=== PATIENT | male | born 1940 | race American Indian/Alaskan Native ===

== ENCOUNTER 2018-12-06 16:12 | Inpatient (IN) | payer MEDICARE ==
[2018-12-06 21:04] VITALS: BMI 27.4
[2018-12-07] MEDS ORDERED: Glucagon Recombinant 1 mg Inj IM PRN ×2 (00:03→12:53)
[2018-12-07] MEDS ORDERED: Dextrose 50% SYRINGE Inj (50 ml) IV PRN ×2 (00:03→12:53)
--- NOTE | 2018-12-07 00:13 | CP.PCM.HP ---
History of Present Illness - History of Present Illness History of Present Illness: This is a 77 year old Male who comes in because of RUE and RLE weakness s/p CVA transferred [place] [facility]. PT was also at the time having a change in mental status at that time and he is here with the inability to feed hi meself. He has a pmhx of DM, CAD s/p 2 stents, as mentioned before CVA, PVD, and s/p right TMA. He has no current compaints at this time. Present on Admission - Present on Admission Any Indicators Present on Admission: No History of DVT/PE: No History of Uncontrolled Diabetes: No Urinary Catheter: No Decubitus Ulcer Present: No Review of Systems - Review of Systems Systems not reviewed;Unavailable: Uncooperative - Constitutional Constitutional: absent: As Per HPI, Anorexia, Chills, Daytime Sleepiness, Excessive Sweating, Fatigue, Fever, Frequent Falls, Headache, Increased Appetite, Lethargy, Malaise, Night Sweats, Snoring, Sleep Apnea, Weight Gain, Weight Loss, Weakness, Other - EENT Eyes: absent: As Per HPI, Blind Spots, Blurred Vision, Change in Vision, Decreased Night Vision, Diplopia, Discharge, Dry Eye, Exophthalmos, Floaters, Irritation, Itchy Eyes, Loss of Peripheral Vision, Pain, Photophobia, Requires Corrective Lenses, Sees Flashes, Spots in Vision, Tunnel Vision, Other Visual Disturbances, Loss of Vision, Other Ears: absent: As Per HPI, Decreased Hearing, Ear Discharge, Ear Pain, Tinnitus, Abnormal Hearing, Disequilibrium, Dizziness, Other - Cardiovascular Cardiovascular: absent: As Per HPI, Acrocyanosis, Chest Pain, Chest Pain at Rest, Chest Pain with Activity, Claudication, Diaphoresis, Dyspnea, Dyspnea on Exertion, Edema, Irregular Heart Rhythm, Pain Radiating to Arm/Neck/Jaw, Leg Edema, Leg Ulcers, Lightheadedness, Orthopnea, Palpitations, Paroxysmal Nocturnal Dyspnea, Pedal Edema, Radiating Pain, Rapid Heart Rate, Slow Heart Rate, Syncope, Other - Respiratory Respiratory: absent: As Per HPI, Cough, Dyspnea, Hemoptysis, Dyspnea on Exertion, Wheezing, Snoring, Stridor, Pain on Inspiration, Chest Congestion, Excessive Mucous Production, Change in Mucous Color, Pain with Coughing, Other - Gastrointestinal Gastrointestinal: absent: As Per HPI, Abdominal Pain, Belching, Bloating, Change in Bowel Habits, Change in Stool Character, Coffee Ground Emesis, Constipation, Cramping, Diarrhea, Dyspepsia, Dysphagia, Early Satiety, Excessive Flatus, Fecal Incontinence, Heartburn, Hematemesis, Hematochezia, Loose Stools, Melena, Nausea, Odynophagia, Temesmus, Vomiting, Other - Musculoskeletal Musculoskeletal: Muscle Weakness - Integumentary Integumentary: absent: As Per HPI, Acne, Alopecia, Bleeding Lesions, Change in Hair, Change in Nails, Change in Pigmentation, Changing Lesions, Dry Skin, Erythema, Furuncle, Hirsutism, Lesions, New Lesions, Non-Healing Lesions, Photosensitivity, Pruritus, Rash, Skin Pain, Skin Ulcer, Sores, Striae, Swelling, Unusual Bruising, Wounds, Jaundice, Other Past Patient History - Past Medical History & Family History Past Medical History?: Yes - Past Social History Smoking Status: Unknown If Ever Smoked - CARDIAC Hx Cardiac Disorders: Yes (history of CAD) Hx Angina: Yes (Stable ANgina) Hx Atrial Fibrillation: No Hx Cardia Arrhythmia: No Hx Circulatory Problems: Yes (severe perpheral artery disease) Hx Congestive Heart Failure: No Hx Heart Attack: No Hx Heart Murmur: Yes (systolic murmur at lsb grade 2/6) Hx Hypercholesterolemia: Yes Hx Hypertension: Yes - PULMONARY Hx Respiratory Disorders: No - NEUROLOGICAL Hx Neurological Disorder: No - HEENT Hx HEENT Problems: No - RENAL Hx Chronic Kidney Disease: No - ENDOCRINE/METABOLIC Hx Diabetes Mellitus Type 1: No Hx Diabetes Mellitus Type 2: Yes (on insulin) - HEMATOLOGICAL/ONCOLOGICAL Hx Blood Disorders: No - INTEGUMENTARY Hx Dermatological Problems: No - MUSCULOSKELETAL/RHEUMATOLOGICAL Hx Musculoskeletal Disorders: No Hx Falls: No - GASTROINTESTINAL Hx Gastrointestinal Disorders: No - GENITOURINARY/GYNECOLOGICAL Hx Genitourinary Disorders: No - PSYCHIATRIC Hx Substance Use: No - SURGICAL HISTORY Hx Amputation: Yes (rt. transmetatarsal amputation.) Hx Coronary Stent: Yes (x2) - ANESTHESIA Hx Anesthesia: Yes Hx Anesthesia Reactions: No Hx Malignant Hyperthermia: No Meds Allergies/Adverse Reactions: Allergies Allergy/AdvReac Type Severity Reaction Status Date / Time No Known Allergies Allergy Verified 12/06/18 21:01 Physical Exam - Constitutional Appears: Well, No Acute Distress - Head Exam Head Exam: ATRAUMATIC, NORMAL INSPECTION, NORMOCEPHALIC - Eye Exam Eye Exam: EOMI, Normal appearance, PERRL Pupil Exam: NORMAL ACCOMODATION - ENT Exam ENT Exam: Mucous Membranes Moist, Normal Exam - Respiratory Exam Respiratory Exam: Clear to Auscultation Bilateral, NORMAL BREATHING PATTERN - Cardiovascular Exam Cardiovascular Exam: REGULAR RHYTHM - GI/Abdominal Exam GI & Abdominal Exam: Normal Bowel Sounds - Rectal Exam Rectal Exam: NORMAL INSPECTION - Extremities Exam Extremities exam: Positive for: normal inspection - Back Exam Back exam: NORMAL INSPECTION - Neurological Exam Neurological exam: Alert, CN II-XII Intact, Oriented x3 Additional comments: right upper and lower extremity weakness - Psychiatric Exam Psychiatric exam: Normal Affect, Normal Mood - Skin Skin Exam: Normal Color, Warm Assessment & Plan - Assessment and Plan (Free Text) Assessment: Patient with a pmhx of DM, CAD s/p 2 stents, CVA with residual right sided weakness, HTN, old NM with 2 stents, PVD, s/p TMA. Plan: transferred to Rehab from [facility] - Physiatry with Dr. West - Will restart all of home meds - carbohydarte controlled diet - swallow eval - Accuchecks ac and HS - restart humulin 70-/30 25 units BId as per home dose - restart aggrenox - restart gabapentin - draw am LABS further recommendations s/p labs - Date & Time Date: 12/07/18 Time: 00:24
[2018-12-07 07:36] LABS: BASO % 0.3 % (0.0-2.0); EOS # 0.1 K/uL (0.0-0.7); EOS % 1.7 % (0.0-4.0); HEMOGLOBIN 10.8 g/dL (12.0-18.0); LYMPH # 1.8 K/uL (1.0-4.3); LYMPH % 37.9 % (20.0-40.0); MEAN CELL VOLUME 80.6 fl (80.0-94.0); MEAN CORPUSCULAR HEMOGLOBIN 24.7 pg (27.0-31.0); MEAN CORPUSCULAR HGB CONC 30.6 g/dL (33.0-37.0); MEAN PLATELET VOLUME 10.7 fl (7.2-11.7); MONO # 0.4 K/uL (0.0-0.8); MONO % 8.5 % (0.0-10.0); NEUT # 2.5 K/uL (1.8-7.0); NEUT % 51.6 % (50.0-75.0); NRBC % 0.2 % (0.0-0.0); PLATELET COUNT 216 K/uL (130-400); RBC 4.39 Mil/uL (4.40-5.90); RED CELL DISTRIBUTION WIDTH 29.1 % (11.5-14.5); WHITE BLOOD COUNT 4.8 K/uL (4.8-10.8)
[2018-12-07 07:42] LABS: ALBUMIN 3.5 g/dL (3.5-5.0); ALT/SGPT 29 U/L (21-72); AST/SGOT 31 U/L (17-59); BLOOD UREA NITROGEN 19 mg/dl (9-20); CALCIUM 8.9 mg/dL (8.4-10.2); GFR NON-AFRICAN AMERICAN > 60; HDL CHOLESTEROL 57 MG/DL (30-70)
[2018-12-07 07:52] LABS: LDL CHOLESTEROL 99 mg/dL (0-129)
[2018-12-07] MEDS ORDERED: Insulin NPH Human 100 Units/ml Inj SC SCH (09:00)
[2018-12-07] MEDS: Aspirin-Dipyridamole 200-25 mg ER Cap PO SCH ×2 (09:19→17:14)
[2018-12-07] MEDS: Insulin Lispro Mix 75/25 100 units/ml (HumaLog) 10ml SC SCH ×2 (09:23→17:18)
[2018-12-07 10:31] LABS: BANDS 1 % (0-2); EOSINOPHIL 6 % (0-7); LYMPHOCYTE 25 % (20-50); MONOCYTE 5 % (0-10); NEUTROPHIL 63 % (42-75); PLATELET ESTIMATE NORMAL (NORMAL); TOTAL CELLS COUNTED 100
[2018-12-07 10:34] LABS: ANISOCYTOSIS SLIGHT; POIKILOCYTOSIS SLIGHT
[2018-12-07 10:35] LABS: BURR CELLS SLIGHT; GIANT PLATELETS PRESENT; LARGE PLATELETS PRESENT; OVALOCYTES SLIGHT; TARGET CELLS SLIGHT; TEARDROP CELLS SLIGHT
--- NOTE | 2018-12-07 13:50 | CP.PCM.CON ---
History of Present Illness - History of Present Illness History of Present Illness: Patient seen/examined. full consult to follow. continue amiodarone 200 mg daily. once cleared from neuro standpoint, will recommend Xarelto 20 mg daily. Past Patient History - Past Medical History & Family History Past Medical History?: Yes - Past Social History Smoking Status: Unknown If Ever Smoked - CARDIAC Hx Cardiac Disorders: Yes (history of CAD) Hx Angina: Yes (Stable ANgina) Hx Atrial Fibrillation: No Hx Cardia Arrhythmia: No Hx Circulatory Problems: Yes (severe perpheral artery disease) Hx Congestive Heart Failure: No Hx Heart Attack: No Hx Heart Murmur: Yes (systolic murmur at lsb grade 2/6) Hx Hypercholesterolemia: Yes Hx Hypertension: Yes - PULMONARY Hx Respiratory Disorders: No - NEUROLOGICAL Hx Neurological Disorder: No - HEENT Hx HEENT Problems: No - RENAL Hx Chronic Kidney Disease: No - ENDOCRINE/METABOLIC Hx Diabetes Mellitus Type 1: No Hx Diabetes Mellitus Type 2: Yes (on insulin) - HEMATOLOGICAL/ONCOLOGICAL Hx Blood Disorders: No - INTEGUMENTARY Hx Dermatological Problems: No - MUSCULOSKELETAL/RHEUMATOLOGICAL Hx Musculoskeletal Disorders: No Hx Falls: No - GASTROINTESTINAL Hx Gastrointestinal Disorders: No - GENITOURINARY/GYNECOLOGICAL Hx Genitourinary Disorders: No - PSYCHIATRIC Hx Substance Use: No - SURGICAL HISTORY Hx Amputation: Yes (rt. transmetatarsal amputation.) Hx Coronary Stent: Yes (x2) - ANESTHESIA Hx Anesthesia: Yes Hx Anesthesia Reactions: No Hx Malignant Hyperthermia: No Meds Allergies/Adverse Reactions: Allergies Allergy/AdvReac Type Severity Reaction Status Date / Time No Known Allergies Allergy Verified 12/06/18 21:01 - Medications Medications: Current Medications Amiodarone HCl (Cordarone) 200 mg PO DAILY [facility] Last Admin: 12/07/18 09:18 Dose: 200 mg Atorvastatin Calcium (Lipitor) 80 mg PO HS NARESH Azithromycin (Zithromax) 250 mg PO DAILY NARESH; Protocol Stop: 12/10/18 09:01 Last Admin: 12/07/18 09:19 Dose: 250 mg Dextrose (Dextrose 50% Inj) 0 ml IV STAT PRN; Protocol PRN Reason: Hypoglycemia Protocol Dextrose (Glutose 15) 0 gm PO ONCE PRN; Protocol PRN Reason: Hypoglycemia Protocol Dextrose (Dextrose 50% Inj) 0 ml IV STAT PRN; Protocol PRN Reason: Hypoglycemia Protocol Dextrose (Glutose 15) 0 gm PO ONCE PRN; Protocol PRN Reason: Hypoglycemia Protocol Dipyridamole/Aspirin (Aggrenox 25-200 Mg) 1 ea PO BID [facility] Last Admin: 12/07/18 09:19 Dose: 1 ea Gabapentin (Neurontin) 300 mg PO BID [facility] Last Admin: 12/07/18 09:17 Dose: 300 mg Glucagon (Glucagen Diagnostic Kit) 0 mg IM STAT PRN; Protocol PRN Reason: Hypoglycemia Protocol Glucagon (Glucagen Diagnostic Kit) 0 mg IM STAT PRN; Protocol PRN Reason: Hypoglycemia Protocol Insulin Human Lispro (Humalog) 0 units SC ACHS [facility]; Protocol Insulin Lispro Protam/Lispro Human (Humalog Mix 75/25) 20 units SC DIN NARESH Insulin Lispro Protam/Lispro Human (Humalog Mix 75/25) 25 units SC BRK [facility] Last Admin: 12/07/18 09:23 Dose: 25 units Pregabalin (Lyrica) 50 mg PO BID [facility] Last Admin: 12/07/18 09:25 Dose: 50 mg Results - Vital Signs Recent Vital Signs: Last Vital Signs Temp 98.1 F 12/07/18 08:00 Pulse 85 12/07/18 09:18 Resp 20 12/07/18 08:00 BP 126/78 12/07/18 09:18 Pulse Ox 99 12/07/18 08:18 - Labs Result Diagrams: 12/07/18 05:30 12/07/18 05:30 Labs: Laboratory Results - last 24 hr 12/07/18 12/07/18 12/07/18 02:13 05:30 05:30 WBC 4.8 RBC 4.39 L Hgb 10.8 L Hct 35.4 MCV 80.6 MCH 24.7 L MCHC 30.6 L RDW 29.1 H Plt Count 216 MPV 10.7 Neut % (Auto) 51.6 Lymph % (Auto) 37.9 [place] % (Auto) 8.5 Eos % (Auto) 1.7 Baso % (Auto) 0.3 Neut # (Auto) 2.5 Lymph # (Auto) 1.8 [place] # (Auto) 0.4 Eos # (Auto) 0.1 Baso # (Auto) 0.0 Neutrophils % (Manual) 63 Band Neutrophils % 1 Lymphocytes % (Manual) 25 Monocytes % (Manual) 5 Eosinophils % (Manual) 6 Platelet Estimate Normal Large Platelets Present Giant Platelets Present Poikilocytosis (manual Slight Anisocytosis (manual) Slight Macrocytosis (manual) Slight Target Cells Slight Tear Drop Cells Slight Ovalocytes Slight [place] Cells Slight Sodium 140 Potassium 3.8 Chloride 106 Carbon Dioxide 24 Anion Gap 14 BUN 19 Creatinine 0.8 Est GFR ( Amer) > 60 Est GFR (Non-Af Amer) > 60 POC Glucose (mg/dL) 153 H Random Glucose 88 Calcium 8.9 Magnesium 2.1 Total Bilirubin 0.5 AST 31 ALT 29 Alkaline Phosphatase 107 Total Protein 6.9 Albumin 3.5 Globulin 3.4 Albumin/Globulin Ratio 1.0 Triglycerides 66 Cholesterol 178 LDL Cholesterol Direct 99 HDL Cholesterol 57 TSH 3rd Generation 2.74 12/07/18 12/07/18 12/07/18 05:52 11:02 12:24 WBC RBC Hgb Hct MCV MCH MCHC RDW Plt Count MPV Neut % (Auto) Lymph % (Auto) [place] % (Auto) Eos % (Auto) Baso % (Auto) Neut # (Auto) Lymph # (Auto) [place] # (Auto) Eos # (Auto) Baso # (Auto) Neutrophils % (Manual) Band Neutrophils % Lymphocytes % (Manual) Monocytes % (Manual) Eosinophils % (Manual) Platelet Estimate Large Platelets Giant Platelets Poikilocytosis (manual Anisocytosis (manual) Macrocytosis (manual) Target Cells Tear Drop Cells Ovalocytes [place] Cells Sodium Potassium Chloride Carbon Dioxide Anion Gap BUN Creatinine Est GFR ( Amer) Est GFR (Non-Af Amer) POC Glucose (mg/dL) 99 362 H 259 H Random Glucose Calcium Magnesium Total Bilirubin AST ALT Alkaline Phosphatase Total Protein Albumin Globulin Albumin/Globulin Ratio Triglycerides Cholesterol LDL Cholesterol Direct HDL Cholesterol TSH 3rd Generation
--- NOTE | 2018-12-07 13:50 | CP.PCM.CON ---
History of Present Illness - History of Present Illness History of Present Illness: I was asked to see patient by Dr Rocha. Patient seen 12/07/18 1300 Patient is a 77 year old male with HTN PAF, hypercholesterolemia, PAD who presents for rehab. The patient was admitted to [facility] [place] with r sided hemiparesis, and found to have an ischemic stroke. He previously was on Xarelto but this was discontinued due to anemia and presumed GI bleed. He has has multiple admissions for anemia requiring blood transfusion. He has no current chest pain or dyspnea. Review of Systems - Constitutional Constitutional: absent: As Per HPI, Anorexia, Chills, Daytime Sleepiness, Excessive Sweating, Fatigue, Fever, Frequent Falls, Headache, Increased Appetite, Lethargy, Malaise, Night Sweats, Snoring, Sleep Apnea, Weight Gain, Weight Loss, Weakness, Other - EENT Eyes: absent: As Per HPI, Blind Spots, Blurred Vision, Change in Vision, Decreased Night Vision, Diplopia, Discharge, Dry Eye, Exophthalmos, Floaters, Irritation, Itchy Eyes, Loss of Peripheral Vision, Pain, Photophobia, Requires Corrective Lenses, Sees Flashes, Spots in Vision, Tunnel Vision, Other Visual Disturbances, Loss of Vision, Other Ears: absent: As Per HPI, Decreased Hearing, Ear Discharge, Ear Pain, Tinnitus, Abnormal Hearing, Disequilibrium, Dizziness, Other Nose/Mouth/Throat: absent: As Per HPI, Epistaxis, Nasal Congestion, Nasal Discharge, Nasal Obstruction, Nasal Trauma, Nose Pain, Post Nasal Drip, Sinus Pain, Sinus Pressure, Bleeding Gums, Change in Voice, Dental Pain, Dry Mouth, Dysphagia, Halitosis, Hoarsness, Lip Swelling, Mouth Lesions, Mouth Pain, Odynophagia, Sore Throat, Throat Swelling, Tongue Swelling, Facial Pain, Neck Pain, Neck Mass, Other - Cardiovascular Cardiovascular: absent: As Per HPI, Acrocyanosis, Chest Pain, Chest Pain at Rest, Chest Pain with Activity, Claudication, Diaphoresis, Dyspnea, Dyspnea on Exertion, Edema, Irregular Heart Rhythm, Pain Radiating to Arm/Neck/Jaw, Leg Edema, Leg Ulcers, Lightheadedness, Orthopnea, Palpitations, Paroxysmal Nocturnal Dyspnea, Pedal Edema, Radiating Pain, Rapid Heart Rate, Slow Heart Rat e, Syncope, Other - Respiratory Respiratory: absent: As Per HPI, Cough, Dyspnea, Hemoptysis, Dyspnea on Exertion, Wheezing, Snoring, Stridor, Pain on Inspiration, Chest Congestion, Excessive Mucous Production, Change in Mucous Color, Pain with Coughing, Other - Gastrointestinal Gastrointestinal: absent: As Per HPI, Abdominal Pain, Belching, Bloating, Change in Bowel Habits, Change in Stool Character, Coffee Ground Emesis, Constipation, Cramping, Diarrhea, Dyspepsia, Dysphagia, Early Satiety, Excessive Flatus, Fecal Incontinence, Heartburn, Hematemesis, Hematochezia, Loose Stools, Melena, Nausea, Odynophagia, Temesmus, Vomiting, Other - Genitourinary Genitourinary: absent: As Per HPI, Change in Urinary Stream, Difficulty Urinating, Dysuria, Flank Pain, Hematuria, Pyuria, Nocturia, Urinary Incontinence, Urinary Frequency, Urinary Hesitance, Urinary Urgency, Voiding Freq/Small Amts, Freq UTI, Hx Renal/Bladder Calculi, Hx /Renal Surgery, Bladder Distension, Other - Musculoskeletal Musculoskeletal: absent: As Per HPI, Abnormal Gait, Arthralgias, Atrophy, Back Pain, Deformity, Joint Swelling, Limited Range of Motion, Loss of Height, Muscle Cramps, Muscle Weakness, Myalgias, Neck Pain, Numbness, Radiating Pain into Limb, Stiffness, Tingling, Other - Integumentary Integumentary: absent: As Per HPI, Acne, Alopecia, Bleeding Lesions, Change in Hair, Change in Nails, Change in Pigmentation, Changing Lesions, Dry Skin, Erythema, Furuncle, Hirsutism, Lesions, New Lesions, Non-Healing Lesions, Photosensitivity, Pruritus, Rash, Skin Pain, Skin Ulcer, Sores, Striae, Swelling, Unusual Bruising, Wounds, Jaundice, Other - Neurological Neurological: Weakness - Psychiatric Psychiatric: absent: As Per HPI, Abnormal Sleep Pattern, Anhedonia, Anxiety, Auditory Hallucinations, Behavioral Changes, Change in Appetite, Change in Libido, Confusion, Depression, Difficulty Concentrating, Hallucinations, Homicidal Ideation, Hopelessness, Irritability, Memory Loss, Mood Swings, Panic Attacks, Paranoia, Suicidal Ideation, Visual Hallucinations, Tactile Hallucinations, Other - Endocrine Endocrine: absent: As Per HPI, Change in Body Appearance, Change in Libido, Cold Intolorance, Deepening of Voice, Excessive Sweating, Fatigue, Flushing, Heat Intolorance, Increase in Ring/Shoe/Hat Size, Palpitations, Polydipsia, Polyphagia, Polyuria, Other - Hematologic/Lymphatic Hematologic: absent: As Per HPI, Easy Bleeding, Easy Bruising, Lymphadenopathy, Other Past Patient History - Past Medical History & Family History Past Medical History?: Yes - Past Social History Smoking Status: Unknown If Ever Smoked - CARDIAC Hx Cardiac Disorders: Yes (history of CAD) Hx Angina: Yes (Stable ANgina) Hx Atrial Fibrillation: No Hx Cardia Arrhythmia: No Hx Circulatory Problems: Yes (severe perpheral artery disease) Hx Congestive Heart Failure: No Hx Heart Attack: No Hx Heart Murmur: Yes (systolic murmur at lsb grade 2/6) Hx Hypercholesterolemia: Yes Hx Hypertension: Yes - PULMONARY Hx Respiratory Disorders: No - NEUROLOGICAL Hx Neurological Disorder: No - HEENT Hx HEENT Problems: No - RENAL Hx Chronic Kidney Disease: No - ENDOCRINE/METABOLIC Hx Diabetes Mellitus Type 1: No Hx Diabetes Mellitus Type 2: Yes (on insulin) - HEMATOLOGICAL/ONCOLOGICAL Hx Blood Disorders: No - INTEGUMENTARY Hx Dermatological Problems: No - MUSCULOSKELETAL/RHEUMATOLOGICAL Hx Musculoskeletal Disorders: No Hx Falls: No - GASTROINTESTINAL Hx Gastrointestinal Disorders: No - GENITOURINARY/GYNECOLOGICAL Hx Genitourinary Disorders: No - PSYCHIATRIC Hx Substance Use: No - SURGICAL HISTORY Hx Amputation: Yes (rt. transmetatarsal amputation.) Hx Coronary Stent: Yes (x2) - ANESTHESIA Hx Anesthesia: Yes Hx Anesthesia Reactions: No Hx Malignant Hyperthermia: No Meds Allergies/Adverse Reactions: Allergies Allergy/AdvReac Type Severity Reaction Status Date / Time No Known Allergies Allergy Verified 12/06/18 21:01 - Medications Medications: Current Medications Amiodarone HCl (Cordarone) 200 mg PO DAILY [facility] Last Admin: 12/07/18 09:18 Dose: 200 mg Atorvastatin Calcium (Lipitor) 80 mg PO HS NARESH Azithromycin (Zithromax) 250 mg PO DAILY NARESH; Protocol Stop: 12/10/18 09:01 Last Admin: 12/07/18 09:19 Dose: 250 mg Dextrose (Dextrose 50% Inj) 0 ml IV STAT PRN; Protocol PRN Reason: Hypoglycemia Protocol Dextrose (Glutose 15) 0 gm PO ONCE PRN; Protocol PRN Reason: Hypoglycemia Protocol Dextrose (Dextrose 50% Inj) 0 ml IV STAT PRN; Protocol PRN Reason: Hypoglycemia Protocol Dextrose (Glutose 15) 0 gm PO ONCE PRN; Protocol PRN Reason: Hypoglycemia Protocol Dipyridamole/Aspirin (Aggrenox 25-200 Mg) 1 ea PO BID [facility] Last Admin: 12/07/18 09:19 Dose: 1 ea Gabapentin (Neurontin) 300 mg PO BID [facility] Last Admin: 12/07/18 09:17 Dose: 300 mg Glucagon (Glucagen Diagnostic Kit) 0 mg IM STAT PRN; Protocol PRN Reason: Hypoglycemia Protocol Glucagon (Glucagen Diagnostic Kit) 0 mg IM STAT PRN; Protocol PRN Reason: Hypoglycemia Protocol Insulin Human Lispro (Humalog) 0 units SC ACHS [facility]; Protocol Insulin Lispro Protam/Lispro Human (Humalog Mix 75/25) 20 units SC DIN NARESH Insulin Lispro Protam/Lispro Human (Humalog Mix 75/25) 25 units SC BRK [facility] Last Admin: 12/07/18 09:23 Dose: 25 units Pregabalin (Lyrica) 50 mg PO BID [facility] Last Admin: 12/07/18 09:25 Dose: 50 mg Physical Exam - Constitutional Appears: Non-toxic - Head Exam Head Exam: NORMAL INSPECTION - Eye Exam Eye Exam: Normal appearance - ENT Exam ENT Exam: Mucous Membranes Moist - Neck Exam Neck exam: Positive for: Full Rom - Respiratory Exam Respiratory Exam: NORMAL BREATHING PATTERN - Cardiovascular Exam Cardiovascular Exam: REGULAR RHYTHM - GI/Abdominal Exam GI & Abdominal Exam: Normal Bowel Sounds - Rectal Exam Rectal Exam: Deferred - Extremities Exam Extremities exam: Negative for: pedal edema - Back Exam Back exam: NORMAL INSPECTION - Neurological Exam Neurological exam: Alert, Oriented x3 - Psychiatric Exam Psychiatric exam: Normal Affect - Skin Skin Exam: Normal Color Results - Vital Signs Recent Vital Signs: Last Vital Signs Temp 98.1 F 12/07/18 08:00 Pulse 85 12/07/18 09:18 Resp 20 12/07/18 08:00 BP 126/78 12/07/18 09:18 Pulse Ox 99 12/07/18 08:18 - Labs Result Diagrams: 12/07/18 05:30 12/07/18 05:30 Labs: Laboratory Results - last 24 hr 12/07/18 12/07/18 12/07/18 02:13 05:30 05:30 WBC 4.8 RBC 4.39 L Hgb 10.8 L Hct 35.4 MCV 80.6 MCH 24.7 L MCHC 30.6 L RDW 29.1 H Plt Count 216 MPV 10.7 Neut % (Auto) 51.6 Lymph % (Auto) 37.9 [place] % (Auto) 8.5 Eos % (Auto) 1.7 Baso % (Auto) 0.3 Neut # (Auto) 2.5 Lymph # (Auto) 1.8 [place] # (Auto) 0.4 Eos # (Auto) 0.1 Baso # (Auto) 0.0 Neutrophils % (Manual) 63 Band Neutrophils % 1 Lymphocytes % (Manual) 25 Monocytes % (Manual) 5 Eosinophils % (Manual) 6 Platelet Estimate Normal Large Platelets Present Giant Platelets Present Poikilocytosis (manual Slight Anisocytosis (manual) Slight Macrocytosis (manual) Slight Target Cells Slight Tear Drop Cells Slight Ovalocytes Slight [place] Cells Slight Sodium 140 Potassium 3.8 Chloride 106 Carbon Dioxide 24 Anion Gap 14 BUN 19 Creatinine 0.8 Est GFR ( Amer) > 60 Est GFR (Non-Af Amer) > 60 POC Glucose (mg/dL) 153 H Random Glucose 88 Calcium 8.9 Magnesium 2.1 Total Bilirubin 0.5 AST 31 ALT 29 Alkaline Phosphatase 107 Total Protein 6.9 Albumin 3.5 Globulin 3.4 Albumin/Globulin Ratio 1.0 Triglycerides 66 Cholesterol 178 LDL Cholesterol Direct 99 HDL Cholesterol 57 TSH 3rd Generation 2.74 12/07/18 12/07/18 12/07/18 05:52 11:02 12:24 WBC RBC Hgb Hct MCV MCH MCHC RDW Plt Count MPV Neut % (Auto) Lymph % (Auto) [place] % (Auto) Eos % (Auto) Baso % (Auto) Neut # (Auto) Lymph # (Auto) [place] # (Auto) Eos # (Auto) Baso # (Auto) Neutrophils % (Manual) Band Neutrophils % Lymphocytes % (Manual) Monocytes % (Manual) Eosinophils % (Manual) Platelet Estimate Large Platelets Giant Platelets Poikilocytosis (manual Anisocytosis (manual) Macrocytosis (manual) Target Cells Tear Drop Cells Ovalocytes [place] Cells Sodium Potassium Chloride Carbon Dioxide Anion Gap BUN Creatinine Est GFR ( Amer) Est GFR (Non-Af Amer) POC Glucose (mg/dL) 99 362 H 259 H Random Glucose Calcium Magnesium Total Bilirubin AST ALT Alkaline Phosphatase Total Protein Albumin Globulin Albumin/Globulin Ratio Triglycerides Cholesterol LDL Cholesterol Direct HDL Cholesterol TSH 3rd Generation - EKG Data EKG Interpreted by: Myself EKG shows normal: Sinus rhythm Assessment & Plan (1) PAF (paroxysmal atrial fibrillation) Assessment and Plan: ideally patient would benefit from anticaogulant therapy. will defer to neruology Status: Acute (2) PAD (peripheral artery disease) Assessment and Plan: on antiplatelet therapy Status: Acute (3) Ischemic stroke Assessment and Plan: as above. neuro following Status: Acute
--- NOTE | 2018-12-07 15:10 | CP.PCM.CON ---
History of Present Illness - History of Present Illness History of Present Illness: Neurology Consultation Note: Consult requested by Dr. Rocha Mr. Trivedi is a 77-year-old man with a past medical history of HTN, HLD, CAD s/p stenting with 2 previous VT, PVD s/p TMA, RLE angioplasty, DM, neuropathy, spinal stenosis, previous ischemic stroke who was admitted recently to [facility] for acute onset of right side hemiplegia, suspected of having a new ischemic stroke. He was transferred to [facility] acute rehab yesterday. Neurology was consulted to assist with the management and care. He is currently on Aggrenox and Lipitor 80 mg daily for secondary stroke prevention. The patient had no new complaints today. Review of Systems - Constitutional Constitutional: As Per HPI - EENT Eyes: absent: As Per HPI, Blind Spots, Blurred Vision, Change in Vision, Decreased Night Vision, Diplopia, Discharge, Dry Eye, Exophthalmos, Floaters, Irritation, Itchy Eyes, Loss of Peripheral Vision, Pain, Photophobia, Requires Corrective Lenses, Sees Flashes, Spots in Vision, Tunnel Vision, Other Visual Disturbances, Loss of Vision, Other Ears: absent: As Per HPI, Decreased Hearing, Ear Discharge, Ear Pain, Tinnitus, Abnormal Hearing, Disequilibrium, Dizziness, Other Nose/Mouth/Throat: absent: As Per HPI, Epistaxis, Nasal Congestion, Nasal Discharge, Nasal Obstruction, Nasal Trauma, Nose Pain, Post Nasal Drip, Sinus Pain, Sinus Pressure, Bleeding Gums, Change in Voice, Dental Pain, Dry Mouth, Dysphagia, Halitosis, Hoarsness, Lip Swelling, Mouth Lesions, Mouth Pain, Odynophagia, Sore Throat, Throat Swelling, Tongue Swelling, Facial Pain, Neck Pain, Neck Mass, Other - Cardiovascular Cardiovascular: absent: As Per HPI, Acrocyanosis, Chest Pain, Chest Pain at Rest, Chest Pain with Activity, Claudication, Diaphoresis, Dyspnea, Dyspnea on Exertion, Edema, Irregular Heart Rhythm, Pain Radiating to Arm/Neck/Jaw, Leg Edema, Leg Ulcers, Lightheadedness, Orthopnea, Palpitations, Paroxysmal Nocturnal Dyspnea, Pedal Edema, Radiating Pain, Rapid Heart Rate, Slow Heart Rate, Syncope, Other - Respiratory Respiratory: absent: As Per HPI, Cough, Dyspnea, Hemoptysis, Dyspnea on Exertion, Wheezing, Snoring, Stridor, Pain on Inspiration, Chest Congestion, Excessive Mucous Production, Change in Mucous Color, Pain with Coughing, Other - Gastrointestinal Gastrointestinal: absent: As Per HPI, Abdominal Pain, Belching, Bloating, Change in Bowel Habits, Change in Stool Character, Coffee Ground Emesis, Constipation, Cramping, Diarrhea, Dyspepsia, Dysphagia, Early Satiety, Excessive Flatus, Fecal Incontinence, Heartburn, Hematemesis, Hematochezia, Loose Stools, Melena, Nausea, Odynophagia, Temesmus, Vomiting, Other - Musculoskeletal Musculoskeletal: absent: As Per HPI, Abnormal Gait, Arthralgias, Atrophy, Back Pain, Deformity, Joint Swelling, Limited Range of Motion, Loss of Height, Muscle Cramps, Muscle Weakness, Myalgias, Neck Pain, Numbness, Radiating Pain into Limb, Stiffness, Tingling, Other - Neurological Neurological: As Per HPI - Psychiatric Psychiatric: absent: As Per HPI, Abnormal Sleep Pattern, Anhedonia, Anxiety, Auditory Hallucinations, Behavioral Changes, Change in Appetite, Change in Libido, Confusion, Depression, Difficulty Concentrating, Hallucinations, Homicidal Ideation, Hopelessness, Irritability, Memory Loss, Mood Swings, Panic Attacks, Paranoia, Suicidal Ideation, Visual Hallucinations, Tactile Hallucinations, Other - Endocrine Endocrine: absent: As Per HPI, Change in Body Appearance, Change in Libido, Cold Intolorance, Deepening of Voice, Excessive Sweating, Fatigue, Flushing, Heat Intolorance, Increase in Ring/Shoe/Hat Size, Palpitations, Polydipsia, Polyphagia, Polyuria, Other - Hematologic/Lymphatic Hematologic: absent: As Per HPI, Easy Bleeding, Easy Bruising, Lymphadenopathy, Other Past Patient History - Past Medical History & Family History Past Medical History?: Yes - Past Social History Smoking Status: Unknown If Ever Smoked - CARDIAC Hx Cardiac Disorders: Yes (history of CAD) Hx Angina: Yes (Stable ANgina) Hx Atrial Fibrillation: No Hx Cardia Arrhythmia: No Hx Circulatory Problems: Yes (severe perpheral artery disease) Hx Congestive Heart Failure: No Hx Heart Attack: No Hx Heart Murmur: Yes (systolic murmur at lsb grade 2/6) Hx Hypercholesterolemia: Yes Hx Hypertension: Yes - PULMONARY Hx Respiratory Disorders: No - NEUROLOGICAL Hx Neurological Disorder: No - HEENT Hx HEENT Problems: No - RENAL Hx Chronic Kidney Disease: No - ENDOCRINE/METABOLIC Hx Diabetes Mellitus Type 1: No Hx Diabetes Mellitus Type 2: Yes (on insulin) - HEMATOLOGICAL/ONCOLOGICAL Hx Blood Disorders: No - INTEGUMENTARY Hx Dermatological Problems: No - MUSCULOSKELETAL/RHEUMATOLOGICAL Hx Musculoskeletal Disorders: No Hx Falls: No - GASTROINTESTINAL Hx Gastrointestinal Disorders: No - GENITOURINARY/GYNECOLOGICAL Hx Genitourinary Disorders: No - PSYCHIATRIC Hx Substance Use: No - SURGICAL HISTORY Hx Amputation: Yes (rt. transmetatarsal amputation.) Hx Coronary Stent: Yes (x2) - ANESTHESIA Hx Anesthesia: Yes Hx Anesthesia Reactions: No Hx Malignant Hyperthermia: No Meds Allergies/Adverse Reactions: Allergies Allergy/AdvReac Type Severity Reaction Status Date / Time No Known Allergies Allergy Verified 12/06/18 21:01 - Medications Medications: Current Medications Amiodarone HCl (Cordarone) 200 mg PO DAILY COUNT [facility]CLUDES [facility] Last Admin: 12/07/18 09:18 Dose: 200 mg Atorvastatin Calcium (Lipitor) 80 mg PO HS COUNT INCLUDES [facility] Azithromycin (Zithromax) 250 mg PO DAILY COUNT INCLUDES [facility]; Protocol Stop: 12/10/18 09:01 Last Admin: 12/07/18 09:19 Dose: 250 mg Dextrose (Dextrose 50% Inj) 0 ml IV STAT PRN; Protocol PRN Reason: Hypoglycemia Protocol Dextrose (Glutose 15) 0 gm PO ONCE PRN; Protocol PRN Reason: Hypoglycemia Protocol Dextrose (Dextrose 50% Inj) 0 ml IV STAT PRN; Protocol PRN Reason: Hypoglycemia Protocol Dextrose (Glutose 15) 0 gm PO ONCE PRN; Protocol PRN Reason: Hypoglycemia Protocol Dipyridamole/Aspirin (Aggrenox 25-200 Mg) 1 ea PO BID COUNT [facility]CLUDES [facility] Last Admin: 12/07/18 09:19 Dose: 1 ea Gabapentin (Neurontin) 300 mg PO BID COUNT [facility]CLUDES [facility] Last Admin: 12/07/18 09:17 Dose: 300 mg Glucagon (Glucagen Diagnostic Kit) 0 mg IM STAT PRN; Protocol PRN Reason: Hypoglycemia Protocol Glucagon (Glucagen Diagnostic Kit) 0 mg IM STAT PRN; Protocol PRN Reason: Hypoglycemia Protocol Insulin Human Lispro (Humalog) 0 units SC ACHS COUNT INCLUDES [facility]; Protocol Insulin Lispro Protam/Lispro Human (Humalog Mix 75/25) 20 units SC DIN COUNT INCLUDES [facility] Insulin Lispro Protam/Lispro Human (Humalog Mix 75/25) 25 units SC BRK COUNT INCLUDES THE [facility] Last Admin: 12/07/18 09:23 Dose: 25 units Pregabalin (Lyrica) 50 mg PO BID NARESH Last Admin: 12/07/18 09:25 Dose: 50 mg Physical Exam - Constitutional Appears: Well - Head Exam Head Exam: ATRAUMATIC, NORMAL INSPECTION, NORMOCEPHALIC - Eye Exam Eye Exam: EOMI, Normal appearance, PERRL Pupil Exam: NORMAL ACCOMODATION, PERRL - ENT Exam ENT Exam: Mucous Membranes Moist, Normal Exam - Neck Exam Neck exam: Positive for: Normal Inspection - Respiratory Exam Respiratory Exam: Clear to Auscultation Bilateral, NORMAL BREATHING PATTERN - Cardiovascular Exam Cardiovascular Exam: REGULAR RHYTHM, +S1, +S2 - GI/Abdominal Exam GI & Abdominal Exam: Normal Bowel Sounds, Soft. absent: Tenderness - Extremities Exam Extremities exam: Positive for: normal inspection - Back Exam Back exam: NORMAL INSPECTION - Neurological Exam Neurological exam: Alert, CN II-XII Intact, Oriented x3 Additional comments: Right facial droop noted, speech is slightly dysarthric, but not aphasic. Reflexes are brisk on the right side. He has a slight left side visual field cut. Strength is 3/5 in right upper extremity and 4/5 in right lower extremity. Sensation is symmetrical throughout. Strength on the left side is 4/5 in both upper and lower extremities. NIHSS = 5 - Psychiatric Exam Psychiatric exam: Normal Affect, Normal Mood - Skin Skin Exam: Dry, Intact, Normal Color, Warm Results - Vital Signs Recent Vital Signs: Last Vital Signs Temp 97 F L 12/07/18 13:00 Pulse 75 12/07/18 13:00 Resp 20 12/07/18 13:00 BP 145/65 12/07/18 13:00 Pulse Ox 98 12/07/18 13:00 - Labs Result Diagrams: 12/07/18 05:30 12/07/18 05:30 Labs: Laboratory Results - last 24 hr 12/07/18 12/07/18 12/07/18 02:13 05:30 05:30 WBC 4.8 RBC 4.39 L Hgb 10.8 L Hct 35.4 MCV 80.6 MCH 24.7 L MCHC 30.6 L RDW 29.1 H Plt Count 216 MPV 10.7 Neut % (Auto) 51.6 Lymph % (Auto) 37.9 [place] % (Auto) 8.5 Eos % (Auto) 1.7 Baso % (Auto) 0.3 Neut # (Auto) 2.5 Lymph # (Auto) 1.8 [place] # (Auto) 0.4 Eos # (Auto) 0.1 Baso # (Auto) 0.0 Neutrophils % (Manual) 63 Band Neutrophils % 1 Lymphocytes % (Manual) 25 Monocytes % (Manual) 5 Eosinophils % (Manual) 6 Platelet Estimate Normal Large Platelets Present Giant Platelets Present Poikilocytosis (manual Slight Anisocytosis (manual) Slight Macrocytosis (manual) Slight Target Cells Slight Tear Drop Cells Slight Ovalocytes Slight [place] Cells Slight Sodium 140 Potassium 3.8 Chloride 106 Carbon Dioxide 24 Anion Gap 14 BUN 19 Creatinine 0.8 Est GFR ( Amer) > 60 Est GFR (Non-Af Amer) > 60 POC Glucose (mg/dL) 153 H Random Glucose 88 Calcium 8.9 Magnesium 2.1 Total Bilirubin 0.5 AST 31 ALT 29 Alkaline Phosphatase 107 Total Protein 6.9 Albumin 3.5 Globulin 3.4 Albumin/Globulin Ratio 1.0 Triglycerides 66 Cholesterol 178 LDL Cholesterol Direct 99 HDL Cholesterol 57 TSH 3rd Generation 2.74 12/07/18 12/07/18 12/07/18 05:52 11:02 12:24 WBC RBC Hgb Hct MCV MCH MCHC RDW Plt Count MPV Neut % (Auto) Lymph % (Auto) [place] % (Auto) Eos % (Auto) Baso % (Auto) Neut # (Auto) Lymph # (Auto) [place] # (Auto) Eos # (Auto) Baso # (Auto) Neutrophils % (Manual) Band Neutrophils % Lymphocytes % (Manual) Monocytes % (Manual) Eosinophils % (Manual) Platelet Estimate Large Platelets Giant Platelets Poikilocytosis (manual Anisocytosis (manual) Macrocytosis (manual) Target Cells Tear Drop Cells Ovalocytes [place] Cells Sodium Potassium Chloride Carbon Dioxide Anion Gap BUN Creatinine Est GFR ( Amer) Est GFR (Non-Af Amer) POC Glucose (mg/dL) 99 362 H 259 H Random Glucose Calcium Magnesium Total Bilirubin AST ALT Alkaline Phosphatase Total Protein Albumin Globulin Albumin/Globulin Ratio Triglycerides Cholesterol LDL Cholesterol Direct HDL Cholesterol TSH 3rd Generation Assessment & Plan (1) Ischemic stroke Assessment and Plan: Continue Aggrenox for secondary stroke prevention along with high dose Lipitor 80 mg daily. Will evaluate the degree of damage and evolution of the recent ischemic stroke with a non-contrast CT scan of the head. PT/OT per the rehab team. Continue adequate hydration with 2-3 liters daily to maintain cerebral pe rfusion. Treat underlying risk factors. Thank you for this consultation. Status: Acute
--- NOTE | 2018-12-07 15:31 | PCM.OPOC ---
Physiatry Overall Plan of Care - Overall Plan of Care Estimated Length of Stay in Weeks: 3 Rehab Impairment: Mobility, Gait, Cognition, Speech, Balance, Coordination Etiologic Diagnosis: Cerebrovascular Accident Rehab/Medical Prognosis: Fair - Anticipated Interventions Physical Therapy:: Yes Number of Hours: 1 Number of times per week: 5 Number of Week(s) Duration: 3 Occupational Therapy:: Yes Number of Hours: 1 Number of times per week: 5 Number of Week(s) Duration: 3 Speech Therapy:: Yes Number of Hours: 1 Number of times per week: 5 Number of Week(s) Duration: 3 Recreational Therapy:: Yes Number of Hours: 1 Number of times per week: 5 Number of Week(s) Duration: 3 - Therapy Goals Bed Mobility: Independent Ambulation: Contact Guard Functional Positional Changes:: Supervision - Functional Status Prior to Admission: Independent Current Status: needs assistance in adls, transfers and gait - Functional Outcomes Functional Outcomes: fair - Discharge Plan Identification of Barriers to Discharge: Cognition Discharge Destination: Home
--- NOTE | 2018-12-07 15:35 | PCM.CPAPS ---
History of Present Illness - History of Present Illness History of Present Illness: 77 year male with diagnosis of CVA, CAD s/p stents, MT, PVD, R TMA, admitted to acute rehab Review of Systems - Musculoskeletal Musculoskeletal: Abnormal Gait, Muscle Weakness - Neurological Neurological: Abnormal Gait, Weakness Past Patient History - Past Medical History & Family History Past Medical History?: Yes - Past Social History Smoking Status: Unknown If Ever Smoked - CARDIAC Hx Cardiac Disorders: Yes (history of CAD) Hx Angina: Yes (Stable ANgina) Hx Atrial Fibrillation: No Hx Cardia Arrhythmia: No Hx Circulatory Problems: Yes (severe perpheral artery disease) Hx Congestive Heart Failure: No Hx Heart Attack: No Hx Heart Murmur: Yes (systolic murmur at lsb grade 2/6) Hx Hypercholesterolemia: Yes Hx Hypertension: Yes - PULMONARY Hx Respiratory Disorders: No - NEUROLOGICAL Hx Neurological Disorder: No - HEENT Hx HEENT Problems: No - RENAL Hx Chronic Kidney Disease: No - ENDOCRINE/METABOLIC Hx Diabetes Mellitus Type 1: No Hx Diabetes Mellitus Type 2: Yes (on insulin) - HEMATOLOGICAL/ONCOLOGICAL Hx Blood Disorders: No - INTEGUMENTARY Hx Dermatological Problems: No - MUSCULOSKELETAL/RHEUMATOLOGICAL Hx Musculoskeletal Disorders: No Hx Falls: No - GASTROINTESTINAL Hx Gastrointestinal Disorders: No - GENITOURINARY/GYNECOLOGICAL Hx Genitourinary Disorders: No - PSYCHIATRIC Hx Substance Use: No - SURGICAL HISTORY Hx Amputation: Yes (rt. transmetatarsal amputation.) Hx Coronary Stent: Yes (x2) - ANESTHESIA Hx Anesthesia: Yes Hx Anesthesia Reactions: No Hx Malignant Hyperthermia: No Meds Allergies/Adverse Reactions: Allergies Allergy/AdvReac Type Severity Reaction Status Date / Time No Known Allergies Allergy Verified 12/06/18 21:01 - Medications Medications: Current Medications Amiodarone HCl (Cordarone) 200 mg PO DAILY NARESH Last Admin: 12/07/18 09:18 Dose: 200 mg Atorvastatin Calcium (Lipitor) 80 mg PO HS NARESH Azithromycin (Zithromax) 250 mg PO DAILY NARESH; Protocol Stop: 12/10/18 09:01 Last Admin: 12/07/18 09:19 Dose: 250 mg Dextrose (Dextrose 50% Inj) 0 ml IV STAT PRN; Protocol PRN Reason: Hypoglycemia Protocol Dextrose (Glutose 15) 0 gm PO ONCE PRN; Protocol PRN Reason: Hypoglycemia Protocol Dextrose (Dextrose 50% Inj) 0 ml IV STAT PRN; Protocol PRN Reason: Hypoglycemia Protocol Dextrose (Glutose 15) 0 gm PO ONCE PRN; Protocol PRN Reason: Hypoglycemia Protocol Dipyridamole/Aspirin (Aggrenox 25-200 Mg) 1 ea PO BID [facility] Last Admin: 12/07/18 09:19 Dose: 1 ea Gabapentin (Neurontin) 300 mg PO BID [facility] Last Admin: 12/07/18 09:17 Dose: 300 mg Glucagon (Glucagen Diagnostic Kit) 0 mg IM STAT PRN; Protocol PRN Reason: Hypoglycemia Protocol Glucagon (Glucagen Diagnostic Kit) 0 mg IM STAT PRN; Protocol PRN Reason: Hypoglycemia Protocol Insulin Human Lispro (Humalog) 0 units SC ACHS [facility]; Protocol Insulin Lispro Protam/Lispro Human (Humalog Mix 75/25) 20 units SC DIN NARESH Insulin Lispro Protam/Lispro Human (Humalog Mix 75/25) 25 units SC BRK [facility] Last Admin: 12/07/18 09:23 Dose: 25 units Pregabalin (Lyrica) 50 mg PO BID [facility] Last Admin: 12/07/18 09:25 Dose: 50 mg Physical Exam - Constitutional Appears: Well - Head Exam Head Exam: ATRAUMATIC, NORMAL INSPECTION, NORMOCEPHALIC - Eye Exam Eye Exam: EOMI, Normal appearance Pupil Exam: NORMAL ACCOMODATION, PERRL - ENT Exam ENT Exam: Mucous Membranes Moist, Normal Exam - Neck Exam Neck exam: Positive for: Normal Inspection - Respiratory Exam Respiratory Exam: Clear to Auscultation Bilateral, NORMAL BREATHING PATTERN - Cardiovascular Exam Cardiovascular Exam: REGULAR RHYTHM - GI/Abdominal Exam GI & Abdominal Exam: Normal Bowel Sounds - Rectal Exam Rectal Exam: NORMAL INSPECTION - Exam External exam: NORMAL EXTERNAL EXAM - Extremities Exam Extremities exam: Positive for: normal inspection Additional comments: right arm and right leg weakness, R TMA - Back Exam Back exam: NORMAL INSPECTION - Neurological Exam Neurological exam: Alert Additional comments: right arm and right leg weakness - Psychiatric Exam Psychiatric exam: Normal Mood - Skin Skin Exam: Dry, Normal Color Results - Vital Signs Recent Vital Signs: Last Vital Signs Temp 97 F L 12/07/18 13:00 Pulse 75 12/07/18 13:00 Resp 20 12/07/18 13:00 BP 145/65 12/07/18 13:00 Pulse Ox 98 12/07/18 13:00 - Labs Result Diagrams: 12/07/18 05:30 12/07/18 05:30 Labs: Laboratory Results - last 24 hr 12/07/18 12/07/18 12/07/18 02:13 05:30 05:30 WBC 4.8 RBC 4.39 L Hgb 10.8 L Hct 35.4 MCV 80.6 MCH 24.7 L MCHC 30.6 L RDW 29.1 H Plt Count 216 MPV 10.7 Neut % (Auto) 51.6 Lymph % (Auto) 37.9 [place] % (Auto) 8.5 Eos % (Auto) 1.7 Baso % (Auto) 0.3 Neut # (Auto) 2.5 Lymph # (Auto) 1.8 [place] # (Auto) 0.4 Eos # (Auto) 0.1 Baso # (Auto) 0.0 Neutrophils % (Manual) 63 Band Neutrophils % 1 Lymphocytes % (Manual) 25 Monocytes % (Manual) 5 Eosinophils % (Manual) 6 Platelet Estimate Normal Large Platelets Present Giant Platelets Present Poikilocytosis (manual Slight Anisocytosis (manual) Slight Macrocytosis (manual) Slight Target Cells Slight Tear Drop Cells Slight Ovalocytes Slight [place] Cells Slight Sodium 140 Potassium 3.8 Chloride 106 Carbon Dioxide 24 Anion Gap 14 BUN 19 Creatinine 0.8 Est GFR ( Amer) > 60 Est GFR (Non-Af Amer) > 60 POC Glucose (mg/dL) 153 H Random Glucose 88 Calcium 8.9 Magnesium 2.1 Total Bilirubin 0.5 AST 31 ALT 29 Alkaline Phosphatase 107 Total Protein 6.9 Albumin 3.5 Globulin 3.4 Albumin/Globulin Ratio 1.0 Triglycerides 66 Cholesterol 178 LDL Cholesterol Direct 99 HDL Cholesterol 57 TSH 3rd Generation 2.74 12/07/18 12/07/18 12/07/18 05:52 11:02 12:24 WBC RBC Hgb Hct MCV MCH MCHC RDW Plt Count MPV Neut % (Auto) Lymph % (Auto) [place] % (Auto) Eos % (Auto) Baso % (Auto) Neut # (Auto) Lymph # (Auto) [place] # (Auto) Eos # (Auto) Baso # (Auto) Neutrophils % (Manual) Band Neutrophils % Lymphocytes % (Manual) Monocytes % (Manual) Eosinophils % (Manual) Platelet Estimate Large Platelets Giant Platelets Poikilocytosis (manual Anisocytosis (manual) Macrocytosis (manual) Target Cells Tear Drop Cells Ovalocytes [place] Cells Sodium Potassium Chloride Carbon Dioxide Anion Gap BUN Creatinine Est GFR ( Amer) Est GFR (Non-Af Amer) POC Glucose (mg/dL) 99 362 H 259 H Random Glucose Calcium Magnesium Total Bilirubin AST ALT Alkaline Phosphatase Total Protein Albumin Globulin Albumin/Globulin Ratio Triglycerides Cholesterol LDL Cholesterol Direct HDL Cholesterol TSH 3rd Generation Assessment & Plan (1) Ischemic stroke Assessment and Plan: plan for physical, occupational, rec and speech therapy covering for Dr West Status: Acute - Functional Status Prior to Admission: independent Current Status: needs assistance in adls, transfers and gait Impairment Code: 01.2 CVA
[2018-12-07] MEDS: Insulin Lispro (humaLOG) 100 Units/ml Inj SC SCH ×2 (17:15→21:32)
--- NOTE | 2018-12-07 19:41 | HP ---
CHIEF COMPLAINT: The patient was sent for acute rehab after suffering acute CVA. HISTORY OF PRESENT ILLNESS: This is a 77-year-old male, who was admitted to [facility] for right upper and right lower extremity weakness and after stabilizing, the patient was transferred to acute rehab in for further management. REVIEW OF SYSTEMS: At this time is positive for right-sided weakness. Review of systems otherwise is negative for headache, dizziness, syncope, loss of consciousness, chest pain, shortness of breath, nausea, vomiting, diarrhea, constipation, and any new joint or extremity pain. Review of systems of all other organ system is unremarkable. PAST MEDICAL HISTORY: Significant for diabetes, coronary artery disease, CVA, peripheral vascular disease. PAST SURGICAL HISTORY: Remarkable for amputation, transmetatarsal, right lower extremity. PERSONAL HISTORY: The patient is currently nonsmoker, nondrinker. No substance abuse. MEDICATIONS: The patient is on multiple medications, which was as per reconciliation sheet, which was reviewed and ordered. ALLERGIES: THE PATIENT IS NOT ALLERGIC TO ANY MEDICATIONS. FAMILY HISTORY: Noncontributory. PHYSICAL EXAMINATION: GENERAL: Well-built, well-nourished 77-year-old male, in no acute distress. VITAL SIGNS: Temperature 97.3, pulse 63, respirations 20, blood pressure 167/77. HEENT: Pupils reacting to light. No JVD. No thyromegaly. No lymphadenopathy. No nystagmus. Normocephalic, atraumatic skull. HEART: S1 and S2, normal and regular. No significant murmur, gallop, or rub is heard. LUNGS: Good bilateral air exchange. No rales or rhonchi. ABDOMEN: Soft and nontender. No organomegaly. No fluid. Bowel sounds are plus and normal. EXTREMITIES: No edema. No calf swelling. No tenderness. No acute ischemia. The patient is status post amputation. CENTRAL NERVOUS SYSTEM: Essentially reviewed. The patient with right hemiparesis. DIAGNOSTIC DATA: Available diagnostic data reviewed. WBC 4.8, hemoglobin 10.8, hematocrit 35.4, platelets 216. Sodium 140, potassium 3.8, chloride 106, bicarb 24, BUN 19, creatinine 0.8. Accu-Cheks is 99 and 153. ADMITTING IMPRESSION: 1. Acute cerebrovascular accident. 2. Type 2 diabetes. 3. Hypertension. 4. Elevated cholesterol. 5. Cardiac arrhythmia. PLAN: As ordered. Case and plan discussed with the patient. Husam Rocha MD
[2018-12-08] MEDS: Insulin Lispro (humaLOG) 100 Units/ml Inj SC SCH ×4 (06:46→21:03)
[2018-12-08] MEDS: Aspirin-Dipyridamole 200-25 mg ER Cap PO SCH ×2 (08:02→17:05)
[2018-12-08] MEDS: Insulin Lispro Mix 75/25 100 units/ml (HumaLog) 10ml SC SCH ×2 (08:04→17:06)
--- NOTE | 2018-12-08 10:19 | CT ---
Date of service: 12/07/2018 PROCEDURE: CT HEAD WITHOUT CONTRAST. HISTORY: ischemic stroke COMPARISON: 2011 CT scan TECHNIQUE: Axial computed tomography images were obtained through the head/brain without intravenous contrast. Radiation dose: Total exam DLP = 1612.36 mGy-cm. This CT exam was performed using one or more of the following dose reduction techniques: Automated exposure control, adjustment of the mA and/or kV according to patient size, and/or use of iterative reconstruction technique. FINDINGS: HEMORRHAGE: No intracranial hemorrhage or extra-axial collection is noted. No cortical effacement is seen. BRAIN: There are chronic areas of mild encephalomalacia seen in the bilateral occipital lobe region consistent with chronic infarcts. Diffuse cerebral cortical atrophy is seen elsewhere with scattered small vessel changes noted in the white matter tracts. Posterior fossa is also noted to have a small chronic area of possible encephalomalacia in the inferior right cerebellar hemisphere. No tonsillar ectopia is seen. No sellar masses are noted. VENTRICLES: Unremarkable. No hydrocephalus. CALVARIUM: Unremarkable. PARANASAL SINUSES: Mild mucosal changes are seen in the sinuses without fluid level. MASTOID AIR CELLS: Unremarkable as visualized. No inflammatory changes. OTHER FINDINGS: None. IMPRESSION: No evidence of recent infarct or intracranial hemorrhage. Chronic areas of mild encephalomalacia in the occipital lobe regions suggesting chronic infarct. No hydrocephalus. Age related cerebral atrophy. This agrees with preliminary report.
--- NOTE | 2018-12-08 11:39 | CP.PCM.PN ---
Subjective - Date & Time of Evaluation Date of Evaluation: 12/08/18 Time of Evaluation: 11:00 - Subjective Subjective: patient is sitting in a chair. he is comfortable. Objective - Vital Signs/Intake and Output Vital Signs (last 24 hours): Temp Pulse Resp BP Pulse Ox 97.3 F L 78 20 144/78 98 12/08/18 09:36 12/08/18 09:36 12/08/18 09:36 12/08/18 09:36 12/08/18 09:36 - Medications Medications: Current Medications Amiodarone HCl (Cordarone) 200 mg PO DAILY [facility] Last Admin: 12/08/18 08:03 Dose: 200 mg Atorvastatin Calcium (Lipitor) 80 mg PO HS [facility] Last Admin: 12/07/18 21:28 Dose: 80 mg Azithromycin (Zithromax) 250 mg PO DAILY [facility]; Protocol Stop: 12/10/18 09:01 Last Admin: 12/08/18 08:05 Dose: 250 mg Dextrose (Dextrose 50% Inj) 0 ml IV STAT PRN; Protocol PRN Reason: Hypoglycemia Protocol Dextrose (Glutose 15) 0 gm PO ONCE PRN; Protocol PRN Reason: Hypoglycemia Protocol Dextrose (Dextrose 50% Inj) 0 ml IV STAT PRN; Protocol PRN Reason: Hypoglycemia Protocol Dextrose (Glutose 15) 0 gm PO ONCE PRN; Protocol PRN Reason: Hypoglycemia Protocol Dipyridamole/Aspirin (Aggrenox 25-200 Mg) 1 ea PO BID [facility] Last Admin: 12/08/18 08:02 Dose: 1 ea Gabapentin (Neurontin) 300 mg PO BID [facility] Last Admin: 12/08/18 08:04 Dose: 300 mg Glucagon (Glucagen Diagnostic Kit) 0 mg IM STAT PRN; Protocol PRN Reason: Hypoglycemia Protocol Glucagon (Glucagen Diagnostic Kit) 0 mg IM STAT PRN; Protocol PRN Reason: Hypoglycemia Protocol Insulin Human Lispro (Humalog) 0 units SC ACHS [facility]; Protocol Last Admin: 12/08/18 06:46 Dose: Not Given Insulin Lispro Protam/Lispro Human (Humalog Mix 75/25) 20 units SC DIN [facility] Last Admin: 12/07/18 17:18 Dose: 20 units Insulin Lispro Protam/Lispro Human (Humalog Mix 75/25) 25 units SC BRK [facility] Last Admin: 12/08/18 08:04 Dose: 25 units Pregabalin (Lyrica) 50 mg PO BID [facility] Last Admin: 12/08/18 08:07 Dose: 50 mg - Labs Labs: 12/07/18 05:30 12/07/18 05:30 - Constitutional Appears: Non-toxic - Head Exam Head Exam: NORMAL INSPECTION - Eye Exam Eye Exam: Normal appearance - ENT Exam ENT Exam: Mucous Membranes Moist - Neck Exam Neck Exam: Full ROM - Respiratory Exam Respiratory Exam: NORMAL BREATHING PATTERN - Cardiovascular Exam Cardiovascular Exam: REGULAR RHYTHM - GI/Abdominal Exam GI & Abdominal Exam: Normal Bowel Sounds - Rectal Exam Rectal Exam: Deferred - Extremities Exam Extremities Exam: absent: Pedal Edema - Back Exam Back Exam: NORMAL INSPECTION - Neurological Exam Neurological Exam: Alert Neuro motor strength exam: Right Upper Extremity: 3, Right Lower Extremity: 3 - Psychiatric Exam Psychiatric exam: Normal Affect - Skin Skin Exam: Normal Color Assessment and Plan (1) PAF (paroxysmal atrial fibrillation) Assessment & Plan: remains in sinus rhythm. maintian amiodarone. not on anticoagulation at this time. Status: Acute (2) PAD (peripheral artery disease) Status: Acute (3) Ischemic stroke Status: Acute
[2018-12-09] MEDS: Insulin Lispro (humaLOG) 100 Units/ml Inj SC SCH ×4 (06:32→22:14)
--- NOTE | 2018-12-09 08:25 | PN ---
DATE: 12/08/2018 SUBJECTIVE: The patient was seen and examined. Interim events noted. The patient remains in acute rehab unit. The patient denies any specific complaint. No chest pain or shortness of breath. PHYSICAL EXAMINATION: GENERAL: The patient is in no acute distress. VITAL SIGNS: Stable. HEART: S1 and S2. Normal and regular. LUNGS: Good bilateral air exchange. ABDOMEN: Soft and nontender. EXTREMITIES: No edema. No calf swelling. No tenderness. No acute ischemia. CENTRAL NERVOUS SYSTEM: Essentially unchanged and the patient remains with right-sided hemiparesis. DIAGNOSTIC DATA: Available diagnostic data reviewed. ASSESSMENT AND PLAN: Overall, the patient is clinically stable. Plan as ordered. Husam Rocha MD
--- NOTE | 2018-12-09 08:53 | CARD ---
APPROVED REPORT Date of service: 12/09/2018 EKG Measurement Heart [id number] <Conclusion> Sinus rhythm with frequent premature ventricular complexes Left anterior fascicular block Minimal voltage criteria for LVH, may be normal variant Nonspecific ST and T wave abnormality Abnormal ECG
[2018-12-09] MEDS: Aspirin-Dipyridamole 200-25 mg ER Cap PO SCH ×2 (09:13→18:48)
[2018-12-09] MEDS: Insulin Lispro Mix 75/25 100 units/ml (HumaLog) 10ml SC SCH ×2 (09:19→16:14)
--- NOTE | 2018-12-09 13:20 | CP.PCM.PN ---
Subjective - Date & Time of Evaluation Date of Evaluation: 12/09/18 Time of Evaluation: 13:18 - Subjective Subjective: Neuro Follow-Up Note: Mr. Zhang was evaluated this afternoon in the acute rehab. He is doing well and offers no concerns other than a mild headache (approx 3/10). He is doing well with PT. He is frustrated that his right arm is still weak despite doing therapy. Otherwise, ROS is unremarkable. Objective - Vital Signs/Intake and Output Vital Signs (last 24 hours): Temp Pulse Resp BP Pulse Ox 98.2 F 84 17 121/70 99 12/09/18 09:49 12/09/18 11:40 12/09/18 09:49 12/09/18 09:49 12/09/18 11:40 - Medications Medications: Current Medications Amiodarone HCl (Cordarone) 200 mg PO DAILY [facility] Last Admin: 12/09/18 09:13 Dose: 200 mg Atorvastatin Calcium (Lipitor) 80 mg PO HS [facility] Last Admin: 12/08/18 21:02 Dose: 80 mg Azithromycin (Zithromax) 250 mg PO DAILY [facility]; Protocol Stop: 12/10/18 09:01 Last Admin: 12/09/18 09:13 Dose: 250 mg Dextrose (Dextrose 50% Inj) 0 ml IV STAT PRN; Protocol PRN Reason: Hypoglycemia Protocol Dextrose (Glutose 15) 0 gm PO ONCE PRN; Protocol PRN Reason: Hypoglycemia Protocol Dextrose (Dextrose 50% Inj) 0 ml IV STAT PRN; Protocol PRN Reason: Hypoglycemia Protocol Dextrose (Glutose 15) 0 gm PO ONCE PRN; Protocol PRN Reason: Hypoglycemia Protocol Dipyridamole/Aspirin (Aggrenox 25-200 Mg) 1 ea PO BID [facility] Last Admin: 12/09/18 09:13 Dose: 1 ea Gabapentin (Neurontin) 300 mg PO BID [facility] Last Admin: 12/09/18 09:13 Dose: 300 mg Glucagon (Glucagen Diagnostic Kit) 0 mg IM STAT PRN; Protocol PRN Reason: Hypoglycemia Protocol Glucagon (Glucagen Diagnostic Kit) 0 mg IM STAT PRN; Protocol PRN Reason: Hypoglycemia Protocol Insulin Human Lispro (Humalog) 0 units SC ACHS [facility]; Protocol Last Admin: 12/09/18 12:10 Dose: 1 units Insulin Lispro Protam/Lispro Human (Humalog Mix 75/25) 20 units SC DIN [facility] Last Admin: 12/08/18 17:06 Dose: 20 units Insulin Lispro Protam/Lispro Human (Humalog Mix 75/25) 25 units SC BRK [facility] Last Admin: 12/09/18 09:19 Dose: 25 units Pregabalin (Lyrica) 50 mg PO BID [facility] Last Admin: 12/09/18 09:12 Dose: 50 mg - Labs Labs: 12/07/18 05:30 12/07/18 05:30 - Constitutional Appears: Well, Non-toxic, No Acute Distress - Head Exam Head Exam: ATRAUMATIC, NORMAL INSPECTION, NORMOCEPHALIC - Eye Exam Eye Exam: EOMI, Normal appearance, PERRL Pupil Exam: NORMAL ACCOMODATION, PERRL Additional comments: slight left sided visual field deficit - ENT Exam ENT Exam: Mucous Membranes Moist - Neck Exam Neck Exam: Full ROM - Respiratory Exam Respiratory Exam: NORMAL BREATHING PATTERN - Extremities Exam Extremities Exam: absent: Full ROM Additional comments: RUE weakness, proximal 3/5, distal 0/5 (unable to cancer registry coordinator). - Neurological Exam Neurological Exam: Alert, Awake, CN II-XII Intact, Oriented x3 Neuro motor strength exam: Left Upper Extremity: 5 (distal 5/5), Right Upper Extremity: 3 (distal 0/5; unable to cancer registry coordinator), Left Lower Extremity: 5 (distal 5/5), Right Lower Extremity: 4 (distal 4/5) Additional comments: Speech clear, fluid Slight right facial droop noted RUE weakness with sensory deficit. + dysmetria on right; + pronator drift on right No sensory deficit to RLE, LLE, LUE No tremors or abnormal movements - Psychiatric Exam Psychiatric exam: Normal Affect, Normal Mood - Skin Skin Exam: Normal Color Assessment and Plan (1) Ischemic stroke Assessment & Plan: Imaging reviewed: -CT Head (12/08/18): No evidence of recent infarct or intracranial hemorrhage. Chronic areas of mild encephalomalacia in the occipital lobe regions suggesting chronic infarct. No hydrocephalus. Age related cerebral atrophy. This agrees with preliminary report. -Continue Aggrenox and Lipitor for secondary stroke prevention. -Cardio on board for h/o paroxysmal afib---was on Xarelto prior to admission---will defer the decision to restart AC to cardio. -Continue management of other medical issues and risk factor modification for secondary stroke prevention as well. -Continue PT. -Tylenol 650 mg PO Q6 hours prn h/a or pain (mild to moderate) -Notify neuro team of any acute changes to pt's condition. Karlene Harvey DNP, CHIEF OF SERVICE d/w Dr. Seay Status: Acute NIHSS Stroke Scale - Date/Time Evaluation Performed Date Performed: 12/09/18 Time Performed: 13:18 When Was NIHSS Performed: Re-evaluation - How Severe is the Stroke Level of Consciousness: 0=Alert LOC to Questions: 0=Both comments correct LOC to commands: 0=Obeys both correctly Best Gaze: 0=Normal Visual: 1=Partial hemianopia Facial: 1=Minor asymmetry Motor Arm - Left: 0=No drift Motor Arm - Right: 1=Drift noted before 10 sec Motor Leg - Left: 0=No drift Motor Leg - Right: 0=No drift Limb Ataxia: 0=Absent Sensory: 1=Mild to moderate loss Best Language: 0=No aphasia Dysarthia: 0=Normal articulation Extinction & Inattention (Neglect): 0=Normal, no object Score: 4
--- NOTE | 2018-12-09 14:34 | CP.PCM.PN ---
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 Some cognitive issues also perceived on examination as well Objective - Vital Signs/Intake and Output Vital Signs (last 24 hours): Temp Pulse Resp BP Pulse Ox 98.2 F 84 17 121/70 99 12/09/18 09:49 12/09/18 11:40 12/09/18 09:49 12/09/18 09:49 12/09/18 11:40 - Medications Medications: Current Medications Acetaminophen (Tylenol 325mg Tab) 650 mg PO Q6 PRN PRN Reason: Headache or mild/moderate pain Amiodarone HCl (Cordarone) 200 mg PO DAILY [facility] Last Admin: 12/09/18 09:13 Dose: 200 mg Atorvastatin Calcium (Lipitor) 80 mg PO HS [facility] Last Admin: 12/08/18 21:02 Dose: 80 mg Azithromycin (Zithromax) 250 mg PO DAILY [facility]; Protocol Stop: 12/10/18 09:01 Last Admin: 12/09/18 09:13 Dose: 250 mg Dextrose (Dextrose 50% Inj) 0 ml IV STAT PRN; Protocol PRN Reason: Hypoglycemia Protocol Dextrose (Glutose 15) 0 gm PO ONCE PRN; Protocol PRN Reason: Hypoglycemia Protocol Dextrose (Dextrose 50% Inj) 0 ml IV STAT PRN; Protocol PRN Reason: Hypoglycemia Protocol Dextrose (Glutose 15) 0 gm PO ONCE PRN; Protocol PRN Reason: Hypoglycemia Protocol Dipyridamole/Aspirin (Aggrenox 25-200 Mg) 1 ea PO BID [facility] Last Admin: 12/09/18 09:13 Dose: 1 ea Gabapentin (Neurontin) 300 mg PO BID [facility] Last Admin: 12/09/18 09:13 Dose: 300 mg Glucagon (Glucagen Diagnostic Kit) 0 mg IM STAT PRN; Protocol PRN Reason: Hypoglycemia Protocol Glucagon (Glucagen Diagnostic Kit) 0 mg IM STAT PRN; Protocol PRN Reason: Hypoglycemia Protocol Insulin Human Lispro (Humalog) 0 units SC ACHS [facility]; Protocol Last Admin: 12/09/18 12:10 Dose: 1 units Insulin Lispro Protam/Lispro Human (Humalog Mix 75/25) 20 units SC DIN [facility] Last Admin: 12/08/18 17:06 Dose: 20 units Insulin Lispro Protam/Lispro Human (Humalog Mix 75/25) 25 units SC BRK [facility] Last Admin: 12/09/18 09:19 Dose: 25 units Pregabalin (Lyrica) 50 mg PO BID [facility] Last Admin: 12/09/18 09:12 Dose: 50 mg - Labs Labs: 12/07/18 05:30 12/07/18 05:30 - Constitutional Appears: Non-toxic, No Acute Distress - Head Exam Head Exam: ATRAUMATIC, NORMAL INSPECTION, NORMOCEPHALIC - Eye Exam Eye Exam: EOMI - ENT Exam ENT Exam: Mucous Membranes Moist - Respiratory Exam Respiratory Exam: NORMAL BREATHING PATTERN - Cardiovascular Exam Cardiovascular Exam: REGULAR RHYTHM - GI/Abdominal Exam GI & Abdominal Exam: absent: Guarding - Extremities Exam Extremities Exam: absent: Calf Tenderness - Neurological Exam Neurological Exam: Alert Neuro motor strength exam: Left Upper Extremity: 5, Right Upper Extremity: 3, Left Lower Extremity: 5, Right Lower Extremity: 3 - Psychiatric Exam Psychiatric exam: Normal Affect, Normal Mood - Skin Skin Exam: Warm (right TMA) Assessment and Plan - Assessment and Plan (Free Text) Assessment: PT/OT to continue to help increase functional independence Team conference for d/c planning Pain: controlled Vascular: no evidence of DVT GI: No evidence of constipation or diarrhea Patient continues to be an excellent acute rehabilitation candidate and will have continued focused speech, PT, OT and recreational therapy to help facilitate a safe and appropriate d/c plan
--- NOTE | 2018-12-10 03:55 | PN ---
DATE: 12/09/2018 SUBJECTIVE: The patient seen and examined. Interim events noted. The patient remains in acute rehab unit doing physical therapy, feels okay, denies any specific complaint. No chest pain. No shortness of breath. PHYSICAL EXAMINATION: GENERAL: The patient is in no acute distress. VITAL SIGNS: Stable. HEART: S1, S2 normal, regular. LUNGS: Good bilateral air exchange. ABDOMEN: Soft, nontender. EXTREMITIES: No edema. No calf swelling. No tenderness. No acute ischemia. CENTRAL NERVOUS SYSTEM: Essentially unchanged. The patient does have right hemiparesis. DIAGNOSTIC DATA: Available diagnostic data reviewed. Accu-Chek is 173. ASSESSMENT AND PLAN: Stemhole Borer and Neurology followup and intervention noted and appreciated. Overall, the patient is medically stable. EKG showed normal sinus rhythm with occasional PVCs. Plan as ordered. Husam Rocha MD
[2018-12-10] MEDS: Insulin Lispro (humaLOG) 100 Units/ml Inj SC SCH ×4 (07:50→21:14)
[2018-12-10] MEDS: Aspirin-Dipyridamole 200-25 mg ER Cap PO SCH ×2 (08:37→16:29)
[2018-12-10] MEDS: Insulin Lispro Mix 75/25 100 units/ml (HumaLog) 10ml SC SCH ×2 (08:39→16:34)
--- NOTE | 2018-12-10 13:09 | PCM.PSYTMC ---
Acute Rehab Team Conference - - Vital Signs: Vital Signs (Last 8 Hours): Vital Signs 12/10/18 12/10/18 12/10/18 07:34 08:15 08:38 Temperature 97.2 F L 97.2 F L Pulse Rate 80 80 Respiratory 20 Rate Blood Pressure 139/71 139/71 O2 Sat by Pulse 96 Oximetry 12/10/18 12/10/18 09:00 09:15 Temperature 97.2 F L 97.2 F L Pulse Rate 80 80 Respiratory 20 20 Rate Blood Pressure 139/71 139/71 O2 Sat by Pulse Oximetry Pain: 0 - Precautions: Precautions: Fall Prevention, Cardiac/Pulmonary - Medications/Other Issues: Comment: To ff-up w/ Dr. Armstrong if Xarelto can be resume for AFib - Consults: Comment: Dr. Gracy Armstrong Cardiology. Dr. Renteria Neurologist - Skin: Incision Site: N/A - Toileting: Toileting: Maximal Assistance - Bladder Management: Bladder Pattern: Normal Voiding Method: Toilet, Urinal Bladder Management: Moderate Assistance - Transfers: Transfers: Moderate Assistance - ADL's: ADL's: Moderate Assistance - Pain Management: Other Intervention:: Tylenol 650 mg every 6 hrs for headache - Patient/Family Teaching: Other Intervention:: Safe transfer. Medication. S/S of hypo and hypergylcemia. S/S of Stroke - Goals/Time Frame: Comment: Next Team Rehab Conference - Provider: Registered Nurse:: Liliana Salguero Physical Therapy - Bed Mobility Bed Mobility: Verbal Cues, Minimal Assistance Comment: vc for sequencing, attn to task, safety and reorientation. - Transfers Wheelchair to Mat: Verbal Cues, Minimal Assistance Sit to Stand: Verbal Cues, Minimal Assistance Comment: vc for sequencing, attn to task, safety and reorientation. Greatest vc needed for hand placement during t/f laurie RUE - Ambulation Level of Assistance: Verbal Cues, Minimal Assistance Distance (ft.): 125 Assistive Devices: Narrow base quad cane Comment: 1st bout - 12' w/ L wall bar CG/min A. improved quality of gait noted compared to PT IE on 12/07/18. Initiated NBQC amb - 15' x1, 100' x 2, 125' x 1. Pt performs 2 point gait without cueing. vc for upright posture, safety, to incr awareness to R side of environment. difficulty negotiating turns and close quarters, narrow LEO, unsteady. decr'd push off R foot - Stair Negotiation Stairs: Level of Assistance: Verbal Cues, Moderate Assistance Number of Stairs: 4 Handrails: Bilateral Comment: 4-6 in steps, min A x1 w/ SBA x1 and mod/max A to advance RUE along HR. vc/tc for sequencing, to incr LEO during task, step to pattern. greater difficulty advancing RUE along HR than advancing RLE on steps. to incr awareness to R side of environment, laurie RUE - Standing Balance Static Stand: Minimal Assistance Comment: w/ NBQC - Pain Pain (assessed during therapy session): 0 Comment: c/o intermittent chronic RUE pain, denied during session - Insight/Carryover Insight/Carryover: Fair - Patient/Family Education Comment: DME, fxnl mob, pain mgmt, reorientation, CVA recovery related topics, DBE, posture, PT goals, POC, safety - Assessment/Plan Assessment: 77 yo male admitted to [facility] acute rehab unit s/p CVA. Pt is AO x1, pleasantly confused and displays decr'd insight into deficits as well as decr'd awareness to the right side of the environment, laurie RUE. Pt requires min/mod A for all ambulatory activities. Cont'd skilled acute rehab PT recommended to maximize fxnl mob, balance and safety. - Goals Timeframe: 3 weeks Goals: Pt will ambulate 300 ft with SPC and close S. Pt will negotiate flight of stairs with handrail and supervision. sit < > stand transfers close S with SPC. sit < > supine close S - Provider Physical Therapist:: Tierney Castellano License Number:: [id number] Occupational Therapy - Arousal/Attention/Orientation Level of Consciousness: Awake, Alert Patient Orientation: Person, Place, Time - ADL/IADL Self Feeding: Supervision, Verbal Cues, Set-up Help Grooming: Verbal Cues, Set-up Help, Minimal Assistance, Moderate Assistance Dressing-Upper Ext: Verbal Cues, Set-up Help, Minimal Assistance Dressing-Lower Ext: Verbal Cues, Maximum Assistance Comment: Bathing to be assessed. - Sitting Balance Static Sitting: Contact Guard Assist Dynamic Sitting: Reaches across midline, Reaches out of base of support, Reaches within base of support, Minimal Assistance Comment: Seated in w/c w/o support. - Transfers Wheelchair to Bed Transfers: Verbal Cues, Set-up Help, Moderate Assistance Toilet Transfers: Verbal Cues, Set-up Help, Moderate Assistance Comment: Shower transfer to be assesed. - Wheelchair Management Level of Assistance: Maximum Assistance Distance (ft.): 20 - Upper Extremity Status Right Upper Extremity Comment: PROM is WFL. AROM is impaired. RUE shoulder flexion and abduction is 3/5. RUE elbow flexion and extension 3/5. RUE forearm and pronation 1/5. RUE wrist/flexion 2-/5 Left Upper Extremity Comment: WFL AROM and PROM - Pain Pain (assessed during therapy session): 0 Comment: No pain on 12/09/18. - Insight/Carryover Insight/Carryover: Fair - Patient/Family Education Comment: -Ongoing training for ADLs, transfers, and functional mobility, RUE hemitechniques, ROM. -educated on rehab OT goals and POC, energy consevation techniques, safety techniques, RUE attention, use of call fox. -patient needs ongoing training for above, - Assessment/Plan Assessment: Patient participated in 90 min. OT session focusing on ADL participation, improving RUE strength, and improving functional activity tolerance. Patient requires frequent rest breaks secondary to decreased functional activity tolerance. Patient able to perform upper body dressing with min. assistance, shaving face with moderate assistance, and lower body dressing tasks with max. assistance secondary to right side weakness. Patient demonstrated improved right shoulder and elbow AROM since eval. Patient performed wrist flexion and extension in against gravity plane in order to increase wrist strength. Patient requires min. verbal cues for safety awareness. Patient will continue to benefit from skiled OT services in order to maximize independence in ADLs, transfers, and mobility, RUE strength and coordination. - Goals Timeframe: 8 days Comment: -Feeding: I/set up. -Grooming: S/set up. -Upper body dressing: S/set up w/ cues. -Lower body dressig: min. assistance w/ cues. -Toileting: min. assistance w/ cues. -Dynamic sitting balance: S w/ cues. -RUE strength: 3+/5 in right shoulder/elbow, 3-/5 forearm, wrist, and hand in order to improve performance in ADLs. -Functional transfers: min. 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 Pt with impaired insight into these deficits. He would benefit f rom skilled speech tx for improved cognition and safety. Plan: Continue Speech/Language Therapy Frequency: 3-5 times per week Duration: 1 week Goals/Timeframe: Please see IE completed 12/09/18 for complete goals/POC Recommendations: Speech tx 3-5x/week - Provider Therapist: Judi Saenz License Number: [id number] Recreational Therapy - Participation Participation: Monitors His/Her Own Leisure Time - Attendance Attendance: 3-5 times per week - Activities Leisure Activities: Cards and Games - Socialization Level of Socialization: Initiates/interacts freely with care givers and peer - Diversional Time Diversional Time: watching sports - Assessment Assessment/Plan: Pt is agreeable to participate in recreation therapy sessions. Pt was oriented to benefits and purpose of participating in sessions throughout stay on unit. Pt required mod A to complete connect four task 2' decrease carryover of task rules and decrease problem solving strategies. Pt presents with decrease insight of deficits and safety awareness. Pt will benefit from participating in recreation therapy sessions to improve motor control, direction following, attention to task, and overall activity tolerance level. Problems Currently Limiting Participation: R UE weakness, decrease insight of deficits, impaired safety insight, decrease leisure awareness level Goals and Time Frame: Pt will tolerate participating in 30 minutes of recreation therapy sessions with min A to improve command following by date of discharge. - Provider Therapist: Georgina Delarosa Nutrition - Current Diet Current Diet/Supplement/Feedings: Moderate consistent CHO Heart healthy diet - Appetite Percent Meal Consumed: 75-100% - Assessment/Goals/Time Frame Assessments/Goals/Time Frame: Pt at high nutritional risk. goals: 1) Pt to consume at least 75% meals without GI upset or s/s aspiration x 5 days. 2) Pt to have glucose controlled 80-180mg/dL x 5. Follow-up due on 12/12/2018 - Provider Provider: Raquel Rios Case Management - Psychosocial Assessment Support Systems: Sherine Trivedi (spouse) - [phone] Psychological Interventions/Needs: Patient is awake, alert, and pleasantly confused. Patient is able to verbalize and make needs known. Discharge Concerns: Patient's PLOF was independent and pt's reports for attends her own treatment during the say. Patient/Family Meeting: CM met with patient and rehab team. Intervention/Goal/Outcome: 1. Goal: 24 hr supervision/care 2. Plan: [facility] vs home with VNS pending progress 3. discuss DME needs 4. f/u appts 5. caregiver training with daughter? 6. discuss discharge planning options with family 7. continued emotional support - Discharge Plan Discharge Plan: Subacute care - Provider Provider: Heidi Lemus License Number: [id number] Rehabilitation Plan - Treatment Plan Treatment Plan: Physical Therapy, Occupational Therapy, Speech, Dietary, Patient/Family Education - Discharge Plan Estimated Date of Discharge: 12/22/18 Discharge to: Subacute
--- NOTE | 2018-12-10 13:54 | CP.PCM.PN ---
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 Some cognitive issues also perceived on examination as well. Objective - Vital Signs/Intake and Output Vital Signs (last 24 hours): Temp Pulse Resp BP Pulse Ox 97.2 F L 80 20 139/71 96 12/10/18 09:15 12/10/18 09:15 12/10/18 09:15 12/10/18 09:15 12/10/18 07:34 - Medications Medications: Current Medications Acetaminophen (Tylenol 325mg Tab) 650 mg PO Q6 PRN PRN Reason: Headache Amiodarone HCl (Cordarone) 200 mg PO DAILY [facility] Last Admin: 12/10/18 08:38 Dose: 200 mg Atorvastatin Calcium (Lipitor) 80 mg PO HS [facility] Last Admin: 12/09/18 21:26 Dose: 80 mg Dextrose (Dextrose 50% Inj) 0 ml IV STAT PRN; Protocol PRN Reason: Hypoglycemia Protocol Dextrose (Glutose 15) 0 gm PO ONCE PRN; Protocol PRN Reason: Hypoglycemia Protocol Dextrose (Dextrose 50% Inj) 0 ml IV STAT PRN; Protocol PRN Reason: Hypoglycemia Protocol Dextrose (Glutose 15) 0 gm PO ONCE PRN; Protocol PRN Reason: Hypoglycemia Protocol Dipyridamole/Aspirin (Aggrenox 25-200 Mg) 1 ea PO BID [facility] Last Admin: 12/10/18 08:37 Dose: 1 ea Gabapentin (Neurontin) 300 mg PO BID [facility] Last Admin: 12/10/18 08:37 Dose: 300 mg Glucagon (Glucagen Diagnostic Kit) 0 mg IM STAT PRN; Protocol PRN Reason: Hypoglycemia Protocol Glucagon (Glucagen Diagnostic Kit) 0 mg IM STAT PRN; Protocol PRN Reason: Hypoglycemia Protocol Insulin Human Lispro (Humalog) 0 units SC ACHS [facility]; Protocol Last Admin: 12/10/18 12:09 Dose: 2 units Insulin Lispro Protam/Lispro Human (Humalog Mix 75/25) 20 units SC DIN [facility] Last Admin: 12/09/18 16:14 Dose: 20 units Insulin Lispro Protam/Lispro Human (Humalog Mix 75/25) 25 units SC BRK [facility] Last Admin: 12/10/18 08:39 Dose: 25 units Pregabalin (Lyrica) 50 mg PO BID [facility] Last Admin: 12/10/18 08:41 Dose: 50 mg - Labs Labs: 12/07/18 05:30 12/07/18 05:30 - Constitutional Appears: Non-toxic, No Acute Distress - Head Exam Head Exam: ATRAUMATIC, NORMAL INSPECTION - Eye Exam Eye Exam: EOMI - ENT Exam ENT Exam: Mucous Membranes Moist - Respiratory Exam Respiratory Exam: NORMAL BREATHING PATTERN - GI/Abdominal Exam GI & Abdominal Exam: absent: Distended, Guarding - Extremities Exam Extremities Exam: absent: Calf Tenderness - Neurological Exam Neurological Exam: Alert - Skin Skin Exam: Warm Assessment and Plan - Assessment and Plan (Free Text) Assessment: PT/OT to continue to help increase functional independence. + cognitive issues with poor carryover and awareness Team conference for d/c planning Pain: controlled Vascular: no evidence of DVT GI: No evidence of constipation or diarrhea Patient continues to be an excellent acute rehabilitation candidate and will have continued focused speech, PT, OT and recreational therapy to help faci litate a safe and appropriate d/c plan The patients plan was discussed in great detail in team conference. This was then discussed with the patient at length. The discussions directly impact on the patients plan of care. Please see the note for more details
[2018-12-11] MEDS: Insulin Lispro (humaLOG) 100 Units/ml Inj SC SCH ×4 (07:31→21:31)
[2018-12-11] MEDS: Insulin Lispro Mix 75/25 100 units/ml (HumaLog) 10ml SC SCH ×2 (08:02→17:01)
[2018-12-11] MEDS: Aspirin-Dipyridamole 200-25 mg ER Cap PO SCH ×2 (08:04→16:16)
--- NOTE | 2018-12-11 08:31 | CP.PCM.PN ---
<Napoleon Salmon - Last Filed: 12/11/18 11:20> Subjective - Date & Time of Evaluation Date of Evaluation: 12/11/18 Time of Evaluation: 07:00 - Subjective Subjective: 77 y/o M was seen and examined by bedside with dr Rocha. Pt reports feeling well, able to complete physical therapy sessions. Lower back pain improving. Pt is afe brile, tolerating PO with NO acute events overnight. Pt denies headache, dizziness, chest pain, SOB, N/D/D. Objective - Vital Signs/Intake and Output Vital Signs (last 24 hours): Temp Pulse Resp BP Pulse Ox 97.9 F 75 18 132/57 L 98 12/11/18 07:26 12/11/18 08:03 12/11/18 07:26 12/11/18 08:03 12/11/18 07:26 - Medications Medications: Current Medications Acetaminophen (Tylenol 325mg Tab) 650 mg PO Q6 PRN PRN Reason: Headache Amiodarone HCl (Cordarone) 200 mg PO DAILY [facility] Last Admin: 12/11/18 08:03 Dose: 200 mg Atorvastatin Calcium (Lipitor) 80 mg PO HS [facility] Last Admin: 12/10/18 21:13 Dose: 80 mg Dextrose (Dextrose 50% Inj) 0 ml IV STAT PRN; Protocol PRN Reason: Hypoglycemia Protocol Dextrose (Glutose 15) 0 gm PO ONCE PRN; Protocol PRN Reason: Hypoglycemia Protocol Dextrose (Dextrose 50% Inj) 0 ml IV STAT PRN; Protocol PRN Reason: Hypoglycemia Protocol Dextrose (Glutose 15) 0 gm PO ONCE PRN; Protocol PRN Reason: Hypoglycemia Protocol Dipyridamole/Aspirin (Aggrenox 25-200 Mg) 1 ea PO BID [facility] Last Admin: 12/11/18 08:04 Dose: 1 ea Gabapentin (Neurontin) 300 mg PO BID [facility] Last Admin: 12/11/18 08:03 Dose: 300 mg Glucagon (Glucagen Diagnostic Kit) 0 mg IM STAT PRN; Protocol PRN Reason: Hypoglycemia Protocol Glucagon (Glucagen Diagnostic Kit) 0 mg IM STAT PRN; Protocol PRN Reason: Hypoglycemia Protocol Insulin Human Lispro (Humalog) [address] [facility]; Protocol Last Admin: 12/11/18 07:31 Dose: Not Given Insulin Lispro Protam/Lispro Human (Humalog Mix 75/25) 20 units SC DIN [facility] Last Admin: 12/10/18 16:34 Dose: 20 units Insulin Lispro Protam/Lispro Human (Humalog Mix 75/25) 25 units SC BRK [facility] Last Admin: 12/11/18 08:02 Dose: 25 units Pregabalin (Lyrica) 50 mg PO BID [facility] Last Admin: 12/11/18 08:02 Dose: 50 mg - Labs Labs: 12/07/18 05:30 12/07/18 05:30 - Constitutional Appears: No Acute Distress - Head Exam Head Exam: ATRAUMATIC, NORMAL INSPECTION - Eye Exam Eye Exam: EOMI, Normal appearance, PERRL - ENT Exam ENT Exam: Mucous Membranes Moist - Neck Exam Neck Exam: Full ROM, Normal Inspection. absent: Meningismus - Respiratory Exam Respiratory Exam: Clear to Ausculation Bilateral, NORMAL BREATHING PATTERN - Cardiovascular Exam Cardiovascular Exam: REGULAR RHYTHM, +S1, +S2 - GI/Abdominal Exam GI & Abdominal Exam: Soft, Normal Bowel Sounds. absent: Distended, Firm, Guarding, Rigid, Tenderness - Extremities Exam Extremities Exam: absent: Calf Tenderness, Pedal Edema - Neurological Exam Neurological Exam: Alert, Awake, Oriented x3 Assessment and Plan - Assessment and Plan (Free Text) Assessment: 77 year old Male with a PMHx of CAD, DM and CVA admitted to acute rehabilitation unit due to RUE and RLE weakness s/p CVA, [place] [facility] [place]AN: >Right sided weakness --Stable, afebrile --Continue physical therapy --Neurology on board, Dr Renteria. --Physiatry on board. --Continue management as ordered. >IDDM --Continue with home medications --insulin sliding scale and hypoglycemia protocol. >CAD --Continue home medications >DVT Prophylaxis --On Aggrenox. --SCD's Case discussed with Dr Josefina Salmon PGY-2 <Husam Rocha - Last Filed: 12/11/18 12:23> Objective - Vital Signs/Intake and Output Vital Signs (last 24 hours): Temp Pulse Resp BP Pulse Ox 97.9 F 82 18 132/57 L 98 12/11/18 07:26 12/11/18 08:32 12/11/18 07:26 12/11/18 08:03 12/11/18 08:32 - Medications Medications: Current Medications Acetaminophen (Tylenol 325mg Tab) 650 mg PO Q6 PRN PRN Reason: Headache Amiodarone HCl (Cordarone) 200 mg PO DAILY [facility] Last Admin: 12/11/18 08:03 Dose: 200 mg Atorvastatin Calcium (Lipitor) 80 mg PO HS [facility] Last Admin: 12/10/18 21:13 Dose: 80 mg Dextrose (Dextrose 50% Inj) 0 ml IV STAT PRN; Protocol PRN Reason: Hypoglycemia Protocol Dextrose (Glutose 15) 0 gm PO ONCE PRN; Protocol PRN Reason: Hypoglycemia Protocol Dextrose (Dextrose 50% Inj) 0 ml IV STAT PRN; Protocol PRN Reason: Hypoglycemia Protocol Dextrose (Glutose 15) 0 gm PO ONCE PRN; Protocol PRN Reason: Hypoglycemia Protocol Dipyridamole/Aspirin (Aggrenox 25-200 Mg) 1 ea PO BID [facility] Last Admin: 12/11/18 08:04 Dose: 1 ea Gabapentin (Neurontin) 300 mg PO BID [facility] Last Admin: 12/11/18 08:03 Dose: 300 mg Glucagon (Glucagen Diagnostic Kit) 0 mg IM STAT PRN; Protocol PRN Reason: Hypoglycemia Protocol Glucagon (Glucagen Diagnostic Kit) 0 mg IM STAT PRN; Protocol PRN Reason: Hypoglycemia Protocol Insulin Human Lispro (Humalog) 0 units SC ACHS [facility]; Protocol Last Admin: 12/11/18 11:32 Dose: 3 units Insulin Lispro Protam/Lispro Human (Humalog Mix 75/25) 25 units SC BRK [facility] Last Admin: 12/11/18 08:02 Dose: 25 units Insulin Lispro Protam/Lispro Human (Humalog Mix 75/25) 15 units SC DIN [facility] Pregabalin (Lyrica) 50 mg PO BID [facility] Last Admin: 12/11/18 08:02 Dose: 50 mg - Labs Labs: 12/07/18 05:30 12/07/18 05:30 Assessment and Plan - Assessment and Plan (Free Text) Assessment: Patient was personally seen and examined by me in rounds with residents. Available labs and diagnostic data reviewed. Case, Patient's condition and management plan discussed with residents in rounds. Agree with resident's progress note. Plan: As ordered.
--- NOTE | 2018-12-11 18:00 | CP.PCM.PN ---
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 Some cognitive issues also perceived on examination as well. Objective - Vital Signs/Intake and Output Vital Signs (last 24 hours): Temp Pulse Resp BP Pulse Ox 97.9 F 82 18 132/57 L 98 12/11/18 07:26 12/11/18 08:32 12/11/18 07:26 12/11/18 08:03 12/11/18 08:32 - Medications Medications: Current Medications Acetaminophen (Tylenol 325mg Tab) 650 mg PO Q6 PRN PRN Reason: Headache Amiodarone HCl (Cordarone) 200 mg PO DAILY [facility] Last Admin: 12/11/18 08:03 Dose: 200 mg Atorvastatin Calcium (Lipitor) 80 mg PO HS [facility] Last Admin: 12/10/18 21:13 Dose: 80 mg Dextrose (Dextrose 50% Inj) 0 ml IV STAT PRN; Protocol PRN Reason: Hypoglycemia Protocol Dextrose (Glutose 15) 0 gm PO ONCE PRN; Protocol PRN Reason: Hypoglycemia Protocol Dextrose (Dextrose 50% Inj) 0 ml IV STAT PRN; Protocol PRN Reason: Hypoglycemia Protocol Dextrose (Glutose 15) 0 gm PO ONCE PRN; Protocol PRN Reason: Hypoglycemia Protocol Dipyridamole/Aspirin (Aggrenox 25-200 Mg) 1 ea PO BID [facility] Last Admin: 12/11/18 16:16 Dose: 1 ea Gabapentin (Neurontin) 300 mg PO BID [facility] Last Admin: 12/11/18 16:16 Dose: 300 mg Glucagon (Glucagen Diagnostic Kit) 0 mg IM STAT PRN; Protocol PRN Reason: Hypoglycemia Protocol Glucagon (Glucagen Diagnostic Kit) 0 mg IM STAT PRN; Protocol PRN Reason: Hypoglycemia Protocol Insulin Human Lispro (Humalog) 0 units SC ACHS [facility]; Protocol Last Admin: 12/11/18 17:01 Dose: 1 units Insulin Lispro Protam/Lispro Human (Humalog Mix 75/25) 25 units SC BRK [facility] Last Admin: 12/11/18 08:02 Dose: 25 units Insulin Lispro Protam/Lispro Human (Humalog Mix 75/25) 15 units SC DIN [facility] Last Admin: 12/11/18 17:01 Dose: 15 units Pregabalin (Lyrica) 50 mg PO BID [facility] Last Admin: 12/11/18 16:15 Dose: 50 mg Rivaroxaban (Xarelto) 20 mg PO DAILY [facility]; Protocol Last Admin: 12/11/18 14:00 Dose: 20 mg - Labs Labs: 12/07/18 05:30 12/07/18 05:30 - Constitutional Appears: Non-toxic, No Acute Distress - Head Exam Head Exam: ATRAUMATIC, NORMAL INSPECTION - Eye Exam Eye Exam: EOMI - ENT Exam ENT Exam: Mucous Membranes Moist - Respiratory Exam Respiratory Exam: NORMAL BREATHING PATTERN - GI/Abdominal Exam GI & Abdominal Exam: absent: Distended, Guarding - Extremities Exam Extremities Exam: absent: Calf Tenderness - Neurological Exam Neurological Exam: Alert - Psychiatric Exam Psychiatric exam: Normal Affect, Normal Mood - Skin Skin Exam: Warm Assessment and Plan - Assessment and Plan (Free Text) Assessment: PT/OT to continue to help increase functional independence Team conference for d/c planning Pain: controlled Vascular: no evidence of DVT GI: No evidence of constipation or diarrhea Patient continues to be an excellent acute rehabilitation candidate and will have continued focused speech, PT, OT and recreational therapy to help facilitate a safe and appropriate d/c plan
[2018-12-11] MEDS ORDERED: Insulin Lispro (humaLOG) 100 Units/ml Inj SC ONE (21:10)
[2018-12-12] MEDS: Insulin Lispro (humaLOG) 100 Units/ml Inj SC SCH ×4 (07:49→21:15)
[2018-12-12] MEDS: Aspirin-Dipyridamole 200-25 mg ER Cap PO SCH ×2 (08:05→17:13)
--- NOTE | 2018-12-12 08:21 | CP.PCM.PN ---
<Napoleon Salmon - Last Filed: 12/12/18 08:17> Subjective - Date & Time of Evaluation Date of Evaluation: 12/12/18 Time of Evaluation: 07:20 - Subjective Subjective: 77 y/o M was seen and examined by bedside with Dr Rocha. Pt reports feeling well. 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 Pt afebrile, tolerating PO with NO acute events overnight. BP noted to be elevated. Serum glucose elevated last afternoon. Objective - Vital Signs/Intake and Output Vital Signs (last 24 hours): Temp Pulse Resp BP Pulse Ox 97.5 F L 71 18 144/73 100 12/12/18 07:55 12/12/18 08:06 12/12/18 07:55 12/12/18 08:06 12/12/18 07:55 - Medications Medications: Current Medications Acetaminophen (Tylenol 325mg Tab) 650 mg PO Q6 PRN PRN Reason: Headache Amiodarone HCl (Cordarone) 200 mg PO DAILY [facility] Last Admin: 12/12/18 08:06 Dose: 200 mg Atorvastatin Calcium (Lipitor) 80 mg PO HS [facility] Last Admin: 12/11/18 21:38 Dose: 80 mg Dextrose (Dextrose 50% Inj) 0 ml IV STAT PRN; Protocol PRN Reason: Hypoglycemia Protocol Dextrose (Glutose 15) 0 gm PO ONCE PRN; Protocol PRN Reason: Hypoglycemia Protocol Dextrose (Dextrose 50% Inj) 0 ml IV STAT PRN; Protocol PRN Reason: Hypoglycemia Protocol Dextrose (Glutose 15) 0 gm PO ONCE PRN; Protocol PRN Reason: Hypoglycemia Protocol Dipyridamole/Aspirin (Aggrenox 25-200 Mg) 1 ea PO BID [facility] Last Admin: 12/12/18 08:05 Dose: 1 ea Gabapentin (Neurontin) 300 mg PO BID [facility] Last Admin: 12/12/18 08:06 Dose: 300 mg Glucagon (Glucagen Diagnostic Kit) 0 mg IM STAT PRN; Protocol PRN Reason: Hypoglycemia Protocol Glucagon (Glucagen Diagnostic Kit) 0 mg IM STAT PRN; Protocol PRN Reason: Hypoglycemia Protocol Insulin Human Lispro (Humalog) 0 units SC [facility]; Protocol Last Admin: 12/12/18 07:49 Dose: Not Given Insulin Lispro Protam/Lispro Human (Humalog Mix 75/25) 25 units SC BRK [facility] Last Admin: 12/11/18 08:02 Dose: 25 units Insulin Lispro Protam/Lispro Human (Humalog Mix 75/25) 15 units SC DIN [facility] Last Admin: 12/11/18 17:01 Dose: 15 units Pregabalin (Lyrica) 50 mg PO BID [facility] Last Admin: 12/12/18 08:06 Dose: 50 mg Ramipril (Altace) 2.5 mg PO DAILY [facility] Rivaroxaban (Xarelto) 20 mg PO DAILY [facility]; Protocol Last Admin: 12/12/18 08:06 Dose: 20 mg - Labs Labs: 12/07/18 05:30 12/07/18 05:30 - Constitutional Appears: Well, No Acute Distress - Head Exam Head Exam: ATRAUMATIC, NORMAL INSPECTION, NORMOCEPHALIC - Eye Exam Eye Exam: EOMI, Normal appearance - ENT Exam ENT Exam: Mucous Membranes Moist - Neck Exam Neck Exam: Full ROM. absent: Lymphadenopathy, Meningismus, Normal Inspection - Respiratory Exam Respiratory Exam: Clear to Ausculation Bilateral, NORMAL BREATHING PATTERN - Cardiovascular Exam Cardiovascular Exam: +S1, +S2 - GI/Abdominal Exam GI & Abdominal Exam: Soft. absent: Distended, Firm, Guarding, Tenderness - Extremities Exam Extremities Exam: absent: Calf Tenderness, Pedal Edema Additional comments: R upper extremity strength decreased but improved as per patient. - Neurological Exam Neurological Exam: Alert, Awake Assessment and Plan - Assessment and Plan (Free Text) Assessment: 77 year old Male with a PMHx of CAD, DM and CVA admitted to acute rehabilitation unit due to RUE and RLE weakness s/p CVA, [place] [facility] [place]AN: >Right sided weakness --Stable, afebrile --Continue physical therapy --Neurology on board, Dr Renteria. --Physiatry on board. --Continue management as ordered. >HTN --BP noted to be elevated. --Initiate Ramipril 2.5mg PO daily. >Paroxysmal AFib --Xarelto re-initiated as recommended by cardiology after neurology cleared. --On Amiodarone. >IDDM --Continue with home medications --Hyperglycemia yesterday, insulin therapy modified. --Insulin sliding scale and hypoglycemia protocol. >CAD --Continue home medications >DVT Prophylaxis --On Aggrenox and Xarelto. --SCD's <Husam Rocha - Last Filed: 12/15/18 11:37> Objective - Vital Signs/Intake and Output Vital Signs (last 24 hours): Temp Pulse Resp BP Pulse Ox 96.6 F L 64 20 153/56 H 95 12/15/18 07:37 12/15/18 08:15 12/15/18 07:37 12/15/18 08:15 12/15/18 07:37 - Medications Medications: Current Medications Acetaminophen (Tylenol 325mg Tab) 650 mg PO Q6 PRN PRN Reason: Headache Last Admin: 12/15/18 09:09 Dose: 650 mg Amiodarone HCl (Cordarone) 200 mg PO DAILY [facility] Last Admin: 12/15/18 08:15 Dose: 200 mg Atorvastatin Calcium (Lipitor) 80 mg PO HS [facility] Last Admin: 12/14/18 21:22 Dose: 80 mg Dextrose (Dextrose 50% Inj) 0 ml IV STAT PRN; Protocol PRN Reason: Hypoglycemia Protocol Dextrose (Glutose 15) 0 gm PO ONCE PRN; Protocol PRN Reason: Hypoglycemia Protocol Dextrose (Dextrose 50% Inj) 0 ml IV STAT PRN; Protocol PRN Reason: Hypoglycemia Protocol Dextrose (Glutose 15) 0 gm PO ONCE PRN; Protocol PRN Reason: Hypoglycemia Protocol Dipyridamole/Aspirin (Aggrenox 25-200 Mg) 1 ea PO BID [facility] Last Admin: 12/15/18 08:15 Dose: 1 ea Gabapentin (Neurontin) 300 mg PO BID [facility] Last Admin: 12/15/18 08:15 Dose: 300 mg Glucagon (Glucagen Diagnostic Kit) 0 mg IM STAT PRN; Protocol PRN Reason: Hypoglycemia Protocol Glucagon (Glucagen Diagnostic Kit) 0 mg IM STAT PRN; Protocol PRN Reason: Hypoglycemia Protocol Insulin Human Lispro (Humalog) 0 units SC ACHS [facility]; Protocol Last Admin: 12/15/18 07:39 Dose: 1 units Insulin Lispro Protam/Lispro Human (Humalog Mix 75/25) 25 units SC BRK [facility] Last Admin: 12/15/18 08:19 Dose: 25 units Insulin Lispro Protam/Lispro Human (Humalog Mix 75/25) 15 units SC DIN [facility] Last Admin: 12/14/18 16:44 Dose: 15 units Pregabalin (Lyrica) 50 mg PO BID [facility] Last Admin: 12/15/18 08:16 Dose: 50 mg Ramipril (Altace) 2.5 mg PO DAILY [facility] Last Admin: 12/14/18 08:05 Dose: 2.5 mg Rivaroxaban (Xarelto) 20 mg PO DAILY [facility]; Protocol Last Admin: 12/15/18 08:14 Dose: 20 mg - Labs Labs: 12/07/18 05:30 12/07/18 05:30 Assessment and Plan - Assessment and Plan (Free Text) Assessment: Patient was personally seen and examined by me in rounds with residents. Available labs and diagnostic data reviewed. Case, Patient's condition and management plan discussed with residents in rounds. Agree with resident's progress note. Plan: As ordered.
[2018-12-12] MEDS: Insulin Lispro Mix 75/25 100 units/ml (HumaLog) 10ml SC SCH ×2 (08:51→17:16)
[2018-12-13] MEDS: Insulin Lispro (humaLOG) 100 Units/ml Inj SC SCH ×4 (06:45→21:44)
[2018-12-13] MEDS: Aspirin-Dipyridamole 200-25 mg ER Cap PO SCH ×2 (08:12→16:40)
[2018-12-13] MEDS: Insulin Lispro Mix 75/25 100 units/ml (HumaLog) 10ml SC SCH ×2 (08:13→16:44)
--- NOTE | 2018-12-13 09:18 | CP.PCM.PN ---
<Napoleon Salmon - Last Filed: 12/13/18 09:14> Subjective - Date & Time of Evaluation Date of Evaluation: 12/13/18 Time of Evaluation: 07:10 - Subjective Subjective: 77 y/o M was seen and examined by bedside with Dr Rocha. Pt reports feeling well, performing speech and physical therapy. Pt afebrile, tolerating PO with NO acute events overnight. Objective - Vital Signs/Intake and Output Vital Signs (last 24 hours): Temp Pulse Resp BP Pulse Ox 97.7 F 70 18 130/60 98 12/13/18 08:22 12/13/18 08:22 12/13/18 08:22 12/13/18 08:22 12/13/18 08:22 - Medications Medications: Current Medications Acetaminophen (Tylenol 325mg Tab) 650 mg PO Q6 PRN PRN Reason: Headache Amiodarone HCl (Cordarone) 200 mg PO DAILY [facility] Last Admin: 12/13/18 08:12 Dose: 200 mg Atorvastatin Calcium (Lipitor) 80 mg PO HS [facility] Last Admin: 12/12/18 21:15 Dose: 80 mg Dextrose (Dextrose 50% Inj) 0 ml IV STAT PRN; Protocol PRN Reason: Hypoglycemia Protocol Dextrose (Glutose 15) 0 gm PO ONCE PRN; Protocol PRN Reason: Hypoglycemia Protocol Dextrose (Dextrose 50% Inj) 0 ml IV STAT PRN; Protocol PRN Reason: Hypoglycemia Protocol Dextrose (Glutose 15) 0 gm PO ONCE PRN; Protocol PRN Reason: Hypoglycemia Protocol Dipyridamole/Aspirin (Aggrenox 25-200 Mg) 1 ea PO BID [facility] Last Admin: 12/13/18 08:12 Dose: 1 ea Gabapentin (Neurontin) 300 mg PO BID [facility] Last Admin: 12/13/18 08:14 Dose: 300 mg Glucagon (Glucagen Diagnostic Kit) 0 mg IM STAT PRN; Protocol PRN Reason: Hypoglycemia Protocol Glucagon (Glucagen Diagnostic Kit) 0 mg IM STAT PRN; Protocol PRN Reason: Hypoglycemia Protocol Insulin Human Lispro (Humalog) 0 units SC [facility]; Protocol Last Admin: 12/13/18 06:45 Dose: Not Given Insulin Lispro Protam/Lispro Human (Humalog Mix 75/25) 25 units SC BRK [facility] Last Admin: 12/13/18 08:13 Dose: 25 units Insulin Lispro Protam/Lispro Human (Humalog Mix 75/25) 15 units SC DIN [facility] Last Admin: 12/12/18 17:16 Dose: 15 units Pregabalin (Lyrica) 50 mg PO BID [facility] Last Admin: 12/13/18 09:01 Dose: 50 mg Ramipril (Altace) 2.5 mg PO DAILY [facility] Last Admin: 12/13/18 08:14 Dose: 2.5 mg Rivaroxaban (Xarelto) 20 mg PO DAILY [facility]; Protocol Last Admin: 12/13/18 08:14 Dose: 20 mg - Labs Labs: 12/07/18 05:30 12/07/18 05:30 - Additional Findings Additional findings: - Constitutional Appears: Well, No Acute Distress - Head Exam Head Exam: ATRAUMATIC, NORMAL INSPECTION, NORMOCEPHALIC - Eye Exam Eye Exam: EOMI, Normal appearance - ENT Exam ENT Exam: Mucous Membranes Moist - Neck Exam Neck Exam: Full ROM. absent: Lymphadenopathy, Meningismus, Normal Inspection - Respiratory Exam Respiratory Exam: Clear to Ausculation Bilateral, NORMAL BREATHING PATTERN - Cardiovascular Exam Cardiovascular Exam: +S1, +S2 - GI/Abdominal Exam GI & Abdominal Exam: Soft. absent: Distended, Firm, Guarding, Tenderness - Extremities Exam Extremities Exam: absent: Calf Tenderness, Pedal Edema Additional comments: R upper extremity strength decreased, 3/5. - Neurological Exam Neurological Exam: Alert, Awake Assessment and Plan - Assessment and Plan (Free Text) Assessment: 77 year old Male with a PMHx of CAD, DM and CVA admitted to acute rehabilitation unit due to RUE and RLE weakness s/p CVA, transferred from [facility] PLAN: >Right sided weakness --Stable, afebrile --Continue physical therapy --Neurology on board, Dr Renteria. --Physiatry on board. --Continue management as ordered. >HTN --BP better controlled after initiating Ramipril 2.5mg PO daily. >Paroxysmal AFib --On Amiodarone, Aggrenox and Xarelto >IDDM --Continue with home medications --Insulin sliding scale and hypoglycemia protocol. >CAD --Continue home medications >DVT Prophylaxis --On Aggrenox and Xarelto. --SCD's <Husam Rocha K - Last Filed: 12/15/18 11:36> Objective - Vital Signs/Intake and Output Vital Signs (last 24 hours): Temp Pulse Resp BP Pulse Ox 96.6 F L 64 20 153/56 H 95 12/15/18 07:37 12/15/18 08:15 12/15/18 07:37 12/15/18 08:15 12/15/18 07:37 - Medications Medications: Current Medications Acetaminophen (Tylenol 325mg Tab) 650 mg PO Q6 PRN PRN Reason: Headache Last Admin: 12/15/18 09:09 Dose: 650 mg Amiodarone HCl (Cordarone) 200 mg PO DAILY [facility] Last Admin: 12/15/18 08:15 Dose: 200 mg Atorvastatin Calcium (Lipitor) 80 mg PO HS [facility] Last Admin: 12/14/18 21:22 Dose: 80 mg Dextrose (Dextrose 50% Inj) 0 ml IV STAT PRN; Protocol PRN Reason: Hypoglycemia Protocol Dextrose (Glutose 15) 0 gm PO ONCE PRN; Protocol PRN Reason: Hypoglycemia Protocol Dextrose (Dextrose 50% Inj) 0 ml IV STAT PRN; Protocol PRN Reason: Hypoglycemia Protocol Dextrose (Glutose 15) 0 gm PO ONCE PRN; Protocol PRN Reason: Hypoglycemia Protocol Dipyridamole/Aspirin (Aggrenox 25-200 Mg) 1 ea PO BID [facility] Last Admin: 12/15/18 08:15 Dose: 1 ea Gabapentin (Neurontin) 300 mg PO BID [facility] Last Admin: 12/15/18 08:15 Dose: 300 mg Glucagon (Glucagen Diagnostic Kit) 0 mg IM STAT PRN; Protocol PRN Reason: Hypoglycemia Protocol Glucagon (Glucagen Diagnostic Kit) 0 mg IM STAT PRN; Protocol PRN Reason: Hypoglycemia Protocol Insulin Human Lispro (Humalog) 0 units SC A[facility]S [facility]; Protocol Last Admin: 12/15/18 07:39 Dose: 1 units Insulin Lispro Protam/Lispro Human (Humalog Mix 75/25) 25 units SC BRK [facility] Last Admin: 12/15/18 08:19 Dose: 25 units Insulin Lispro Protam/Lispro Human (Humalog Mix 75/25) 15 units SC DIN [facility] Last Admin: 12/14/18 16:44 Dose: 15 units Pregabalin (Lyrica) 50 mg PO BID [facility] Last Admin: 12/15/18 08:16 Dose: 50 mg Ramipril (Altace) 2.5 mg PO DAILY [facility] Last Admin: 12/14/18 08:05 Dose: 2.5 mg Rivaroxaban (Xarelto) 20 mg PO DAILY [facility]; Protocol Last Admin: 12/15/18 08:14 Dose: 20 mg - Labs Labs: 12/07/18 05:30 12/07/18 05:30 Assessment and Plan - Assessment and Plan (Free Text) Assessment: Patient was personally seen and examined by me in rounds with residents. Available labs and diagnostic data reviewed. Case, Patient's condition and management plan discussed with residents in rounds. Agree with resident's progress note. Plan: As ordered.
--- NOTE | 2018-12-13 14:48 | CP.PCM.PN ---
Subjective - Date & Time of Evaluation Date of Evaluation: 12/13/18 Time of Evaluation: 14:47 - Subjective Subjective: Patient seen in OT, making progress and in spite of reduced insight he is working hard no sob/cp continue current Objective - Vital Signs/Intake and Output Vital Signs (last 24 hours): Temp Pulse Resp BP Pulse Ox 97.7 F 80 18 130/60 100 12/13/18 08:22 12/13/18 08:37 12/13/18 08:22 12/13/18 08:22 12/13/18 08:37 - Medications Medications: Current Medications Acetaminophen (Tylenol 325mg Tab) 650 mg PO Q6 PRN PRN Reason: Headache Amiodarone HCl (Cordarone) 200 mg PO DAILY [facility] Last Admin: 12/13/18 08:12 Dose: 200 mg Atorvastatin Calcium (Lipitor) 80 mg PO HS [facility] Last Admin: 12/12/18 21:15 Dose: 80 mg Dextrose (Dextrose 50% Inj) 0 ml IV STAT PRN; Protocol PRN Reason: Hypoglycemia Protocol Dextrose (Glutose 15) 0 gm PO ONCE PRN; Protocol PRN Reason: Hypoglycemia Protocol Dextrose (Dextrose 50% Inj) 0 ml IV STAT PRN; Protocol PRN Reason: Hypoglycemia Protocol Dextrose (Glutose 15) 0 gm PO ONCE PRN; Protocol PRN Reason: Hypoglycemia Protocol Dipyridamole/Aspirin (Aggrenox 25-200 Mg) 1 ea PO BID [facility] Last Admin: 12/13/18 08:12 Dose: 1 ea Gabapentin (Neurontin) 300 mg PO BID [facility] Last Admin: 12/13/18 08:14 Dose: 300 mg Glucagon (Glucagen Diagnostic Kit) 0 mg IM STAT PRN; Protocol PRN Reason: Hypoglycemia Protocol Glucagon (Glucagen Diagnostic Kit) 0 mg IM STAT PRN; Protocol PRN Reason: Hypoglycemia Protocol Insulin Human Lispro (Humalog) 0 units SC ACHS [facility]; Protocol Last Admin: 12/13/18 11:30 Dose: 4 units Insulin Lispro Protam/Lispro Human (Humalog Mix 75/25) 25 units SC BRK [facility] Last Admin: 12/13/18 08:13 Dose: 25 units Insulin Lispro Protam/Lispro Human (Humalog Mix 75/25) 15 units SC DIN [facility] Last Admin: 12/12/18 17:16 Dose: 15 units Pregabalin (Lyrica) 50 mg PO BID [facility] Last Admin: 12/13/18 09:01 Dose: 50 mg Ramipril (Altace) 2.5 mg PO DAILY [facility] Last Admin: 12/13/18 08:14 Dose: 2.5 mg Rivaroxaban (Xarelto) 20 mg PO DAILY [facility]; Protocol Last Admin: 12/13/18 08:14 Dose: 20 mg - Labs Labs: 12/07/18 05:30 12/07/18 05:30
[2018-12-14] MEDS: Insulin Lispro (humaLOG) 100 Units/ml Inj SC SCH ×4 (07:05→21:23)
[2018-12-14] MEDS: Aspirin-Dipyridamole 200-25 mg ER Cap PO SCH ×2 (08:03→16:43)
[2018-12-14] MEDS: Insulin Lispro Mix 75/25 100 units/ml (HumaLog) 10ml SC SCH ×2 (08:04→16:44)
--- NOTE | 2018-12-14 11:05 | PN ---
DATE: 12/14/2018 SUBJECTIVE: The patient seen and examined. Interim events noted. Physiatry intervention noted and appreciated. The patient remains in acute rehab unit. Awake, responsive, feels okay, denies any specific complaint. No specific issue reported by nursing staff. PHYSICAL EXAMINATION: GENERAL: The patient is in no acute distress. VITAL SIGNS: Stable. HEART: S1, S2 normal, regular. LUNGS: Good bilateral air exchange. ABDOMEN: Soft, nontender. EXTREMITIES: No edema. No calf swelling. No tenderness. No acute ischemia. CENTRAL NERVOUS SYSTEM: Essentially unchanged. DIAGNOSTIC DATA: Available diagnostic data reviewed. ASSESSMENT AND PLAN: Overall, the patient's general medical condition is stable. Plan as ordered. Husam Rocha MD
[2018-12-15] MEDS: Insulin Lispro (humaLOG) 100 Units/ml Inj SC SCH ×4 (07:39→21:32)
[2018-12-15] MEDS: Aspirin-Dipyridamole 200-25 mg ER Cap PO SCH ×2 (08:15→16:34)
[2018-12-15] MEDS: Insulin Lispro Mix 75/25 100 units/ml (HumaLog) 10ml SC SCH ×2 (08:19→16:36)
--- NOTE | 2018-12-15 11:22 | PN ---
DATE: 12/15/2018 SUBJECTIVE: The patient seen and examined. Interim events noted. The patient remains in acute rehab unit. Awake, responsive, and feels okay. Denies any chest pain. No shortness of breath. Seems to have . PHYSICAL EXAMINATION: GENERAL: The patient is in no acute distress. VITAL SIGNS: Stable. HEART: S1, S2 normal, regular. LUNGS: Good bilateral air exchange. ABDOMEN: Soft, nontender. EXTREMITIES: No edema. No calf swelling. No tenderness. No acute ischemia. CENTRAL NERVOUS SYSTEM: Essentially unchanged. The patient still has persistent right hemiparesis. DIAGNOSTIC DATA: Available diagnostic data reviewed. ASSESSMENT AND PLAN: Overall, the patient's general medical condition is stable. Plan as ordered. Husam Rocha MD
[2018-12-16] MEDS: Insulin Lispro (humaLOG) 100 Units/ml Inj SC SCH ×4 (07:19→21:29)
[2018-12-16] MEDS: Aspirin-Dipyridamole 200-25 mg ER Cap PO SCH ×2 (08:13→16:52)
[2018-12-16] MEDS: Insulin Lispro Mix 75/25 100 units/ml (HumaLog) 10ml SC SCH ×2 (08:16→16:53)
--- NOTE | 2018-12-16 10:13 | PN ---
DATE: 12/16/2018 SUBJECTIVE: The patient seen and examined. Interim events noted. The patient remains in acute rehab unit. . Feels okay. Denies any chest pain. No shortness of breath. Does complain of allergy. PHYSICAL EXAMINATION: GENERAL: The patient is in no acute distress. VITAL SIGNS: Stable. HEART: S1, S2 normal, regular. LUNGS: Good bilateral air exchange. ABDOMEN: Soft, nontender. EXTREMITIES: No edema. No calf swelling. No tenderness. No acute ischemia. CENTRAL NERVOUS SYSTEM: Essentially unchanged. DIAGNOSTIC DATA: Available diagnostic data reviewed. ASSESSMENT AND PLAN: Blood pressure is slightly high. Overall, the patient is clinically stable. Plan as ordered. Husam Rocha MD
--- NOTE | 2018-12-16 10:14 | PN ---
DATE: 12/16/2018 SUBJECTIVE: The patient seen and examined. Interim events noted. The patient remains in acute rehab unit. Awake, responsive, and feels okay. Denies any specific complaint. No chest pain. No shortness of breath. PHYSICAL EXAMINATION: GENERAL: The patient is in no acute distress. VITAL SIGNS: Stable. HEART: S1, S2 normal, regular. LUNGS: Good bilateral air exchange. ABDOMEN: Soft, nontender. EXTREMITIES: No edema. No calf swelling. No tenderness. No acute ischemia. CENTRAL NERVOUS SYSTEM: Essentially unchanged and the patient remains with hemiparesis on right side. DIAGNOSTIC DATA: Available diagnostic data reviewed. ASSESSMENT AND PLAN: Overall, the patient is medically stable. Blood pressure is slightly elevated. Plan as ordered. Husam Rocha MD
--- NOTE | 2018-12-16 15:22 | CARD ---
APPROVED REPORT Date of service: 12/16/2018 EKG Measurement Heart [id number] <Conclusion> Sinus rhythm with occasional premature ventricular complexes Left axis deviation T wave abnormality, consider anterolateral ischemia Prolonged QT Abnormal ECG
--- NOTE | 2018-12-16 18:01 | CP.PCM.PN ---
Subjective - Date & Time of Evaluation Date of Evaluation: 12/16/18 Time of Evaluation: 18:01 - Subjective Subjective: Patient seen in the room doing ok still poor insight and little conversation set for d/c 12/22/18 continue current care Objective - Vital Signs/Intake and Output Vital Signs (last 24 hours): Temp Pulse Resp BP Pulse Ox 97.7 F 75 18 114/41 L 100 12/16/18 12:41 12/16/18 16:08 12/16/18 12:41 12/16/18 12:41 12/16/18 16:08 - Medications Medications: Current Medications Acetaminophen (Tylenol 325mg Tab) 650 mg PO Q6 PRN PRN Reason: Headache Last Admin: 12/15/18 09:09 Dose: 650 mg Acetaminophen (Tylenol 325mg Tab) 650 mg PO Q6 PRN PRN Reason: pain level 4-10 Last Admin: 12/16/18 11:41 Dose: 650 mg Amiodarone HCl (Cordarone) 200 mg PO DAILY [facility] Last Admin: 12/16/18 08:13 Dose: 200 mg Atorvastatin Calcium (Lipitor) 80 mg PO HS [facility] Last Admin: 12/15/18 21:31 Dose: 80 mg Dextrose (Dextrose 50% Inj) 0 ml IV STAT PRN; Protocol PRN Reason: Hypoglycemia Protocol Dextrose (Glutose 15) 0 gm PO ONCE PRN; Protocol PRN Reason: Hypoglycemia Protocol Dextrose (Dextrose 50% Inj) 0 ml IV STAT PRN; Protocol PRN Reason: Hypoglycemia Protocol Dextrose (Glutose 15) 0 gm PO ONCE PRN; Protocol PRN Reason: Hypoglycemia Protocol Dipyridamole/Aspirin (Aggrenox 25-200 Mg) 1 ea PO BID [facility] Last Admin: 12/16/18 16:52 Dose: 1 ea Gabapentin (Neurontin) 300 mg PO BID [facility] Last Admin: 12/16/18 16:53 Dose: 300 mg Glucagon (Glucagen Diagnostic Kit) 0 mg IM STAT PRN; Protocol PRN Reason: Hypoglycemia Protocol Glucagon (Glucagen Diagnostic Kit) 0 mg IM STAT PRN; Protocol PRN Reason: Hypoglycemia Protocol Insulin Human Lispro (Humalog) 0 units SC ACHS [facility]; Protocol Last Admin: 12/16/18 16:52 Dose: 1 units Insulin Lispro Protam/Lispro Human (Humalog Mix 75/25) 25 units SC BRK [facility] Last Admin: 12/16/18 08:16 Dose: 25 units Insulin Lispro Protam/Lispro Human (Humalog Mix 75/25) 15 units SC DIN [facility] Last Admin: 12/16/18 16:53 Dose: 15 units Pregabalin (Lyrica) 50 mg PO BID [facility] Last Admin: 12/16/18 16:50 Dose: 50 mg Ramipril (Altace) 5 mg PO DAILY [facility] Last Admin: 12/16/18 08:14 Dose: 5 mg Rivaroxaban (Xarelto) 20 mg PO DAILY [facility]; Protocol Last Admin: 12/16/18 08:15 Dose: 20 mg - Labs Labs: 12/07/18 05:30 12/07/18 05:30
--- NOTE | 2018-12-16 18:28 | CP.PCM.PN ---
Subjective - Date & Time of Evaluation Date of Evaluation: 12/16/18 Time of Evaluation: 18:28 - Subjective Subjective: ASKED TO SEE PT BY DR STANLEY FOR CARDIOLOGY COVERAGE. PT WITH LOWER LEFT SIDED CP TODAY X 1 EPISODE. PAIN OCCURRED WHEN PT UNDERGOING PHYSICAL THERAPY. PAIN IS NOT REPRODUCIBLE, DESCRIBED 7/10 AT WORST, NONRADIATING, NOT ASSOC WITH SOB, PALP, DIAPHORESIS, N/V. PAIN LASTED 5 MIN AND RESOLVED ON OWN. PT WAS GIVEN TYLENOL. EKG REVEALS AFIB RATE CONTROLLED WITH LAT ST ABN WHEN COMPARED WITH PRIOR EKGS. TROP X 1 NEG AT TIME OF CONSULT. PT WITHOUT HX OF CAD. HE HAS A HX OF PVI. ST DONE OUTPT ABOUT 1 YEAR AGO WAS NEGATIVE FOR ISCHEMIA. Objective - Vital Signs/Intake and Output Vital Signs (last 24 hours): Temp Pulse Resp BP Pulse Ox 97.7 F 75 18 114/41 L 100 12/16/18 12:41 12/16/18 16:08 12/16/18 12:41 12/16/18 12:41 12/16/18 16:08 - Medications Medications: Current Medications Acetaminophen (Tylenol 325mg Tab) 650 mg PO Q6 PRN PRN Reason: Headache Last Admin: 12/15/18 09:09 Dose: 650 mg Acetaminophen (Tylenol 325mg Tab) 650 mg PO Q6 PRN PRN Reason: pain level 4-10 Last Admin: 12/16/18 11:41 Dose: 650 mg Amiodarone HCl (Cordarone) 200 mg PO DAILY [facility] Last Admin: 12/16/18 08:13 Dose: 200 mg Atorvastatin Calcium (Lipitor) 80 mg PO HS [facility] Last Admin: 12/15/18 21:31 Dose: 80 mg Dextrose (Dextrose 50% Inj) 0 ml IV STAT PRN; Protocol PRN Reason: Hypoglycemia Protocol Dextrose (Glutose 15) 0 gm PO ONCE PRN; Protocol PRN Reason: Hypoglycemia Protocol Dextrose (Dextrose 50% Inj) 0 ml IV STAT PRN; Protocol PRN Reason: Hypoglycemia Protocol Dextrose (Glutose 15) 0 gm PO ONCE PRN; Protocol PRN Reason: Hypoglycemia Protocol Dipyridamole/Aspirin (Aggrenox 25-200 Mg) 1 ea PO BID [facility] Last Admin: 12/16/18 16:52 Dose: 1 ea Gabapentin (Neurontin) 300 mg PO BID [facility] Last Admin: 12/16/18 16:53 Dose: 300 mg Glucagon (Glucagen Diagnostic Kit) 0 mg IM STAT PRN; Protocol PRN Reason: Hypoglycemia Protocol Glucagon (Glucagen Diagnostic Kit) 0 mg IM STAT PRN; Protocol PRN Reason: Hypoglycemia Protocol Insulin Human Lispro (Humalog) 0 units SC ACHS [facility]; Protocol Last Admin: 12/16/18 16:52 Dose: 1 units Insulin Lispro Protam/Lispro Human (Humalog Mix 75/25) 25 units SC BRK [facility] Last Admin: 12/16/18 08:16 Dose: 25 units Insulin Lispro Protam/Lispro Human (Humalog Mix 75/25) 15 units SC DIN [facility] Last Admin: 12/16/18 16:53 Dose: 15 units Pregabalin (Lyrica) 50 mg PO BID [facility] Last Admin: 12/16/18 16:50 Dose: 50 mg Ramipril (Altace) 5 mg PO DAILY [facility] Last Admin: 12/16/18 08:14 Dose: 5 mg Rivaroxaban (Xarelto) 20 mg PO DAILY [facility]; Protocol Last Admin: 12/16/18 08:15 Dose: 20 mg - Labs Labs: 12/07/18 05:30 12/07/18 05:30 - Constitutional Appears: Non-toxic - Head Exam Head Exam: ATRAUMATIC, NORMAL INSPECTION, NORMOCEPHALIC - Eye Exam Eye Exam: EOMI, Normal appearance, PERRL. absent: Conjunctival injection, Nystagmus, Periorbital swelling, Periorbital tenderness, Scleral icterus Pupil Exam: NORMAL ACCOMODATION, PERRL - ENT Exam ENT Exam: Mucous Membranes Moist, Normal Exam. absent: Mucous Membranes Dry, Normal External Ear Exam, Normal Oropharynx, TM's Normal Bilaterally - Neck Exam Neck Exam: Full ROM, Normal Inspection. absent: Lymphadenopathy, Meningismus, Tenderness, Thyromegaly - Respiratory Exam Respiratory Exam: Clear to Ausculation Bilateral, NORMAL BREATHING PATTERN. absent: Accessory Muscle Use, Chest Wall Tenderness, Decreased Breath Sounds, Prolonged Expiratory Phase, Rales, Rhonchi, Wheezes, Respiratory Distress, Stridor - Cardiovascular Exam Cardiovascular Exam: Irregular Rhythm, +S1, +S2, Murmur. absent: Bradycardia, Tachycardia, Clicks, Diastolic murmur, Gallop, REGULAR RHYTHM, JVD, RRR, Rubs, +S4 - GI/Abdominal Exam GI & Abdominal Exam: Soft, Normal Bowel Sounds. absent: Bruit, Distended, Firm, Guarding, Rigid, Tenderness, Diminished Bowel Sounds, Hernia, Hyperactive Bowel Sounds, Hypoactive Bowel Sounds, Organomegaly, Pulsatile Mass, Rebound, Mass - Rectal Exam Rectal Exam: Deferred - Extremities Exam Extremities Exam: Full ROM, Normal Capillary Refill, Normal Inspection. absent: Calf Tenderness, Joint Swelling, Pedal Edema, Tenderness - Back Exam Back Exam: NORMAL INSPECTION. absent: CVA tenderness (L), CVA tenderness (R), Full ROM, muscle spasm, paraspinal tenderness, rash noted, tenderness, vertebral tenderness - Neurological Exam Neurological Exam: Alert, Awake, Oriented x3 - Psychiatric Exam Psychiatric exam: Normal Affect, Normal Mood - Skin Skin Exam: Dry, Intact, Normal Color, Warm Assessment and Plan (1) Ischemic stroke Status: Acute (2) PAD (peripheral artery disease) Status: Acute (3) PAF (paroxysmal atrial fibrillation) Status: Acute (4) Chest pain Status: Acute - Assessment and Plan (Free Text) Plan: RULE OUT VT (AWAIT REPEAT TROP). IF PAIN RECURS THEN WOULD CONSIDER STRESS TESTING. CONT ANTI-PLT THERAPY. 55 MIN TOTAL CARE TIME
[2018-12-17 04:28] LABS: ALBUMIN 3.2 g/dL (3.5-5.0); ALT/SGPT 29 U/L (21-72); AST/SGOT 32 U/L (17-59); BLOOD UREA NITROGEN 30 mg/dl (9-20); CALCIUM 8.5 mg/dL (8.4-10.2); GFR NON-AFRICAN AMERICAN > 60
[2018-12-17 05:42] LABS: HEMOGLOBIN 10.8 g/dL (12.0-18.0); MEAN CELL VOLUME 80.7 fl (80.0-94.0); MEAN CORPUSCULAR HEMOGLOBIN 24.9 pg (27.0-31.0); MEAN CORPUSCULAR HGB CONC 30.9 g/dL (33.0-37.0); RBC 4.34 Mil/uL (4.40-5.90); RED CELL DISTRIBUTION WIDTH 28.8 % (11.5-14.5); WHITE BLOOD COUNT 4.4 K/uL (4.8-10.8)
[2018-12-17] MEDS: Insulin Lispro (humaLOG) 100 Units/ml Inj SC SCH ×4 (07:12→21:20)
[2018-12-17] MEDS: Insulin Lispro Mix 75/25 100 units/ml (HumaLog) 10ml SC SCH ×2 (08:29→16:23)
[2018-12-17] MEDS: Aspirin-Dipyridamole 200-25 mg ER Cap PO SCH ×2 (08:32→16:20)
--- NOTE | 2018-12-17 10:03 | CP.PCM.PN ---
<Napoleon Salmon - Last Filed: 12/17/18 10:00> Subjective - Date & Time of Evaluation Date of Evaluation: 12/17/18 Time of Evaluation: 07:10 - Subjective Subjective: 77 y/o M was seen and examined by bedside with Dr Rocha. Pt reports feeling well. Pt with good appetite, sitting by nurse station eating. Pt afebrile, tolerating PO with NO acute events overnight. Pt denies chest pain and SOB at this moment. --Troponin negative x3. Objective - Vital Signs/Intake and Output Vital Signs (last 24 hours): Temp Pulse Resp BP Pulse Ox 97.5 F L 92 H 21 137/71 97 12/17/18 08:18 12/17/18 08:43 12/17/18 08:18 12/17/18 08:34 12/17/18 08:18 - Medications Medications: Current Medications Acetaminophen (Tylenol 325mg Tab) 650 mg PO Q6 PRN PRN Reason: Headache Last Admin: 12/15/18 09:09 Dose: 650 mg Acetaminophen (Tylenol 325mg Tab) 650 mg PO Q6 PRN PRN Reason: pain level 4-10 Last Admin: 12/16/18 11:41 Dose: 650 mg Amiodarone HCl (Cordarone) 200 mg PO DAILY [facility] Last Admin: 12/17/18 08:34 Dose: 200 mg Atorvastatin Calcium (Lipitor) 80 mg PO HS [facility] Last Admin: 12/16/18 21:26 Dose: 80 mg Dextrose (Dextrose 50% Inj) 0 ml IV STAT PRN; Protocol PRN Reason: Hypoglycemia Protocol Dextrose (Glutose 15) 0 gm PO ONCE PRN; Protocol PRN Reason: Hypoglycemia Protocol Dextrose (Dextrose 50% Inj) 0 ml IV STAT PRN; Protocol PRN Reason: Hypoglycemia Protocol Dextrose (Glutose 15) 0 gm PO ONCE PRN; Protocol PRN Reason: Hypoglycemia Protocol Dipyridamole/Aspirin (Aggrenox 25-200 Mg) 1 ea PO BID [facility] Last Admin: 12/17/18 08:32 Dose: 1 ea Gabapentin (Neurontin) 300 mg PO BID [facility] Last Admin: 12/17/18 08:33 Dose: 300 mg Glucagon (Glucagen Diagnostic Kit) 0 mg IM STAT PRN; Protocol PRN Reason: Hypoglycemia Protocol Glucagon (Glucagen Diagnostic Kit) 0 mg IM STAT PRN; Protocol PRN Reason: Hypoglycemia Protocol Insulin Human Lispro (Humalog) 0 units SC ACHS [facility]; Protocol Last Admin: 12/17/18 07:12 Dose: Not Given Insulin Lispro Protam/Lispro Human (Humalog Mix 75/25) 25 units SC BRK [facility] Last Admin: 12/17/18 08:29 Dose: 25 units Insulin Lispro Protam/Lispro Human (Humalog Mix 75/25) 15 units SC DIN [facility] Last Admin: 12/16/18 16:53 Dose: 15 units Pregabalin (Lyrica) 50 mg PO BID [facility] Last Admin: 12/17/18 08:36 Dose: 50 mg Ramipril (Altace) 5 mg PO DAILY [facility] Last Admin: 12/17/18 08:32 Dose: 5 mg Rivaroxaban (Xarelto) 20 mg PO DAILY [facility]; Protocol Last Admin: 12/17/18 08:34 Dose: 20 mg - Labs Labs: 12/17/18 05:19 12/17/18 03:30 - Additional Findings Additional findings: - Constitutional Appears: Well, No Acute Distress - Head Exam Head Exam: ATRAUMATIC, NORMAL INSPECTION, NORMOCEPHALIC - Eye Exam Eye Exam: EOMI, Normal appearance - ENT Exam ENT Exam: Mucous Membranes Moist - Neck Exam Neck Exam: Full ROM. absent: Lymphadenopathy, Meningismus, Normal Inspection - Respiratory Exam Respiratory Exam: Clear to Ausculation Bilateral, NORMAL BREATHING PATTERN - Cardiovascular Exam Cardiovascular Exam: +S1, +S2 - GI/Abdominal Exam GI & Abdominal Exam: Soft. absent: Distended, Firm, Guarding, Tenderness - Extremities Exam Extremities Exam: absent: Calf Tenderness, Pedal Edema Additional comments: R upper extremity strength decreased, 3/5. - Neurological Exam Neurological Exam: Alert, Awake Assessment and Plan - Assessment and Plan (Free Text) Assessment: 77 year old Male with a PMHx of CAD, DM and CVA admitted to acute rehabilitation unit due to RUE and RLE weakness s/p CVA, [place] [facility] [place]AN: >Right sided weakness --Stable, afebrile --Continue physical therapy --Neurology on board, Dr Renteria. --Physiatry on board. --Continue management as ordered. >Chest pain --Improving --Troponin negative x3 --Cardiology on board, Dr Armstrong/Dr Salomon. --Cardiac stress test if chest pain recurs. >HTN --BP better controlled after initiating Ramipril 2.5mg PO daily. >Paroxysmal AFib --On Amiodarone, Aggrenox and Xarelto >IDDM --Continue with home medications --Insulin sliding scale and hypoglycemia protocol. >DVT Prophylaxis --On Aggrenox and Xarelto. --SCD's <Husam Rocha K - Last Filed: 12/19/18 08:44> Objective - Vital Signs/Intake and Output Vital Signs (last 24 hours): Temp Pulse Resp BP Pulse Ox 97.9 F 79 20 141/70 99 12/18/18 19:57 12/18/18 19:57 12/18/18 19:57 12/18/18 19:57 12/18/18 19:57 - Medications Medications: Current Medications Acetaminophen (Tylenol 325mg Tab) 650 mg PO Q6 PRN PRN Reason: Headache Last Admin: 12/15/18 09:09 Dose: 650 mg Acetaminophen (Tylenol 325mg Tab) 650 mg PO Q6 PRN PRN Reason: pain level 4-10 Last Admin: 12/19/18 01:12 Dose: 650 mg Amiodarone HCl (Cordarone) 200 mg PO DAILY [facility] Last Admin: 12/18/18 08:37 Dose: 200 mg Atorvastatin Calcium (Lipitor) 80 mg PO HS [facility] Last Admin: 12/18/18 21:01 Dose: 80 mg Dextrose (Dextrose 50% Inj) 0 ml IV STAT PRN; Protocol PRN Reason: Hypoglycemia Protocol Dextrose (Glutose 15) 0 gm PO ONCE PRN; Protocol PRN Reason: Hypoglycemia Protocol Dextrose (Dextrose 50% Inj) 0 ml IV STAT PRN; Protocol PRN Reason: Hypoglycemia Protocol Dextrose (Glutose 15) 0 gm PO ONCE PRN; Protocol PRN Reason: Hypoglycemia Protocol Dipyridamole/Aspirin (Aggrenox 25-200 Mg) 1 ea PO BID [facility] Last Admin: 12/18/18 17:16 Dose: 1 ea Gabapentin (Neurontin) 300 mg PO BID [facility] Last Admin: 12/17/18 16:20 Dose: 300 mg Glucagon (Glucagen Diagnostic Kit) 0 mg IM STAT PRN; Protocol PRN Reason: Hypoglycemia Protocol Glucagon (Glucagen Diagnostic Kit) 0 mg IM STAT PRN; Protocol PRN Reason: Hypoglycemia Protocol Insulin Human Lispro (Humalog) 0 units SC ACHS [facility]; Protocol Last Admin: 12/19/18 06:47 Dose: Not Given Insulin Lispro Protam/Lispro Human (Humalog Mix 75/25) 25 units SC BRK [facility] Last Admin: 12/18/18 08:38 Dose: 25 units Insulin Lispro Protam/Lispro Human (Humalog Mix 75/25) 15 units SC DIN [facility] Last Admin: 12/18/18 17:17 Dose: 15 units Pregabalin (Lyrica) 50 mg PO BID [facility] Last Admin: 12/18/18 17:15 Dose: 50 mg Ramipril (Altace) 5 mg PO DAILY [facility] Last Admin: 12/18/18 08:36 Dose: 5 mg Rivaroxaban (Xarelto) 20 mg PO DAILY [facility]; Protocol Last Admin: 12/18/18 08:37 Dose: 20 mg - Labs Labs: 12/17/18 05:19 12/17/18 03:30 Assessment and Plan - Assessment and Plan (Free Text) Assessment: Patient was personally seen and examined by me in rounds with residents. Available labs and diagnostic data reviewed. Case, Patient's condition and management plan discussed with residents in rounds. Agree with resident's progress note. Plan: As ordered.
--- NOTE | 2018-12-17 13:12 | PCM.PSYTMC ---
Acute Rehab Team Conference - - Vital Signs: Vital Signs (Last 8 Hours): Vital Signs 12/17/18 12/17/18 12/17/18 08:18 08:32 08:34 Temperature 97.5 F L Pulse Rate 86 86 Respiratory 21 Rate Blood Pressure 130/71 130/71 137/71 O2 Sat by Pulse 97 Oximetry 12/17/18 12/17/18 08:43 10:08 Temperature 97.5 F L Pulse Rate 92 H 86 Respiratory 21 Rate Blood Pressure 130/70 O2 Sat by Pulse Oximetry Pain: 0 - Precautions: Precautions: Fall Prevention, Cardiac/Pulmonary - Medications/Other Issues: Comment: had episode of chest pain yesterday. Troponins done # 1,2,3 are negative. EKG done and noted by Dr Umm ferraro for Dr Armstrong. no change in orders. Started on Xarelto 12/11/18 - Consults: Comment: Dr Armstrong-Cardiac. Dr Renteria-Neuro - Skin: Incision Site: N/A - Toileting: Toileting: Supervision - Bladder Management: Bladder Pattern: Normal Voiding Method: Toilet, Urinal Bladder Management: Supervision - Transfers: Transfers: Supervision - ADL's: ADL's: Minimal Assistance - Pain Management: Other Intervention:: No complains of pain. Reassess prn and every 8 hours - Patient/Family Teaching: Other Intervention:: Medication education and Management. Safety precautions on frequent monitoring with [employer]ays/staff rounding - Goals/Time Frame: Comment: Goal as per POC - Provider: Registered Nurse:: Myranda Maxwell Physical Therapy - Bed Mobility Bed Mobility: Verbal Cues, Contact Guard - Transfers Wheelchair to Mat: Verbal Cues, Minimal Assistance Sit to Stand: Verbal Cues, Contact Guard, Minimal Assistance - Ambulation Level of Assistance: Verbal Cues, Contact Guard Distance (ft.): 150 Assistive Devices: N/A - Stair Negotiation Stairs: Level of Assistance: Verbal Cues, Contact Guard Number of Stairs: 8 Handrails: Left Stairs: Assistive Devices: Left Handrail - Standing Balance Static Stand: Minimal Assistance Comment: w/ NBQC - Pain Pain (assessed during therapy session): 0 Comment: c/o intermittent chronic RUE pain, denied during session - Insight/Carryover Insight/Carryover: Fair - Patient/Family Education Comment: CVA recovery, safety, POC - Assessment/Plan Assessment: Pt participated in 90 minute PT tx session focusing on BLE strengtehning exercises, balance and endurance activities, and functional mobility. pt able to negotiate 8 stairs with one handrail and min A, ambualtes without Ad and CGA. Pt will continue to benefit from skilled PT interventions to address deficits, reduce fall risk, and maximize functional independence. Recommend 24 hour assistance/supervision for d/c home. - Goals Timeframe: 10 days Goals: sit < > supine mod I. Sit < > stand transfers with supervision. Pt will ambulate 1000 ft with superivsion. Pt will negotiate flight of stairs with supervision - Provider Physical Therapist:: Radha Stockton License Number:: [id number] Occupational Therapy - Arousal/Attention/Orientation Level of Consciousness: Awake, Alert Patient Orientation: Person, Place, Time Assessment Comment: Patient oriented to person, place, and time. - ADL/IADL Self Feeding: Supervision, Set-up Help Grooming: Verbal Cues, Set-up Help, Minimal Assistance Bathing-Upper Ext: Moderate Assistance Bathing-Lower Ext: Maximum Assistance Dressing-Upper Ext: Minimal Assistance Dressing-Lower Ext: Minimal Assistance Comment: Pt. able to perform UBD/LBD with min. assistance and hygiene and grooming tasks with S. - Sitting Balance Static Sitting: Supervision Dynamic Sitting: Reaches across midline, Reaches out of base of support, Reaches within base of support, Requires supervision Comment: Able to perform static an dynamic sitting balance activities w/ SUP. - Transfers Wheelchair to Bed Transfers: Verbal Cues, Contact Guard Toilet Transfers: Verbal Cues, Contact Guard Tub Transfers: Verbal Cues, Contact Guard Comment: Improved ability to transfer noted. - Wheelchair Management Level of Assistance: Moderate Assistance Distance (ft.): 20 - Upper Extremity Status Right Upper Extremity Comment: Improved shoulder flexion, and elbow flexion noted. Shoulder and elbow flexion 3+/5. Supination and pronation 3-/5. Wrist flexion and extension 2-/5. PROM WFL. Left Upper Extremity Comment: WFL - Pain Comment: No c/o pain. - Insight/Carryover Insight/Carryover: Fair - Patient/Family Education Comment: -Ongoing for ADL training, transfer training, mobility, and RUE exercises; patient continues to need ongoing training and education, ADL, transfers, RUE ROM exercises, balance and endurance training. -Caregiver educ ation to be initiated for safe transition home. - Assessment/Plan Assessment: Patient is progressing well in therapy. Patient able to complete UBD/LBD with min. assistance, toileting transfers and clothing management with CGA, and able to perform transfers with CGA. Patient will continue to benefit from skiled OT services in order to maximize independence in ADLs, transfers, and mobility, RUE strength and coordination.Will need 24 hour care and home care PT/OT. Reccommend 3in1 commode, tub transfer bench for bathroom safety. - Goals Timeframe: 7 days Comment: -Feeding: I./S. -Grooming: S./Set up. -Upper body dressing: S/set up w/ cues. -Lower body dressing: CGA/close supervision w/ cues. -Toileting: min. assistance w/ cues. -Dynamic sitting balance: distant SUP. -RUE strength: 4- /5 in right shoulder/elbow, 3/5 forearm, wrist, and hand in order to improve performance in ADLs. -Caregiver to be independent in assisting patient with self care, transfers, mobility, and IADLs. -Functional transfers: S. w/ verbal cues. [ End ] - Provider Occupational Therapist:: Srikanth Meade License Number: [id number] Speech Therapy - Consult Information Patient on Program: Yes Medical Diagnosis: CVA Treatment Diagnosis: Cognitive Communication Impairment - Assessment Problem Solving Impairment: Moderate Memory Impairment: Moderate - Plan Assessment: Mr Trivedi currently presents with a moderate-severe cognitive communicaiton impairment with deficits noted in the areas of orientation, attention, problem solving, and safety awareness. Poor carryover of strategies/activities noted. No dysphagia tx warranted. Plan: Continue Speech/Language Therapy Frequency: 3-5 times per week Duration: 1 week - Provider Therapist: Beth Buckner License Number: [id number] Recreational Therapy - Participation Participation: Participates in Individual and/or Group Sessions - Attendance Attendance: 3-5 times per week - Activities Leisure Activities: Cards and Games - Socialization Level of Socialization: Initiates/interacts freely with care givers and peer - Diversional Time Diversional Time: socializing, watching television - Assessment Assessment/Plan: Pt is agreeable to participate in 1:1 and group recreation therapy sessions. Pt continues to present with impaired memory deficits impacting carryover of task rules throughout sessions. Pt requires max A with all leisure task 2' poor carryover of task rules, poor initiation, impaired command following, and UE weakness. Pt is oriented to card tasks such as leland, go-fish, and oriented to tapple and 5 second rule for memory related tasks. Pt attended stroke education group although was sleeping throughout group and unable to recall topics discussed. Pt's mood continues to be stable-positve throughout stay on unit. Problems Currently Limiting Participation: R UE weakness, decrease insight of deficits, impaired safety insight, decrease leisure awareness level, decrease recall of task directions, impaired short-term memory Goals and Time Frame: Pt will tolerate participating in 30 minutes of recreation therapy sessions with min A to improve command following by date of discharge. - Provider Therapist: Georgina Delarosa Nutrition - Current Diet Current Diet/Supplement/Feedings: Moderate consistent CHO heart healthy diet - Appetite Percent Meal Consumed: 75-100% - Assessment/Goals/Time Frame Assessments/Goals/Time Frame: Pt at moderate nutritional risk. goals: 1) Pt to consume at least 75% meals without GI upset or s/s aspiration x 5 days(met, continue). 2) Pt to have glucose controlled 80-180mg/dL x 5 days(partially met, continue). Follow-up due on 12/18/2018 - Provider Provider: Raquel Rios Case Management - Psychosocial Assessment Support Systems: Sherine Trivedi () - [phone]. Jorge (son) - [phone] Psychological Interventions/Needs: Patient is awake, alert, and pleasantly confused. Patient is able to verbalize needs. Discharge Concerns: Patient lives with and son in an apartment with stairs. attends dialysis treatment on a , schedule. Patient/Family Meeting: CM met with patient and rehab team. Intervention/Goal/Outcome: 1. Goal: 24 hour supervision 2. Plan: home with VNS and 24 hr supervision/support through family 3. caregiver training with son 4. schedule f/u appts 5. continued acute rehab auth 6. continued emotional support - Discharge Plan Discharge Plan: Home with services Home Services: [facility] - Provider Provider: Heidi Lemus License Number: [id number] Rehabilitation Plan - Treatment Plan Treatment Plan: Physical Therapy, Occupational Therapy, Speech, Dietary, Patient/Family Education - Discharge Plan Estimated Date of Discharge: 12/22/18 Discharge to: Home
--- NOTE | 2018-12-17 13:46 | CP.PCM.PN ---
Subjective - Date & Time of Evaluation Date of Evaluation: 12/17/18 Time of Evaluation: 13:45 - Subjective Subjective: Devin Trivedi, born 1940 + left CVA with right HP. Past CAD s/p stents, MA, PVD, R TMA. Objective - Vital Signs/Intake and Output Vital Signs (last 24 hours): Temp Pulse Resp BP Pulse Ox 97.5 F L 86 21 130/70 97 12/17/18 10:08 12/17/18 10:08 12/17/18 10:08 12/17/18 10:08 12/17/18 08:18 - Medications Medications: Current Medications Acetaminophen (Tylenol 325mg Tab) 650 mg PO Q6 PRN PRN Reason: Headache Last Admin: 12/15/18 09:09 Dose: 650 mg Acetaminophen (Tylenol 325mg Tab) 650 mg PO Q6 PRN PRN Reason: pain level 4-10 Last Admin: 12/16/18 11:41 Dose: 650 mg Amiodarone HCl (Cordarone) 200 mg PO DAILY [facility] Last Admin: 12/17/18 08:34 Dose: 200 mg Atorvastatin Calcium (Lipitor) 80 mg PO HS [facility] Last Admin: 12/16/18 21:26 Dose: 80 mg Dextrose (Dextrose 50% Inj) 0 ml IV STAT PRN; Protocol PRN Reason: Hypoglycemia Protocol Dextrose (Glutose 15) 0 gm PO ONCE PRN; Protocol PRN Reason: Hypoglycemia Protocol Dextrose (Dextrose 50% Inj) 0 ml IV STAT PRN; Protocol PRN Reason: Hypoglycemia Protocol Dextrose (Glutose 15) 0 gm PO ONCE PRN; Protocol PRN Reason: Hypoglycemia Protocol Dipyridamole/Aspirin (Aggrenox 25-200 Mg) 1 ea PO BID [facility] Last Admin: 12/17/18 08:32 Dose: 1 ea Gabapentin (Neurontin) 300 mg PO BID [facility] Last Admin: 12/17/18 08:33 Dose: 300 mg Glucagon (Glucagen Diagnostic Kit) 0 mg IM STAT PRN; Protocol PRN Reason: Hypoglycemia Protocol Glucagon (Glucagen Diagnostic Kit) 0 mg IM STAT PRN; Protocol PRN Reason: Hypoglycemia Protocol Insulin Human Lispro (Humalog) [facility]; Protocol Last Admin: 12/17/18 12:31 Dose: 4 units Insulin Lispro Protam/Lispro Human (Humalog Mix 75/25) 25 units SC BRK [facility] Last Admin: 12/17/18 08:29 Dose: 25 units Insulin Lispro Protam/Lispro Human (Humalog Mix 75/25) 15 units SC DIN [facility] Last Admin: 12/16/18 16:53 Dose: 15 units Pregabalin (Lyrica) 50 mg PO BID [facility] Last Admin: 12/17/18 08:36 Dose: 50 mg Ramipril (Altace) 5 mg PO DAILY [facility] Last Admin: 12/17/18 08:32 Dose: 5 mg Rivaroxaban (Xarelto) 20 mg PO DAILY [facility]; Protocol Last Admin: 12/17/18 08:34 Dose: 20 mg - Labs Labs: 12/17/18 05:19 12/17/18 03:30 - Constitutional Appears: Non-toxic, No Acute Distress - Head Exam Head Exam: ATRAUMATIC, NORMAL INSPECTION, NORMOCEPHALIC - Eye Exam Eye Exam: EOMI - ENT Exam ENT Exam: Mucous Membranes Moist - Respiratory Exam Respiratory Exam: NORMAL BREATHING PATTERN - Cardiovascular Exam Cardiovascular Exam: REGULAR RHYTHM - GI/Abdominal Exam GI & Abdominal Exam: absent: Guarding - Extremities Exam Extremities Exam: absent: Calf Tenderness - Neurological Exam Neurological Exam: Alert Neuro motor strength exam: Left Upper Extremity: 5, Right Upper Extremity: 4, Left Lower Extremity: 5, Right Lower Extremity: 4 - Psychiatric Exam Psychiatric exam: Normal Affect, Normal Mood - Skin Skin Exam: Warm Assessment and Plan - Assessment and Plan (Free Text) Assessment: PT/OT to continue to help increase functional independence Team conference for d/c planning Pain: controlled Vascular: no evidence of DVT GI: No evidence of constipation or diarrhea Patient continues to be an excellent acute rehabilitation candidate and will have continued focused speech, PT, OT and recreational therapy to help facilitate a safe and appropriate d/c plan The patients plan was discussed in great detail in team conference. This was then discussed with the patient at length. The discussions directly impact on the patients plan of care. Please see the note for more details
[2018-12-18] MEDS: Insulin Lispro (humaLOG) 100 Units/ml Inj SC SCH ×4 (06:43→20:59)
[2018-12-18] MEDS: Aspirin-Dipyridamole 200-25 mg ER Cap PO SCH ×2 (08:37→17:16)
[2018-12-18] MEDS: Insulin Lispro Mix 75/25 100 units/ml (HumaLog) 10ml SC SCH ×2 (08:38→17:17)
--- NOTE | 2018-12-18 10:13 | CP.PCM.PN ---
<Francy Pena - Last Filed: 12/18/18 10:10> Subjective - Date & Time of Evaluation Date of Evaluation: 12/18/18 Time of Evaluation: 07:45 - Subjective Subjective: Patient seen and examined this morning with Dr. Rocha. No acute event reported by nursing staff, patient denies any chest pain, SOB or abdominal pain. Participating well with exercise. Objective - Vital Signs/Intake and Output Vital Signs (last 24 hours): Temp Pulse Resp BP Pulse Ox 98.1 F 75 19 147/72 100 12/18/18 08:17 12/18/18 08:37 12/18/18 08:17 12/18/18 08:37 12/18/18 08:17 - Medications Medications: Current Medications Acetaminophen (Tylenol 325mg Tab) 650 mg PO Q6 PRN PRN Reason: Headache Last Admin: 12/15/18 09:09 Dose: 650 mg Acetaminophen (Tylenol 325mg Tab) 650 mg PO Q6 PRN PRN Reason: pain level 4-10 Last Admin: 12/16/18 11:41 Dose: 650 mg Amiodarone HCl (Cordarone) 200 mg PO DAILY [facility] Last Admin: 12/18/18 08:37 Dose: 200 mg Atorvastatin Calcium (Lipitor) 80 mg PO HS [facility] Last Admin: 12/17/18 21:21 Dose: 80 mg Dextrose (Dextrose 50% Inj) 0 ml IV STAT PRN; Protocol PRN Reason: Hypoglycemia Protocol Dextrose (Glutose 15) 0 gm PO ONCE PRN; Protocol PRN Reason: Hypoglycemia Protocol Dextrose (Dextrose 50% Inj) 0 ml IV STAT PRN; Protocol PRN Reason: Hypoglycemia Protocol Dextrose (Glutose 15) 0 gm PO ONCE PRN; Protocol PRN Reason: Hypoglycemia Protocol Dipyridamole/Aspirin (Aggrenox 25-200 Mg) 1 ea PO BID [facility] Last Admin: 12/18/18 08:37 Dose: 1 ea Gabapentin (Neurontin) 300 mg PO BID [facility] Last Admin: 12/17/18 16:20 Dose: 300 mg Glucagon (Glucagen Diagnostic Kit) 0 mg IM STAT PRN; Protocol PRN Reason: Hypoglycemia Protocol Glucagon (Glucagen Diagnostic Kit) 0 mg IM STAT PRN; Protocol PRN Reason: Hypoglycemia Protocol Insulin Human Lispro (Humalog) 0 units [facility]; Protocol Last Admin: 12/18/18 06:43 Dose: 1 units Insulin Lispro Protam/Lispro Human (Humalog Mix 75/25) 25 units SC [facility] Last Admin: 12/18/18 08:38 Dose: 25 units Insulin Lispro Protam/Lispro Human (Humalog Mix 75/25) 15 units SC [facility] Last Admin: 12/17/18 16:23 Dose: 15 units Pregabalin (Lyrica) 50 mg PO BID [facility] Last Admin: 12/18/18 09:53 Dose: 50 mg Ramipril (Altace) 5 mg PO DAILY [facility] Last Admin: 12/18/18 08:36 Dose: 5 mg Rivaroxaban (Xarelto) 20 mg PO DAILY [facility]; Protocol Last Admin: 12/18/18 08:37 Dose: 20 mg - Labs Labs: 12/17/18 05:19 12/17/18 03:30 - Constitutional Appears: No Acute Distress - Head Exam Head Exam: NORMAL INSPECTION - Eye Exam Eye Exam: EOMI, PERRL - ENT Exam ENT Exam: Mucous Membranes Moist - Respiratory Exam Respiratory Exam: Clear to Ausculation Bilateral, NORMAL BREATHING PATTERN - Cardiovascular Exam Cardiovascular Exam: REGULAR RHYTHM, +S1, +S2 - GI/Abdominal Exam GI & Abdominal Exam: Soft, Normal Bowel Sounds. absent: Tenderness - Extremities Exam Extremities Exam: Normal Inspection - Back Exam Back Exam: NORMAL INSPECTION - Neurological Exam Neurological Exam: Alert, Awake, Oriented x3 Neuro motor strength exam: Left Upper Extremity: 5, Right Upper Extremity: 3, Left Lower Extremity: 5, Right Lower Extremity: 4 - Psychiatric Exam Psychiatric exam: Normal Affect - Skin Skin Exam: Normal Color Assessment and Plan - Assessment and Plan (Free Text) Assessment: A/P: 77 year old Male with a PMHx of CAD, DM and CVA admitted to acute rehabilitation unit due to RUE and RLE weakness s/p CVA, [place] [facility] [place] Right sided weakness --Improving --Neurology on board, Dr Renteria. --Physiatry on board, Continue physical therapy --Continue management as ordered Chest pain with negative Trops --Cardiology on board, Dr Armstrong/Dr Salomon. --Cardiac stress test if chest pain recurs as per cardio HTN --Controlled -- C/w Ramipril 5mg PO Paroxysmal AFib --On Amiodarone, Aggrenox and Xarelto IDDM --Continue with home medications --Insulin sliding scale and hypoglycemia protocol. DVT Prophylaxis --On Aggrenox and Xarelto. --SCD's Case discussed with Dr. Rocha, agrees with plan <Husam Rocha - Last Filed: 12/19/18 08:42> Objective - Vital Signs/Intake and Output Vital Signs (last 24 hours): Temp Pulse Resp BP Pulse Ox 97.9 F 79 20 141/70 99 12/18/18 19:57 12/18/18 19:57 12/18/18 19:57 12/18/18 19:57 12/18/18 19:57 - Medications Medications: Current Medications Acetaminophen (Tylenol 325mg Tab) 650 mg PO Q6 PRN PRN Reason: Headache Last Admin: 12/15/18 09:09 Dose: 650 mg Acetaminophen (Tylenol 325mg Tab) 650 mg PO Q6 PRN PRN Reason: pain level 4-10 Last Admin: 12/19/18 01:12 Dose: 650 mg Amiodarone HCl (Cordarone) 200 mg PO DAILY [facility] Last Admin: 12/18/18 08:37 Dose: 200 mg Atorvastatin Calcium (Lipitor) 80 mg PO HS [facility] Last Admin: 12/18/18 21:01 Dose: 80 mg Dextrose (Dextrose 50% Inj) 0 ml IV STAT PRN; Protocol PRN Reason: Hypoglycemia Protocol Dextrose (Glutose 15) 0 gm PO ONCE PRN; Protocol PRN Reason: Hypoglycemia Protocol Dextrose (Dextrose 50% Inj) 0 ml IV STAT PRN; Protocol PRN Reason: Hypoglycemia Protocol Dextrose (Glutose 15) 0 gm PO ONCE PRN; Protocol PRN Reason: Hypoglycemia Protocol Dipyridamole/Aspirin (Aggrenox 25-200 Mg) 1 ea PO BID [facility] Last Admin: 12/18/18 17:16 Dose: 1 ea Gabapentin (Neurontin) 300 mg PO BID [facility] Last Admin: 12/17/18 16:20 Dose: 300 mg Glucagon (Glucagen Diagnostic Kit) 0 mg IM STAT PRN; Protocol PRN Reason: Hypoglycemia Protocol Glucagon (Glucagen Diagnostic Kit) 0 mg IM STAT PRN; Protocol PRN Reason: Hypoglycemia Protocol Insulin Human Lispro (Humalog) 0 units [facility]; Protocol Last Admin: 12/19/18 06:47 Dose: Not Given Insulin Lispro Protam/Lispro Human (Humalog Mix 75/25) 25 units [facility] Last Admin: 12/18/18 08:38 Dose: 25 units Insulin Lispro Protam/Lispro Human (Humalog Mix 75/25) 15 units [facility] Last Admin: 12/18/18 17:17 Dose: 15 units Pregabalin (Lyrica) 50 mg PO BID [facility] Last Admin: 12/18/18 17:15 Dose: 50 mg Ramipril (Altace) 5 mg PO DAILY [facility] Last Admin: 12/18/18 08:36 Dose: 5 mg Rivaroxaban (Xarelto) 20 mg PO DAILY [facility]; Protocol Last Admin: 12/18/18 08:37 Dose: 20 mg - Labs Labs: 12/17/18 05:19 12/17/18 03:30 Assessment and Plan - Assessment and Plan (Free Text) Assessment: Patient was personally seen and examined by me in rounds with residents. Available labs and diagnostic data reviewed. Case, Patient's condition and management plan discussed with residents in rounds. Agree with resident's progress note. Plan: As ordered.
[2018-12-19] MEDS: Insulin Lispro (humaLOG) 100 Units/ml Inj SC SCH ×4 (06:47→21:13)
--- NOTE | 2018-12-19 07:56 | CP.PCM.PN ---
<Francy Pena - Last Filed: 12/19/18 08:00> Subjective - Date & Time of Evaluation Date of Evaluation: 12/19/18 Time of Evaluation: 07:54 - Subjective Subjective: Patient seen and examined this morning at bedside with Dr. Rocha. No acute event overnight, good progress with PT. Denies any chest pain, SOB, dizziness or abdominal pain. Objective - Vital Signs/Intake and Output Vital Signs (last 24 hours): Temp Pulse Resp BP Pulse Ox 97.9 F 79 20 141/70 99 12/18/18 19:57 12/18/18 19:57 12/18/18 19:57 12/18/18 19:57 12/18/18 19:57 - Medications Medications: Current Medications Acetaminophen (Tylenol 325mg Tab) 650 mg PO Q6 PRN PRN Reason: Headache Last Admin: 12/15/18 09:09 Dose: 650 mg Acetaminophen (Tylenol 325mg Tab) 650 mg PO Q6 PRN PRN Reason: pain level 4-10 Last Admin: 12/19/18 01:12 Dose: 650 mg Amiodarone HCl (Cordarone) 200 mg PO DAILY [facility] Last Admin: 12/18/18 08:37 Dose: 200 mg Atorvastatin Calcium (Lipitor) 80 mg PO HS [facility] Last Admin: 12/18/18 21:01 Dose: 80 mg Dextrose (Dextrose 50% Inj) 0 ml IV STAT PRN; Protocol PRN Reason: Hypoglycemia Protocol Dextrose (Glutose 15) 0 gm PO ONCE PRN; Protocol PRN Reason: Hypoglycemia Protocol Dextrose (Dextrose 50% Inj) 0 ml IV STAT PRN; Protocol PRN Reason: Hypoglycemia Protocol Dextrose (Glutose 15) 0 gm PO ONCE PRN; Protocol PRN Reason: Hypoglycemia Protocol Dipyridamole/Aspirin (Aggrenox 25-200 Mg) 1 ea PO BID [facility] Last Admin: 12/18/18 17:16 Dose: 1 ea Gabapentin (Neurontin) 300 mg PO BID [facility] Last Admin: 12/17/18 16:20 Dose: 300 mg Glucagon (Glucagen Diagnostic Kit) 0 mg IM STAT PRN; Protocol PRN Reason: Hypoglycemia Protocol Glucagon (Glucagen Diagnostic Kit) 0 mg IM STAT PRN; Protocol PRN Reason: Hypoglycemia Protocol Insulin Human Lispro (Humalog) 0 units [facility]; Protocol Last Admin: 05/02/19 06:47 Dose: Not Given Insulin Lispro Protam/Lispro Human (Humalog Mix 75/25) 25 units SC BRK [facility] Last Admin: 12/18/18 08:38 Dose: 25 units Insulin Lispro Protam/Lispro Human (Humalog Mix 75/25) 15 units SC DIN [facility] Last Admin: 12/18/18 17:17 Dose: 15 units Pregabalin (Lyrica) 50 mg PO BID [facility] Last Admin: 12/18/18 17:15 Dose: 50 mg Ramipril (Altace) 5 mg PO DAILY [facility] Last Admin: 12/18/18 08:36 Dose: 5 mg Rivaroxaban (Xarelto) 20 mg PO DAILY [facility]; Protocol Last Admin: 12/18/18 08:37 Dose: 20 mg - Labs Labs: 12/17/18 05:19 12/17/18 03:30 - Constitutional Appears: No Acute Distress - Head Exam Head Exam: NORMAL INSPECTION - Eye Exam Eye Exam: EOMI, PERRL - ENT Exam ENT Exam: Mucous Membranes Moist - Neck Exam Neck Exam: Full ROM - Respiratory Exam Respiratory Exam: Clear to Ausculation Bilateral, NORMAL BREATHING PATTERN - Cardiovascular Exam Cardiovascular Exam: REGULAR RHYTHM, +S1, +S2 - GI/Abdominal Exam GI & Abdominal Exam: Soft, Normal Bowel Sounds - Extremities Exam Extremities Exam: absent: Tenderness - Back Exam Back Exam: NORMAL INSPECTION - Neurological Exam Neurological Exam: Alert, Awake, Oriented x3 Neuro motor strength exam: Left Upper Extremity: 5, Right Upper Extremity: 3, Left Lower Extremity: 5, Right Lower Extremity: 4 - Psychiatric Exam Psychiatric exam: Normal Affect - Skin Skin Exam: Normal Color Assessment and Plan - Assessment and Plan (Free Text) Assessment: A/P: 77 year old Male with a PMHx of CAD, DM and CVA admitted to acute rehabilitation unit due to RUE and RLE weakness s/p CVA, transferred from [facility] [place]. Right sided weakness --Improving --Neurology on board, Dr Renteria. --Physiatry on board, Continue physical therapy --Continue management as ordered Chest pain with negative Trops --Improved --Cardiology on board, Dr Armstrong/Dr Salomon. --Cardiac stress test if chest pain recurs as per cardio HTN --Controlled --C/w Ramipril 5mg PO Paroxysmal AFib --On Amiodarone, Aggrenox and Xarelto IDDM --Continue with home medications --Insulin sliding scale and hypoglycemia protocol. DVT Prophylaxis --On Aggrenox and Xarelto. --SCD's Case discussed with Dr. Rocha, agrees with plan <Husam Rocha - Last Filed: 12/19/18 08:41> Objective - Vital Signs/Intake and Output Vital Signs (last 24 hours): Temp Pulse Resp BP Pulse Ox 97.9 F 79 20 141/70 99 12/18/18 19:57 12/18/18 19:57 12/18/18 19:57 12/18/18 19:57 12/18/18 19:57 - Medications Medications: Current Medications Acetaminophen (Tylenol 325mg Tab) 650 mg PO Q6 PRN PRN Reason: Headache Last Admin: 12/15/18 09:09 Dose: 650 mg Acetaminophen (Tylenol 325mg Tab) 650 mg PO Q6 PRN PRN Reason: pain level 4-10 Last Admin: 12/19/18 01:12 Dose: 650 mg Amiodarone HCl (Cordarone) 200 mg PO DAILY [facility] Last Admin: 12/18/18 08:37 Dose: 200 mg Atorvastatin Calcium (Lipitor) 80 mg PO HS [facility] Last Admin: 12/18/18 21:01 Dose: 80 mg Dextrose (Dextrose 50% Inj) 0 ml IV STAT PRN; Protocol PRN Reason: Hypoglycemia Protocol Dextrose (Glutose 15) 0 gm PO ONCE PRN; Protocol PRN Reason: Hypoglycemia Protocol Dextrose (Dextrose 50% Inj) 0 ml IV STAT PRN; Protocol PRN Reason: Hypoglycemia Protocol Dextrose (Glutose 15) 0 gm PO ONCE PRN; Protocol PRN Reason: Hypoglycemia Protocol Dipyridamole/Aspirin (Aggrenox 25-200 Mg) 1 ea PO BID [facility] Last Admin: 12/18/18 17:16 Dose: 1 ea Gabapentin (Neurontin) 300 mg PO BID [facility] Last Admin: 12/17/18 16:20 Dose: 300 mg Glucagon (Glucagen Diagnostic Kit) 0 mg IM STAT PRN; Protocol PRN Reason: Hypoglycemia Protocol Glucagon (Glucagen Diagnostic Kit) 0 mg IM STAT PRN; Protocol PRN Reason: Hypoglycemia Protocol Insulin Human Lispro (Humalog) 0 units [facility]; Protocol Last Admin: 12/19/18 06:47 Dose: Not Given Insulin Lispro Protam/Lispro Human (Humalog Mix 75/25) 25 units SC BRK [facility] Last Admin: 12/18/18 08:38 Dose: 25 units Insulin Lispro Protam/Lispro Human (Humalog Mix 75/25) 15 units SC DIN [facility] Last Admin: 12/18/18 17:17 Dose: 15 units Pregabalin (Lyrica) 50 mg PO BID [facility] Last Admin: 12/18/18 17:15 Dose: 50 mg Ramipril (Altace) 5 mg PO DAILY [facility] Last Admin: 12/18/18 08:36 Dose: 5 mg Rivaroxaban (Xarelto) 20 mg PO DAILY [facility]; Protocol Last Admin: 12/18/18 08:37 Dose: 20 mg - Labs Labs: 12/17/18 05:19 12/17/18 03:30 Assessment and Plan - Assessment and Plan (Free Text) Assessment: Patient was personally seen and examined by me in rounds with residents. Available labs and diagnostic data reviewed. Case, Patient's condition and management plan discussed with residents in round s. Agree with resident's progress note. Plan: As ordered.
[2018-12-19] MEDS: Aspirin-Dipyridamole 200-25 mg ER Cap PO SCH ×2 (08:49→17:24)
[2018-12-19] MEDS: Insulin Lispro Mix 75/25 100 units/ml (HumaLog) 10ml SC SCH ×2 (08:50→17:24)
--- NOTE | 2018-12-19 17:42 | CP.PCM.PN ---
Subjective - Date & Time of Evaluation Date of Evaluation: 12/19/18 Time of Evaluation: 17:40 - Subjective Subjective: Devin Trivedi, born 1940 + left CVA with right HP. Past CAD s/p stents, [place], PVD, R TMA. Objective - Vital Signs/Intake and Output Vital Signs (last 24 hours): Temp Pulse Resp BP Pulse Ox 97.6 F 76 21 131/65 96 12/19/18 08:48 12/19/18 08:50 12/19/18 08:48 12/19/18 08:50 12/19/18 08:48 - Medications Medications: Current Medications Acetaminophen (Tylenol 325mg Tab) 650 mg PO Q6 PRN PRN Reason: Headache Last Admin: 12/19/18 08:46 Dose: 650 mg Acetaminophen (Tylenol 325mg Tab) 650 mg PO Q6 PRN PRN Reason: pain level 4-10 Last Admin: 12/19/18 01:12 Dose: 650 mg Amiodarone HCl (Cordarone) 200 mg PO DAILY [facility] Last Admin: 12/19/18 08:50 Dose: 200 mg Atorvastatin Calcium (Lipitor) 80 mg PO [facility] Last Admin: 12/18/18 21:01 Dose: 80 mg Dextrose (Dextrose 50% Inj) 0 ml IV STAT PRN; Protocol PRN Reason: Hypoglycemia Protocol Dextrose (Glutose 15) 0 gm PO ONCE PRN; Protocol PRN Reason: Hypoglycemia Protocol Dextrose (Dextrose 50% Inj) 0 ml IV STAT PRN; Protocol PRN Reason: Hypoglycemia Protocol Dextrose (Glutose 15) 0 gm PO ONCE PRN; Protocol PRN Reason: Hypoglycemia Protocol Dipyridamole/Aspirin (Aggrenox 25-200 Mg) 1 ea PO BID [facility] Last Admin: 12/19/18 17:24 Dose: 1 ea Gabapentin (Neurontin) 300 mg PO BID [facility] Last Admin: 12/17/18 16:20 Dose: 300 mg Glucagon (Glucagen Diagnostic Kit) 0 mg IM STAT PRN; Protocol PRN Reason: Hypoglycemia Protocol Glucagon (Glucagen Diagnostic Kit) 0 mg IM STAT PRN; Protocol PRN Reason: Hypoglycemia Protocol Insulin Human Lispro (Humalog) 0 units SC [facility]; Protocol Last Admin: 12/19/18 17:23 Dose: Not Given Insulin Lispro Protam/Lispro Human (Humalog Mix 75/25) 25 units SC [facility] Last Admin: 12/19/18 08:50 Dose: 25 units Insulin Lispro Protam/Lispro Human (Humalog Mix 75/25) 15 units SC DIN [facility] Last Admin: 12/19/18 17:24 Dose: 15 units Pregabalin (Lyrica) 50 mg PO BID [facility] Last Admin: 12/19/18 17:24 Dose: 50 mg Ramipril (Altace) 5 mg PO DAILY [facility] Last Admin: 12/19/18 08:49 Dose: 5 mg Rivaroxaban (Xarelto) 20 mg PO DAILY [facility]; Protocol Last Admin: 12/19/18 08:49 Dose: 20 mg - Labs Labs: 12/17/18 05:19 12/17/18 03:30 - Constitutional Appears: Non-toxic, No Acute Distress - Head Exam Head Exam: ATRAUMATIC, NORMAL INSPECTION, NORMOCEPHALIC - Eye Exam Eye Exam: EOMI - ENT Exam ENT Exam: Mucous Membranes Moist - Respiratory Exam Respiratory Exam: NORMAL BREATHING PATTERN - Cardiovascular Exam Cardiovascular Exam: REGULAR RHYTHM - GI/Abdominal Exam GI & Abdominal Exam: Normal Bowel Sounds - Rectal Exam Rectal Exam: NORMAL INSPECTION - Skin Skin Exam: Warm Assessment and Plan - Assessment and Plan (Free Text) Assessment: PT/OT to continue to help increase functional independence Team conference for d/c planning Pain: controlled Vascular: no evidence of DVT GI: No evidence of constipation or diarrhea Patient continues to be an excellent acute rehabilitation candidate and will have continued focused speech, PT, OT and recreational therapy to help facilitate a safe and appropriate d/c plan He has made good progress and is set for d/c home 10/04/18
[2018-12-20] MEDS: Insulin Lispro (humaLOG) 100 Units/ml Inj SC SCH ×4 (07:17→21:42)
[2018-12-20] MEDS: Aspirin-Dipyridamole 200-25 mg ER Cap PO SCH ×2 (08:20→17:01)
[2018-12-20] MEDS: Insulin Lispro Mix 75/25 100 units/ml (HumaLog) 10ml SC SCH ×2 (08:22→17:03)
--- NOTE | 2018-12-20 09:33 | CP.PCM.PN ---
<Francy Pena - Last Filed: 12/20/18 09:35> Subjective - Date & Time of Evaluation Date of Evaluation: 12/20/18 Time of Evaluation: 07:20 - Subjective Subjective: Patient seen and examined this morning with Dr. Rocha. Patient reports no acute event overnight, denies any pain this morning, good progress with PT/exercise. Denies any chest pain, SOB, dizziness or abdominal pain. Objective - Vital Signs/Intake and Output Vital Signs (last 24 hours): Temp Pulse Resp BP Pulse Ox 97.3 F L 65 20 141/76 97 12/20/18 08:24 12/20/18 08:20 12/20/18 07:31 12/20/18 08:20 12/20/18 07:31 - Medications Medications: Current Medications Acetaminophen (Tylenol 325mg Tab) 650 mg PO Q6 PRN PRN Reason: Headache Last Admin: 12/19/18 18:57 Dose: 650 mg Acetaminophen (Tylenol 325mg Tab) 650 mg PO Q6 PRN PRN Reason: pain level 4-10 Last Admin: 12/20/18 08:24 Dose: 650 mg Amiodarone HCl (Cordarone) 200 mg PO DAILY [facility] Last Admin: 12/20/18 08:20 Dose: 200 mg Atorvastatin Calcium (Lipitor) 80 mg PO HS [facility] Last Admin: 12/19/18 21:12 Dose: 80 mg Dextrose (Dextrose 50% Inj) 0 ml IV STAT PRN; Protocol PRN Reason: Hypoglycemia Protocol Dextrose (Glutose 15) 0 gm PO ONCE PRN; Protocol PRN Reason: Hypoglycemia Protocol Dextrose (Dextrose 50% Inj) 0 ml IV STAT PRN; Protocol PRN Reason: Hypoglycemia Protocol Dextrose (Glutose 15) 0 gm PO ONCE PRN; Protocol PRN Reason: Hypoglycemia Protocol Dipyridamole/Aspirin (Aggrenox 25-200 Mg) 1 ea PO BID [facility] Last Admin: 12/20/18 08:20 Dose: 1 ea Gabapentin (Neurontin) 300 mg PO BID [facility] Last Admin: 12/17/18 16:20 Dose: 300 mg Glucagon (Glucagen Diagnostic Kit) 0 mg IM STAT PRN; Protocol PRN Reason: Hypoglycemia Protocol Glucagon (Glucagen Diagnostic Kit) 0 mg IM STAT PRN; Protocol PRN Reason: Hypoglycemia Protocol Insulin Human Lispro (Humalog) 0 units SC [facility]; Protocol Last Admin: 12/20/18 07:17 Dose: Not Given Insulin Lispro Protam/Lispro Human (Humalog Mix 75/25) 25 units SC BRK [facility] Last Admin: 12/20/18 08:22 Dose: 25 units Insulin Lispro Protam/Lispro Human (Humalog Mix 75/25) 15 units SC DIN [facility] Last Admin: 12/19/18 17:24 Dose: 15 units Pregabalin (Lyrica) 50 mg PO BID [facility] Last Admin: 12/20/18 08:24 Dose: 50 mg Ramipril (Altace) 5 mg PO DAILY [facility] Last Admin: 12/20/18 08:20 Dose: 5 mg Rivaroxaban (Xarelto) 20 mg PO DAILY [facility]; Protocol Last Admin: 12/20/18 08:21 Dose: 20 mg - Labs Labs: 12/17/18 05:19 12/17/18 03:30 - Constitutional Appears: No Acute Distress - Head Exam Head Exam: NORMAL INSPECTION - Eye Exam Eye Exam: Normal appearance - ENT Exam ENT Exam: Mucous Membranes Moist - Neck Exam Neck Exam: Normal Inspection - Respiratory Exam Respiratory Exam: Clear to Ausculation Bilateral, NORMAL BREATHING PATTERN - Cardiovascular Exam Cardiovascular Exam: REGULAR RHYTHM, +S1, +S2 - GI/Abdominal Exam GI & Abdominal Exam: Soft, Normal Bowel Sounds. absent: Tenderness - Extremities Exam Extremities Exam: absent: Tenderness - Back Exam Back Exam: NORMAL INSPECTION - Neurological Exam Neurological Exam: Alert, Awake, Oriented x3 Neuro motor strength exam: Left Upper Extremity: 5, Right Upper Extremity: 3, Left Lower Extremity: 5, Right Lower Extremity: 4 - Psychiatric Exam Psychiatric exam: Normal Affect - Skin Skin Exam: Normal Color Assessment and Plan - Assessment and Plan (Free Text) Assessment: A/P: 77 year old Male with a PMHx of CAD, DM and CVA admitted to acute rehabilitation unit due to RUE and RLE weakness s/p CVA, transferred from [facility] [place]. Right sided weakness --Improving --Neurology on board, Dr Renteria. --Physiatry on board, Continue physical therapy --Continue management as ordered Chest pain with negative Trops --Improved --Cardiology on board, Dr Armstrong/Dr Salomon. --Cardiac stress test if chest pain recurs as per cardio HTN --Controlled --C/w Ramipril 5mg PO Paroxysmal AFib --On Amiodarone, Aggrenox and Xarelto IDDM --Continue with home medications --Insulin sliding scale and hypoglycemia protocol. DVT Prophylaxis --On Aggrenox and Xarelto. --SCD's Case discussed with Dr. Rocha, agrees with plan <Husam Rocha - Last Filed: 12/21/18 10:35> Objective - Vital Signs/Intake and Output Vital Signs (last 24 hours): Temp Pulse Resp BP Pulse Ox 98.2 F 72 19 132/59 L 99 12/21/18 08:06 12/21/18 08:17 12/21/18 08:06 12/21/18 08:17 12/21/18 08:06 - Medications Medications: Current Medications Acetaminophen (Tylenol 325mg Tab) 650 mg PO Q6 PRN PRN Reason: Headache Last Admin: 12/19/18 18:57 Dose: 650 mg Acetaminophen (Tylenol 325mg Tab) 650 mg PO Q6 PRN PRN Reason: pain level 4-10 Last Admin: 12/21/18 00:03 Dose: 650 mg Amiodarone HCl (Cordarone) 200 mg PO DAILY [facility] Last Admin: 12/21/18 08:17 Dose: 200 mg Atorvastatin Calcium (Lipitor) 80 mg PO HS [facility] Last Admin: 12/20/18 21:42 Dose: 80 mg Dextrose (Dextrose 50% Inj) 0 ml IV STAT PRN; Protocol PRN Reason: Hypoglycemia Protocol Dextrose (Glutose 15) 0 gm PO ONCE PRN; Protocol PRN Reason: Hypoglycemia Protocol Dextrose (Dextrose 50% Inj) 0 ml IV STAT PRN; Protocol PRN Reason: Hypoglycemia Protocol Dextrose (Glutose 15) 0 gm PO ONCE PRN; Protocol PRN Reason: Hypoglycemia Protocol Dipyridamole/Aspirin (Aggrenox 25-200 Mg) 1 ea PO BID [facility] Last Admin: 12/21/18 08:17 Dose: 1 ea Gabapentin (Neurontin) 300 mg PO BID [facility] Last Admin: 12/17/18 16:20 Dose: 300 mg Glucagon (Glucagen Diagnostic Kit) 0 mg IM STAT PRN; Protocol PRN Reason: Hypoglycemia Protocol Glucagon (Glucagen Diagnostic Kit) 0 mg IM STAT PRN; Protocol PRN Reason: Hypoglycemia Protocol Insulin Human Lispro (Humalog) 0 units SC [facility]; Protocol Last Admin: 12/21/18 07:51 Dose: 1 units Insulin Lispro Protam/Lispro Human (Humalog Mix 75/25) 25 units SC BRK [facility] Last Admin: 12/21/18 08:18 Dose: 25 units Insulin Lispro Protam/Lispro Human (Humalog Mix 75/25) 15 units SC DIN [facility] Last Admin: 12/20/18 17:03 Dose: 15 units Pregabalin (Lyrica) 50 mg PO BID [facility] Last Admin: 12/21/18 08:21 Dose: 50 mg Ramipril (Altace) 5 mg PO DAILY [facility] Last Admin: 12/21/18 08:17 Dose: 5 mg Rivaroxaban (Xarelto) 20 mg PO DAILY [facility]; Protocol Last Admin: 12/21/18 08:20 Dose: 20 mg - Labs Labs: 12/17/18 05:19 12/17/18 03:30 Assessment and Plan - Assessment and Plan (Free Text) Assessment: Patient was personally seen and examined by me in rounds with residents. Available labs and diagnostic data reviewed. Case, Patient's condition and management plan discussed with residents in rounds. Agree with resident's progress note. Plan: As ordered.
--- NOTE | 2018-12-20 16:10 | CP.PCM.PN ---
Subjective - Date & Time of Evaluation Date of Evaluation: 12/20/18 Time of Evaluation: 16:10 - Subjective Subjective: Patient is stable and doing well set for d/c home 12/22/18 continue current care Objective - Vital Signs/Intake and Output Vital Signs (last 24 hours): Temp Pulse Resp BP Pulse Ox 97.3 F L 65 20 141/76 97 12/20/18 08:24 12/20/18 08:20 12/20/18 07:31 12/20/18 08:20 12/20/18 07:31 - Medications Medications: Current Medications Acetaminophen (Tylenol 325mg Tab) 650 mg PO Q6 PRN PRN Reason: Headache Last Admin: 12/19/18 18:57 Dose: 650 mg Acetaminophen (Tylenol 325mg Tab) 650 mg PO Q6 PRN PRN Reason: pain level 4-10 Last Admin: 12/20/18 08:24 Dose: 650 mg Amiodarone HCl (Cordarone) 200 mg PO DAILY [facility] Last Admin: 12/20/18 08:20 Dose: 200 mg Atorvastatin Calcium (Lipitor) 80 mg PO [facility] Last Admin: 12/19/18 21:12 Dose: 80 mg Dextrose (Dextrose 50% Inj) 0 ml IV STAT PRN; Protocol PRN Reason: Hypoglycemia Protocol Dextrose (Glutose 15) 0 gm PO ONCE PRN; Protocol PRN Reason: Hypoglycemia Protocol Dextrose (Dextrose 50% Inj) 0 ml IV STAT PRN; Protocol PRN Reason: Hypoglycemia Protocol Dextrose (Glutose 15) 0 gm PO ONCE PRN; Protocol PRN Reason: Hypoglycemia Protocol Dipyridamole/Aspirin (Aggrenox 25-200 Mg) 1 ea PO BID [facility] Last Admin: 12/20/18 08:20 Dose: 1 ea Gabapentin (Neurontin) 300 mg PO BID [facility] Last Admin: 12/17/18 16:20 Dose: 300 mg Glucagon (Glucagen Diagnostic Kit) 0 mg IM STAT PRN; Protocol PRN Reason: Hypoglycemia Protocol Glucagon (Glucagen Diagnostic Kit) 0 mg IM STAT PRN; Protocol PRN Reason: Hypoglycemia Protocol Insulin Human Lispro (Humalog) 0 units SC [facility]; Protocol Last Admin: 12/20/18 11:46 Dose: 3 units Insulin Lispro Protam/Lispro Human (Humalog Mix 75/25) 25 units SC BRK [facility] Last Admin: 12/20/18 08:22 Dose: 25 units Insulin Lispro Protam/Lispro Human (Humalog Mix 75/25) 15 units SC DIN [facility] Last Admin: 12/19/18 17:24 Dose: 15 units Pregabalin (Lyrica) 50 mg PO BID [facility] Last Admin: 12/20/18 08:24 Dose: 50 mg Ramipril (Altace) 5 mg PO DAILY [facility] Last Admin: 12/20/18 08:20 Dose: 5 mg Rivaroxaban (Xarelto) 20 mg PO DAILY [facility]; Protocol Last Admin: 12/20/18 08:21 Dose: 20 mg - Labs Labs: 12/17/18 05:19 12/17/18 03:30
[2018-12-21] MEDS: Insulin Lispro (humaLOG) 100 Units/ml Inj SC SCH ×4 (07:51→22:06)
[2018-12-21] MEDS: Aspirin-Dipyridamole 200-25 mg ER Cap PO SCH ×2 (08:17→17:47)
[2018-12-21] MEDS: Insulin Lispro Mix 75/25 100 units/ml (HumaLog) 10ml SC SCH ×2 (08:18→17:00)
--- NOTE | 2018-12-21 11:19 | CP.PCM.PN ---
Subjective - Date & Time of Evaluation Date of Evaluation: 12/21/18 Time of Evaluation: 09:15 - Subjective Subjective: no acute complaints at present Objective - Vital Signs/Intake and Output Vital Signs (last 24 hours): Temp Pulse Resp BP Pulse Ox 98.2 F 72 19 132/59 L 99 12/21/18 08:06 12/21/18 08:17 12/21/18 08:06 12/21/18 08:17 12/21/18 08:06 - Medications Medications: Current Medications Acetaminophen (Tylenol 325mg Tab) 650 mg PO Q6 PRN PRN Reason: Headache Last Admin: 12/19/18 18:57 Dose: 650 mg Acetaminophen (Tylenol 325mg Tab) 650 mg PO Q6 PRN PRN Reason: pain level 4-10 Last Admin: 12/21/18 00:03 Dose: 650 mg Amiodarone HCl (Cordarone) 200 mg PO DAILY [facility] Last Admin: 12/21/18 08:17 Dose: 200 mg Atorvastatin Calcium (Lipitor) 80 mg PO [facility] Last Admin: 12/20/18 21:42 Dose: 80 mg Dextrose (Dextrose 50% Inj) 0 ml IV STAT PRN; Protocol PRN Reason: Hypoglycemia Protocol Dextrose (Glutose 15) 0 gm PO ONCE PRN; Protocol PRN Reason: Hypoglycemia Protocol Dextrose (Dextrose 50% Inj) 0 ml IV STAT PRN; Protocol PRN Reason: Hypoglycemia Protocol Dextrose (Glutose 15) 0 gm PO ONCE PRN; Protocol PRN Reason: Hypoglycemia Protocol Dipyridamole/Aspirin (Aggrenox 25-200 Mg) 1 ea PO BID [facility] Last Admin: 12/21/18 08:17 Dose: 1 ea Gabapentin (Neurontin) 300 mg PO BID [facility] Last Admin: 12/17/18 16:20 Dose: 300 mg Glucagon (Glucagen Diagnostic Kit) 0 mg IM STAT PRN; Protocol PRN Reason: Hypoglycemia Protocol Glucagon (Glucagen Diagnostic Kit) 0 mg IM STAT PRN; Protocol PRN Reason: Hypoglycemia Protocol Insulin Human Lispro (Humalog) 0 units SC [facility]; Protocol Last Admin: 12/21/18 07:51 Dose: 1 units Insulin Lispro Protam/Lispro Human (Humalog Mix 75/25) 25 units SC BRK [facility] Last Admin: 12/21/18 08:18 Dose: 25 units Insulin Lispro Protam/Lispro Human (Humalog Mix 75/25) 15 units SC DIN [facility] Last Admin: 12/20/18 17:03 Dose: 15 units Pregabalin (Lyrica) 50 mg PO BID [facility] Last Admin: 12/21/18 08:21 Dose: 50 mg Ramipril (Altace) 5 mg PO DAILY [facility] Last Admin: 12/21/18 08:17 Dose: 5 mg Rivaroxaban (Xarelto) 20 mg PO DAILY [facility]; Protocol Last Admin: 12/21/18 08:20 Dose: 20 mg - Labs Labs: 12/17/18 05:19 12/17/18 03:30 - Constitutional Appears: Well - Head Exam Head Exam: ATRAUMATIC, NORMAL INSPECTION, NORMOCEPHALIC - Eye Exam Eye Exam: EOMI, Normal appearance Pupil Exam: NORMAL ACCOMODATION, PERRL - Neck Exam Neck Exam: Full ROM - Respiratory Exam Respiratory Exam: Clear to Ausculation Bilateral, NORMAL BREATHING PATTERN - Cardiovascular Exam Cardiovascular Exam: REGULAR RHYTHM - GI/Abdominal Exam GI & Abdominal Exam: Soft, Normal Bowel Sounds - Rectal Exam Rectal Exam: NORMAL INSPECTION - Exam External exam: NORMAL EXTERNAL EXAM - Extremities Exam Extremities Exam: Full ROM - Back Exam Back Exam: NORMAL INSPECTION - Neurological Exam Neurological Exam: Alert - Psychiatric Exam Psychiatric exam: Normal Mood - Skin Skin Exam: Normal Color Assessment and Plan (1) Ischemic stroke Assessment & Plan: covering for Dr West, to continue with physical, occupational, rec therapy program Status: Acute
--- NOTE | 2018-12-21 13:31 | PN ---
DATE: 12/21/2018 SUBJECTIVE: The patient seen and examined. Interim events noted. Physiatry followup and intervention noted and appreciated. The patient remains in acute rehab unit. The patient feels okay. Denies any specific complaint. No specific issue reported by nursing staff. PHYSICAL EXAMINATION: GENERAL: The patient is in no acute distress. VITAL SIGNS: Stable. Physical exam is essentially unchanged. DIAGNOSTIC DATA: Available diagnostic data reviewed. ASSESSMENT AND PLAN: Overall, the patient is clinically stable. Plan as ordered. Husam Rocha MD
[2018-12-22] MEDS: Insulin Lispro (humaLOG) 100 Units/ml Inj SC SCH ×2 (06:56→12:38)
[2018-12-22 08:46] VITALS: BP 148/76; PULSE 65; RESP 19; TEMP 97.3; O2SAT 99
[2018-12-22] MEDS: Aspirin-Dipyridamole 200-25 mg ER Cap PO SCH (08:49)
[2018-12-22] MEDS: Insulin Lispro Mix 75/25 100 units/ml (HumaLog) 10ml SC SCH (08:50)
--- NOTE | 2018-12-23 15:50 | PN ---
DATE: 12/22/2018 SUBJECTIVE: The patient is seen and examined. Interim events noted. Consults noted and appreciated. intervention noted and appreciated. The patient remains in acute rehab unit. The patient feels okay. Denies any specific complaints. No chest pain. No shortness of breath. . Weakness improved. PHYSICAL EXAMINATION: GENERAL: The patient is in no acute distress. VITAL SIGNS: Stable. HEART: S1 and S2, normal and regular. LUNGS: Good bilateral air exchange. ABDOMEN: Soft and nontender. EXTREMITIES: No edema, no calf swelling, no tenderness, no acute ischemia. CENTRAL NERVOUS SYSTEM: Essentially unchanged. The patient has weakness. DIAGNOSTIC DATA: Available diagnostic data reviewed. ASSESSMENT AND PLAN: Overall, the patient is clinically stable. Plan as ordered. Husam Rocha MD
== END 2018-12-22 14:00 | disposition home or self-care (01) | DRG 57 ==
PROVIDERS: ADMIT Internal Medicine; ATTEND Internal Medicine
PROC: F07Z9FZ Gait Training/Functional Ambulation Treatment using Assistive, Adaptive, Supportive or Protective Equipment (ICD-10-PCS; principal; 2018-12-06)
PROC: F08Z4FZ Home Management Treatment using Assistive, Adaptive, Supportive or Protective Equipment (ICD-10-PCS; 2018-12-06)
PROC: F07L6FZ Therapeutic Exercise Treatment of Musculoskeletal System - Lower Back / Lower Extremity using Assistive, Adaptive, Supportive or Protective Equipment (ICD-10-PCS; 2018-12-06)
DX: I69.351 Hemiplegia and hemiparesis following cerebral infarction affecting right dominant side (principal); E11.40 Type 2 diabetes mellitus with diabetic neuropathy, unspecified; E11.51 Type 2 diabetes mellitus with diabetic peripheral angiopathy without gangrene; E11.65 Type 2 diabetes mellitus with hyperglycemia; I48.0 Paroxysmal atrial fibrillation; I25.10 Atherosclerotic heart disease of native coronary artery without angina pectoris; R07.9 Chest pain, unspecified; I10 Essential (primary) hypertension; I49.3 Ventricular premature depolarization; E78.5 Hyperlipidemia, unspecified; E78.00 Pure hypercholesterolemia, unspecified; I25.2 Old myocardial infarction; Z95.5 Presence of coronary angioplasty implant and graft; Z89.431 Acquired absence of right foot